=== PATIENT | female | born 1975 | race Caucasian/White ===

== ENCOUNTER 2017-03-19 10:30 | Outpatient (RCR) | payer BC ==
--- NOTE | 2017-03-13 15:51 | PT INITIAL EVALUATION ---
MEDICAL DIAGNOSIS: Stage 4 Breast Cancer TREATMENT DIAGNOSIS: Stage 4 Breast Cancer, Generalized Weakness DATE OF ONSET: 02/19/17 SUBJECTIVE: Kirti is a 42 year-old female presenting to physical therapy following progressive weakness secondary to stage 4 breast cancer diagnosis. Pt reports that she was first diagnosed in 2012 upon which she received chemotherapy. Following initiating treatment, pt had further progression of disease with metastases to the bones including ribs, pelvis, femur and shoulders. Pt was started on a medication which reduced spreading until this spring when it began spreading again. Pt had radiation of the liver to eliminate metastases present there. Pt has recently started on chemo again to manage progression until her liver enzymes improve so that she can receive immunotherapy. Pt is currently on her second round of chemo. Pt reports that she has had no difficulties or pain with her shoulders or upper back, but has started to develop low back pain as well as generalized weakness in her LE with occasional ache. Pt reports that her back and legs feel sore and tired at the end of the day and that she frequently has difficulty with tasks such as squatting, or dressing if she cannot sit down while donning and doffing pants. Pt reports that she was previously active with cross country skiing, and hiking , but has been very sedentary lately. Pt has a 5 year-old son that she would like to keep up with. 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 ROM: LE and UE ROM full without pain. Strength: LE MMT: Hip: flexion: B 4/5, Ext: B 3+/5, abd: B 5/5, Add B 4+/5. Knee : flexion: B 4+/5, ext: L 4+/5, R 5/5. Ankle: DF: B 4+/5, PF B: 5/5. 3 Finger Pinch [employer] strength: L 15#, R 14# (pt is right handed) Transverse Abdominal Activation: Grade 1 Sensation: Pt reports no numbness or tingling at this time. Mobility: ECOG Performance Status: Grade 3 Other Objective Findings: FACT-G: PWB: , SWB , EWB: , FWB: , Total: 86/108 ASSESSMENT: Pt shows signs and symptoms consistent with generalized weakness secondary to decreased activity with ongoing oncological intervention associated with stage 4 breast cancer diagnosis. Physical therapy is indicated to improve pt functional strength, endurance, and mobility for performance of ADL's, recreational activities, and for improved outcomes with ongoing oncological intervention. Short Term Goals In 2 weeks pt will be able to perform Grade 3 Transverse Abdominal Activation for core and lumbar spine stabilization for functional mobility and performance of ADL's. In 1 month pt will increase ECOG performance status to Level 2 for improved function with ADL's and decreased complications with ongoing oncological care. In 2 months pt will improve LE strength as tested by MMT to > 4+/5 in all major muscle groups for improved function. In 2 months pt will improve FACT-G score to >90/108 for improved functional well-being with ongoing oncological intervention. Patient's Goals Improve function, decrease fatigue and back pain. PLAN: Patient to be seen for Manual Therapy/STM/MET Strengthening/condition Ice/Heat Range of Motion Spinal Stabilization Ultrasound Stretching Iontophoresis Neuromuscular Re-ed Closed Chain Program Electrical Stim Posture/Body mechanics Gait Trg/Balance Trg Biofeedback Home Exercise Program Mech./Manual Traction Therapeutic Activities Pelvic Floor 1x/Week for 2 Months If you have any questions, comments, or concerns about this report or plan, please contact me at . Thank you, Tami Contreras, PT, DPT, CLT JENNIFER
[~2017-03-19 10:30] MED LIST: CALC1TAB32 PO; DEN120I SUBQ; ENZA40CA PO; HYDR-4309 PO; ONDA8TAB94 PO; OXYC-373 PO; OXYC-823 PO; OXYC20TA61 PO; OXYC5CAP21 PO; POLY17PO25 PO; PROC10TA4 PO; SENN1TAB9 PO; TYLENOL PM PO; ZOLP-350 PO
[2017-03-19] MEDS ORDERED: OXYC-823 PO (12:15)
--- NOTE | 2017-04-07 08:31 | PT PLAN OF CARE ---
Physician: LILIYA Dunbar Patient is being seen: 1x/Week Therapist: Tami Contreras, PT, DPT, CLT Medical Diagnosis: Stage 4 Breast Cancer Treatment Diagnosis: Stage 4 Breast Cancer, Generalized Weakness Date of Onset: 02/19/17 Date of Initial Evaluation: 03/12/17 Date patient was last seen: 03/19/17 Number of treatments: 2 Number of cancellations/No shows: 0 INTERVENTIONS: Manual Therapy/STM/MET Strengthening/condition Ice/Heat Range of Motion Spinal Stabilization Ultrasound Stretching Iontophoresis Neuromuscular Re-ed Closed Chain Program Electrical Stim Posture/Body mechanics Gait Trg/Balance Trg Biofeedback Home Exercise Program Mech./Manual Traction Therapeutic Activities Pelvic Floor GOALS: In 2 weeks pt will be able to perform Grade 3 Transverse Abdominal Activation for core and lumbar spine stabilization for functional mobility and performance of ADL's. In Progress In 1 month pt will increase ECOG performance status to Level 2 for improved function with ADL's and decreased complications with ongoing oncological care. MET In 2 months pt will improve LE strength as tested by MMT to > 4+/5 in all major muscle groups for improved function. In Progress In 2 months pt will improve FACT-G score to >90/108 for improved functional well-being with ongoing oncological intervention. In Progress PATIENT'S GOAL: Improve function, decrease fatigue and back pain. Status of Patient's Goals: 1/4 MET, 3/4 In Progress Patient Compliance: Good Prognosis: Good Reasons for discharge from therapy: Kirti is to discharge from physical therapy at this time secondary to pt enrollment in an immunotherapy trial associate with the [facility]. At the time of discharge, pt showed decreased side-effects and pain with increased activity level. Pt also showed good activation of transverse abdominal muscle and was able to progress independently with these exercises to manage low back pain. Following completion of immunotherapy trial, if pt is remaining to have symptoms she is encouraged to follow up with PT at that time. Posture: Thoracic kyphosis with rounded shoulders B and slight forward trunk lean with standing. ROM: LE and UE ROM full without pain. Strength: LE MMT: Hip: flexion: B 4/5, Ext: B 3+/5, abd: B 5/5, Add B 4+/5. Knee : flexion: B 4+/5, ext: L 4+/5, R 5/5. Ankle: DF: B 4+/5, PF B: 5/5. 3 Finger Pinch Tufter Operator strength: L 15#, R 14# (pt is right handed) Special Tests: FACT-G: PWB: , SWB , EWB: , FWB: , Total: 86 /108 Mobility: ECOG Performance Status: Grade 3 If you have any questions or concerns, please feel free to contact me at . Thank you, Tami Contreras, PT, DPT, CLT MTDD
== END 2017-03-19 18:00 | disposition home or self-care (01) ==
LOC: PT 10:30
PROVIDERS: ATTEND Nurse Practitioner Family
DX: C50.919 Malignant neoplasm of unspecified site of unspecified female breast (principal); M54.5 Low back pain; M62.81 Muscle weakness (generalized); C79.51 Secondary malignant neoplasm of bone; C78.7 Secondary malignant neoplasm of liver and intrahepatic bile duct; Z92.21 Personal history of antineoplastic chemotherapy
CPT/HCPCS: 97162

== ENCOUNTER → 2017-03-25 | Outpatient (CLI) | payer BC, OTHER ==
[~2017-03-25] MED LIST changes: +DENOSUMAB 120 MG/1.7 ML VIAL SUBQ ONE
[2017-03-25 16:33] VITALS: BP 112/74
== END ==
LOC: SPU 14:20
PROVIDERS: ATTEND Internal Medicine Medical Oncology
DX: C50.919 Malignant neoplasm of unspecified site of unspecified female breast (principal)
CPT/HCPCS: 96372; J0897

== ENCOUNTER 2017-04-02 09:59 | Outpatient (RCR) | payer BC, OTHER ==
[2017-02-05 15:06] VITALS: BP 127/88
[2017-02-05 15:59] LABS: PLATELET COUNT, AUTOMATED 480 K/uL (150-450)
--- NOTE | 2017-02-07 14:55 | ONCOLOGY FOLLOW UP NOTE ---
EVENT DATE: February 05, 2017 REASON FOR FOLLOWUP Metastatic triple negative breast cancer. CHIEF COMPLAINT Fatigue, calf pain. INTERIM HISTORY Kirti returns to clinic for a follow-up visit today. Since our last visit, she has been followed by Dr. Kidd and his team at the [facility]. She had enrolled on the Rexahn clinical trial , evaluating the p68 RNA helicase inhibitor. She began this trial on November 22. She did have some toxicity with the trial drug, including fatigue, nausea, and some other issues. Unfortunately, a follow-up CT scan performed on January 10 showed progression of disease. There was some thought to having her enter onto the Biothera trial, but the concern at this point is for significant progression causing liver function test abnormalities. It has been recommended to her that she receive cytotoxic chemotherapy. She would like to receive this chemotherapy in [place], closer to home. Today, Kirti reports that she continues to be fairly tired, but that quality of life remains pretty good. Her appetite has been fair. Nausea has been controlled pretty well. She has had issues with constipation due to oxycodone/ OxyContin. She feels that she has this under much better control at home. She requests refills of both pain medications today. REVIEW OF SYSTEMS Otherwise negative, and all systems are reviewed. ONCOLOGY HISTORY Triple negative breast cancer. * Initial diagnosis in July of 2012 with biopsy of a left breast 7 o'clock lesion. Pathology showed a grade III invasive ductal carcinoma, triple negative , Ki-67=30%. Staging scans revealed a bone metastasis involving rib. Biopsy of the rib lesion was consistent with metastatic breast cancer. She was initially treated with dose-dense AC followed by Taxol for a total of eight cycles with reported good clinical response, but increased bone metastasis. She was started on Xgeva and enzalutamide at that time as part of the DISHA 3100- 11 clinical trial (April 2013). She has tolerated enzalutamide remarkably well at 160 mg p.o. daily. * August 2014: CT of chest, abdomen and pelvis and bone scan showed stable findings. * In 2014, the patient moved to [place]. * November 22, 2014: CT of chest, abdomen and pelvis showed stable findings in comparison to August 2014 study. * July 10, 2016: CT scan reportedly shows new liver lesion measured at 11 mm and a 6 mm right lower lobe lung nodule. CT-PET scan was ordered. * Recent CT-PET scan reportedly shows hypermetabolic activity of this solitary liver lesion. * Current plan is for ablative procedure in Interventional Radiology with continuation of enzalutamide and Xgeva. * Focal therapy to liver metastasis via Interventional Radiology methods felt to be less than optimal, external beam radiotherapy recommended. * September 03, 2016 to October 01, 2016: Stereotactic body radiation therapy to solitary liver metastasis performed, 5000 cGy in five fractions. * October 07 017: Nuclear Medicine bone scan reveals multifocal bony metastatic disease with progression from prior study, concern for lesion in mid shaft of femur notable. * November 22, 2016: Enrollment on Rexahn clinical trial (p68 RNA helicase inhibitor). * January 10, 2017: CT scan reveals evidence of progression of disease. CURRENT MEDICATIONS 1. MiraLax p.r.n. 2. OxyContin 10 mg p.o. b.i.d. 3. Tylenol p.r.n. 4. Percocet p.r.n. 5. Xgeva. 6. Calcium/vitamin D3. ALLERGIES CODEINE. SOCIAL HISTORY The patient is a nonsmoker. There is no history of alcohol abuse or illicit drug use. She lives here in [place]. FAMILY HISTORY There is a history of gastric cancer in a maternal aunt and another maternal aunt was diagnosed with ovarian cancer. VITAL SIGNS Temperature 98.3, blood pressure 127/88, pulse 106, respirations 16, oxygen saturation is 93% on room air. Weight is 60 kg. PHYSICAL EXAMINATION GENERAL: Patient is alert and oriented times three, in no apparent distress sitting in the exam room chair. She is interactive and quite pleasant. She is thin. HEENT: Exam reveals anicteric sclerae. NEUROLOGIC: Exam is grossly nonfocal and her gait is normal. EXTREMITIES: Exam reveals no edema, clubbing or cyanosis. SKIN: Exam reveals no concerning rash or lesion. Skin is somewhat pale. LABORATORY STUDIES AND IMAGING [facility] and [facility] records. ASSESSMENT AND PLAN Metastatic triple negative breast cancer. I had a good visit with Kirti today. We spent time reviewing her experience on clinical trial that took place since our last visit. She is understandably disappointed that she is not going to be able to enroll on the Biothera trial at this time. She understands the need for cytotoxic chemotherapy. We spent time reviewing records from the [facility] and [facility]. The recommendation has been made for her to receive TC, or perhaps Taxol, cyclophosphamide in an effort to get this triple negative breast cancer to regress to the point that her liver function studies improve. She understands the plan moving forward to have her receive two cycles of chemotherapy, and for her then to have short term re-imaging with CT scan. I think this can take place in [place], and we will be sure to be in touch with Dr. Kidd and his team at the [facility]. I have refilled her OxyContin and oxycodone today. Constipation seems to be well under control at home. Kirti will have close followup here as she initiates chemotherapy. Her next visit here will be for chemotherapy education with LILIYA Dunbar. I will plan to see her on my next trip to [facility] in [place]. I spent a total of 30 minutes of time face to face with the patient today, and at least 25 minutes of this was spent in direct counseling and coordination of care. JENNIFER
[2017-02-21 10:09] VITALS: BP 120/84
[2017-02-21] MEDS: NS(*) 0.9% 500 ML BAG 500 ML IV PRN (11:00)
[2017-02-21] MEDS: LIDOCAINE/SOD BICARB 8.4% SYR ID PRN (11:00)
[2017-02-21] MEDS: PALONOSETRON 0.25 MG/5 ML VIAL IVP PRN (11:42)
[2017-02-21] MEDS: DEXAMETHASONE SOD PHOS 10MG/ML IVP PRN (11:42)
[2017-02-21] MEDS: HEPARIN FLSH (PORT) 500 UN/5ML IVP PRN (14:52)
[2017-02-28 10:16] VITALS: BP 131/85
[2017-02-28] MEDS: LIDOCAINE/SOD BICARB 8.4% SYR ID PRN (10:17)
[2017-02-28] MEDS: DEXAMETHASONE SOD PHOS 10MG/ML IVP PRN (10:55)
[2017-02-28] MEDS: NS(*) 0.9% 500 ML BAG 500 ML IV PRN (10:57)
[2017-02-28 12:38] VITALS: BP 111/76
[2017-02-28] MEDS: HEPARIN FLSH (PORT) 500 UN/5ML IVP PRN (12:45)
[2017-03-05 15:53] VITALS: BP 128/93
[2017-03-07 09:31] VITALS: BP 138/93
[2017-03-07 09:40] LABS: PLATELET COUNT, AUTOMATED 81 K/uL (150-450)
[2017-03-12 09:52] VITALS: BP 116/78
--- NOTE | 2017-03-12 10:02 | ONC Progress Note - NP.Halsey ---
Patient History Date of Service Mar 12, 2017 Reason For Visit/HPI Patient is seen in the clinic today for follow-up of her metastatic triple negative breast cancer. She will receive cycle 2 day 1 of carbo and Gemzar today. Patient reports that she had emesis post both previous treatments. She is taking Compazine and has Zofran at home as well. She currently is having diarrhea and plans to decrease her Senokot to 1 tablet daily. She has been taking Senokot because of previously having constipation with her pain medications. She reports that her pain is slightly decreased and she is only taking OxyContin 10 mg twice daily. She has not required breakthrough pain management but has oxycodone if needed. She does feel weak and fatigued. She consult it with physical therapy today and receive some exercises that she can do at home. Problem List (1) Breast cancer, stage 4 Oncology History Triple negative breast cancer. * Initial diagnosis in July of 2012 with biopsy of a left breast 7 o'clock lesion. Pathology showed a grade III invasive ductal carcinoma, triple negative , Ki-67=30%. Staging scans revealed a bone metastasis involving rib. Biopsy of the rib lesion was consistent with metastatic breast cancer. She was initially treated with dose-dense AC followed by Taxol for a total of eight cycles with reported good clinical response, but increased bone metastasis. She was started on Xgeva and enzalutamide at that time as part of the DISHA 3100- 11 clinical trial (April 2013). She has tolerated enzalutamide remarkably well at 160 mg p.o. daily. * August 2014: CT of chest, abdomen and pelvis and bone scan showed stable findings. * In 2014, the patient moved to [place]. * November 22, 2014: CT of chest, abdomen and pelvis showed stable findings in comparison to August 2014 study. * July 10, 2016: CT scan reportedly shows new liver lesion measured at 11 mm and a 6 mm right lower lobe lung nodule. CT-PET scan was ordered. * Recent CT-PET scan reportedly shows hypermetabolic activity of this solitary liver lesion. * Current plan is for ablative procedure in Interventional Radiology with continuation of enzalutamide and Xgeva. * Focal therapy to liver metastasis via Interventional Radiology methods felt to be less than optimal, external beam radiotherapy recommended. * September 03, 2016 to October 01, 2016: Stereotactic body radiation therapy to solitary liver metastasis performed, 5000 cGy in five fractions. * October 07 017: Nuclear Medicine bone scan reveals multifocal bony metastatic disease with progression from prior study, concern for lesion in mid shaft of femur notable. * November 22, 2016: Enrollment on Rexn clinical trial (p68 RNA helicase inhibitor). * January 10, 2017: CT scan reveals evidence of progression of disease. * Carboplatin and Gemzar started 02/19/2017. Medical History Family History: FH: gastric cancer Maternal aunt FH: ovarian cancer aunt Psychosocial History Social History Patient is and has 1 child Alcohol History She denies abuse Recreational Drug History She denies abuse Smoking History: Yes (12 YRS 03/25 PPD QUIT 2007) Smoking Status: Former Smoker Medications and Allergies Active Scripts Prochlorperazine Maleate (Compazine) 10 Mg Tablet, 10 MG PO Q6H, #60 TAB Prov:ANAHI GRAVES RADIOLOGIC TECHNOLOGY TEACHER-BC, ONC 02/28/17 Oxycodone Hcl (OXYCONTIN) 10 Mg Tab.er.12h, 10 MG PO BID, #90 TAB Take 10mg or 20 mg (1-2 tablets) every 12 hours for pain management Prov:ANAHI GRAVES RADIOLOGIC TECHNOLOGY TEACHER-BC, ONC 02/20/17 Ondansetron (ZOFRAN ODT) 8 Mg Tab.rapdis, 8 MG PO Q8H, #30 TAB 3 Refills Prov:ANAHI GRAVES RADIOLOGIC TECHNOLOGY TEACHER-BC, ONC 02/18/17 Oxycodone Hcl (OXYCODONE HCL) 5 Mg Capsule, 5 MG PO Q4-6H for PAIN, #120 CAPSULE Prov:ANAHI GRAVES RADIOLOGIC TECHNOLOGY TEACHER-BC, ONC 02/18/17 Zolpidem Tartrate (AMBIEN) 10 Mg Tablet, 1 TAB PO QHS, #30 TAB 2 Refills Prov:ANAHI GRAVES RADIOLOGIC TECHNOLOGY TEACHER-BC, ONC 02/18/17 Hydrocodone Bit/Acetaminophen (NORCO 5-325 TABLET) 1 Each Tablet, 1 EACH PO Q4H Y for PAIN, #30 TAB Prov:ZULEYKA WARREN MD 02/11/17 Reported Medications Sennosides/Docusate Sodium (SENNA LAXATIVE TABLET) 1 Each Tablet, 1 EACH PO 02/07/17 Denosumab (XGEVA) 120 Mg/1.7 Ml Vial, 120 MG SUBQ for breast CA, VIAL 3/10/16 Allergies: Coded Allergies: codeine (Verified Adverse Reaction, Intermediate, NAUSEA/VOMITING, ) Review of System/Physical Exam Review of Systems All Systems Reviewed/Normal: Yes, Except as Noted Constitutional: Positive for Appetite/Weight Change (patient has had weight loss thought to be related to diarrhea) Gastrointestinal: Diarrhea (patient will decrease Senokot to 1 tablet daily), Abdominal Pain Hematologic: Positive for Fatigue, Positive for Weakness (patient has followed with physical therapy) Psychiatric: Anxiety Physical Exam Vital Signs Temperature: 97.2 Pulse: 97 BP Systolic: 116 BP Diastolic: 78 Respiratory Rate: 18 O2 SAT: 95 O2 Delivery: Room Air Height (inches) 66.00 Weight lb: 128 Weight oz: Weight Kg (Antolin): [id number] Pain: 0 ECOG Score: 1 General: Stable, Well Developed, Not Well Nourished (patient is thin), Not In Acute Distress Neck: Supple Lungs: Clear to Auscultation Heart: Regular Rate, Regular Rhythm, No Gallops, No Murmurs Abdomen: Tenderness, Hepatosplenomegaly Extremities: No Cyanosis, No Edema Lymphadenopathy: No Cervical Psychiatric: Mood appears normal, Affect appears normal Skin: No Skin Rashes, No Bruising, No Purpura Diagnostic Studies Diagnostic Studies Laboratory Item Value Date Time Aspartate Amino Transf (AST/SGOT) 283 U/L H 02/28/17 1010 Alanine Aminotransferase (ALT/SGPT) 127 U/L H 02/28/17 1010 Alkaline Phosphatase 568 U/L H 02/28/17 1010 Aspartate Amino Transf (AST/SGOT) 162 U/L H 03/07/17 0933 Alanine Aminotransferase (ALT/SGPT) 120 U/L H 03/07/17 0933 Alkaline Phosphatase 786 U/L H 03/07/17 0933 Aspartate Amino Transf (AST/SGOT) 107 U/L H 03/12/17 0945 Alanine Aminotransferase (ALT/SGPT) 99 U/L H 03/12/17 0945 Alkaline Phosphatase 674 U/L H 03/12/17 0945 Laboratory Tests 03/12/17 09:45 Laboratory Tests 03/07/17 09:33: Red Blood Count 3.45, Mean Corpuscular Volume 87.1, Mean Corpuscular Hemoglobin 28.6, Mean Corpuscular Hemoglobin Concent 32.9, Red Cell Distribution Width 23.2 , Mean Platelet Volume 7.4, Monocytes (%) (Auto) 8.8, Eosinophils (%) (Auto) 0.0 , Basophils (%) (Auto) 0.2, Nucleated RBC Relative Count (auto) 0.1, Monocytes # (Auto) 0.3, Eosinophils # (Auto) 0.0, Basophils # (Auto) 0.0, Nucleated RBC Absolute Count (auto) 0.00, Peripheral Blood Smear Yes 03/12/17 09:45: White Blood Count 5.3, Hemoglobin 10.9, Hematocrit 32.7, Platelet Count 353, Neutrophils (%) (Auto) 62.9, Lymphocytes (%) (Auto) 26.5, Neutrophils # (Auto) 3.3, Lymphocytes # (Auto) 1.4 Assessment and Plan Assessment & Plan Metastatic triple negative breast cancer. Patient is recently followed with Dr. Anibal Sands with the recommendation start chemotherapy to get this triple negative breast cancer to regress to the point that her liver function studies improve. Patient started gemcitabine and carboplatin on 02/19/2017. She is scheduled for cycle 2 day 1. She is having a significant response to her liver enzymes, decreased pain in the liver and abdomen and overall feeling better. Patient has decreased her pain medication to 10 mg OxyContin twice a day. She has started with physical therapy for some strengthening exercises. She is trying to eat well. She has weight loss thought to be related to diarrhea. She will decrease her Senokot to 1 tablet a day and may be able to discontinue use. She is having nausea and emesis post both cycle 1 day 1, and cycle 1 day 8. I will add Emend 150 mg IV to her regimen as a premed on day 1 and will add Aloxi to day 8. Her pharmacist is fixed this order and we ceased prior authorization through her insurance company. She does have Compazine and Zofran at home and this was reviewed on how to take them again today. Patient will return in one week. She will call us if she has questions or concerns. I personally spent a total of 20 minutes. Of that 20 minutes was counseling/ coordination of patient's care. See my note above for details. ANAHI GRAVES RADIOLOGIC TECHNOLOGY TEACHER-BC, ONC Mar 12, 2017 10:01
[2017-03-12] MEDS: DEXAMETHASONE SOD PHOS 10MG/ML IVP PRN (10:35)
[2017-03-12] MEDS: PALONOSETRON 0.25 MG/5 ML VIAL IVP PRN (10:35)
[2017-03-12] MEDS: HEPARIN FLSH (PORT) 500 UN/5ML IVP PRN (15:44)
[2017-03-12] MEDS: NS(*) 0.9% 500 ML BAG 500 ML IV PRN (15:44)
[2017-03-12] MEDS: LIDOCAINE/SOD BICARB 8.4% SYR ID PRN (15:44)
--- NOTE | 2017-03-15 05:53 | ONCOLOGY FOLLOW UP NOTE ---
EVENT DATE: March 05, 2017 REASON FOR FOLLOWUP Metastatic triple negative breast cancer. CHIEF COMPLAINT Fatigue. INTERIM HISTORY Kirti returns to clinic for a follow-up visit today. She is here with her family. Since our last visit, she has started palliative carboplatin and gemcitabine. She has completed one cycle. She reports the first week was somewhat rough, but she had started to feel much better thereafter. Her pain has improved significantly. She is working on weaning herself away from OxyContin. She reports no fever. She has had a fair appetite, and her weight has been stable. She denies changes in her bowel habits, although she has been dealing with constipation at home due to opioid pain medicine. She reports no new urinary symptoms. She denies fever. REVIEW OF SYSTEMS Otherwise negative, and all systems were reviewed. ONCOLOGY HISTORY Triple negative breast cancer. * Initial diagnosis in July of 2012 with biopsy of a left breast 7 o'clock lesion. Pathology showed a grade III invasive ductal carcinoma, triple negative , Ki-67=30%. Staging scans revealed a bone metastasis involving rib. Biopsy of the rib lesion was consistent with metastatic breast cancer. She was initially treated with dose-dense AC followed by Taxol for a total of eight cycles with reported good clinical response, but increased bone metastasis. She was started on Xgeva and enzalutamide at that time as part of the MDB 3100- 11 clinical trial (April 2013). She has tolerated enzalutamide remarkably well at 160 mg p.o. daily. * August 2014: CT of chest, abdomen and pelvis and bone scan showed stable findings. * In 2014, the patient moved to [place]. * November 22, 2014: CT of chest, abdomen and pelvis showed stable findings in comparison to August 2014 study. * July 10, 2016: CT scan reportedly shows new liver lesion measured at 11 mm and a 6 mm right lower lobe lung nodule. CT-PET scan was ordered. * Recent CT-PET scan reportedly shows hypermetabolic activity of this solitary liver lesion. * Current plan is for ablative procedure in Interventional Radiology with continuation of enzalutamide and Xgeva. * Focal therapy to liver metastasis via Interventional Radiology methods felt to be less than optimal, external beam radiotherapy recommended. * September 03, 2016 to October 01, 2016: Stereotactic body radiation therapy to solitary liver metastasis performed, 5000 cGy in five fractions. * October 07 017: Nuclear Medicine bone scan reveals multifocal bony metastatic disease with progression from prior study, concern for lesion in mid shaft of femur notable. * November 22, 2016: Enrollment on Rexahn clinical trial (p68 RNA helicase inhibitor). * January 10, 2017: CT scan reveals evidence of progression of disease. * February 21, 2017: Patient begins palliative carboplatin and gemcitabine. CURRENT MEDICATIONS 1. MiraLax p.r.n. 2. OxyContin 10 mg p.o. b.i.d. 3. Tylenol p.r.n. 4. Percocet p.r.n. 5. Xgeva. 6. Calcium/vitamin D3. ALLERGIES CODEINE. SOCIAL HISTORY The patient is a nonsmoker. There is no history of alcohol abuse or illicit drug use. She lives here in [place]. FAMILY HISTORY There is a history of gastric cancer in a maternal aunt and another maternal aunt was diagnosed with ovarian cancer. VITAL SIGNS Temperature is 96.4, blood pressure 128/93, heart rate is 79, respirations 16, oxygen saturation is 99% on room air. Weight is 57.8 kg. PHYSICAL EXAMINATION GENERAL: Patient is alert and oriented times three, in no apparent distress, sitting in the exam room chair. She is interactive and very pleasant. HEENT: Exam reveals anicteric sclerae. NEUROLOGIC: Exam is grossly nonfocal and her gait is normal. EXTREMITIES: Exam reveals no edema, clubbing or cyanosis. SKIN: Exam reveals no concerning rash or lesion. LABORATORY STUDIES Reviewed per the [facility] record. ASSESSMENT AND PLAN Metastatic triple negative breast cancer. Kirti has started carboplatin and gemcitabine, and she will be starting her second cycle soon. We spent time discussing her experience so far with this chemotherapy regimen. Toxicity has been tolerable to date. Encouragingly, she has had some improvement in her liver function tests, hypercalcemia has resolved, and her pain is getting better. She will be weaning herself away from the OxyContin over the course of the next one to two weeks. Toward the end of our visit today, she did report that when she blows her nose she has seen a little bit of blood. We reviewed her labs, and she did have a fall in her platelet count. Her nose bleeds have not been severe, but I have recommended that she have a repeat CBC drawn by the end of this week. She agrees to do so. I will plan to see Kirti back for followup in March, and she will have her next cycle visit with Ami Trejo, nurse practitioner, here in about one week. JENNIFER
[2017-03-19] MEDS: NS(*) 0.9% 500 ML BAG 500 ML IV PRN (09:50)
[2017-03-19] MEDS: LIDOCAINE/SOD BICARB 8.4% SYR ID PRN (09:55)
[2017-03-19 09:59] LABS: PLATELET COUNT, AUTOMATED 385 K/uL (150-450)
[2017-03-19] MEDS: HEPARIN FLSH (PORT) 500 UN/5ML IVP PRN (11:00)
[2017-03-19 11:58] VITALS: BP 124/78
[2017-03-25 14:31] LABS: PLATELET COUNT, AUTOMATED 302 K/uL (150-450)
[2017-03-26 09:31] VITALS: BP 117/80
[2017-03-26] MEDS: NS(*) 0.9% 500 ML BAG 500 ML IV PRN (09:47)
[2017-03-26] MEDS: LIDOCAINE/SOD BICARB 8.4% SYR ID PRN (09:47)
[2017-03-26] MEDS: PALONOSETRON 0.25 MG/5 ML VIAL IVP PRN (09:48)
[2017-03-26] MEDS: DEXAMETHASONE SOD PHOS 10MG/ML IVP PRN (09:48)
[2017-03-26] MEDS: HEPARIN FLSH (PORT) 500 UN/5ML IVP PRN (10:31)
[~2017-04-02] VITALS: Ht 167.6 cm; Wt 59.0 kg
[~2017-04-02 09:59] MED LIST changes: +ALTEPLASE RECOMB 2 MG VIAL IVP PRN; +CARBOPLATIN IVPB ONE; -DENOSUMAB 120 MG/1.7 ML VIAL SUBQ ONE; +DEXTROSE 5%(*) 100 ML BAG 100 ML IVPB PRN; +FOSAPREPITANT DIM 150 MG/5 ML 150 MG in NS(*) 0.9% 250 ML BAG 245 ML IVPB PRN; +GEMCITABINE IVPB ONE; +NS 0.9% IVPB ONE; +NS(*) 0.9% 100 ML BAG 100 ML IVPB PRN; +WATER STERILE 10 ML VIAL IVP PRN; +[UNRECOGNIZED DRUG - OTHER] IVPB ONE
[2017-04-02 10:03] VITALS: BP 122/77
--- NOTE | 2017-04-02 19:43 | ONCOLOGY FOLLOW UP NOTE ---
EVENT DATE: April 02, 2017 REASON FOR FOLLOWUP Metastatic triple negative breast cancer. CHIEF COMPLAINT Lower sternal discomfort. INTERIM HISTORY Kirti returns to clinic for a follow-up visit today. She reports that she has been feeling pretty good in general. 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 Her pain has been very easy to control, and she is happy about the current status of her pain control. She does report that she has developed some lower sternal pain that happens on occasion. She cannot really relate this discomfort to food, but she does state that it happens more often when she is lying flat. She has had no shortness of breath and no productive cough. She denies fever. Otherwise her appetite has been good, and her weight has been stable. REVIEW OF SYSTEMS Otherwise negative, and all systems were reviewed. ONCOLOGY HISTORY Triple negative breast cancer. * Initial diagnosis in July of 2012 with biopsy of a left breast 7 o'clock lesion. Pathology showed a grade III invasive ductal carcinoma, triple negative , Ki-67=30%. Staging scans revealed a bone metastasis involving rib. Biopsy of the rib lesion was consistent with metastatic breast cancer. She was initially treated with dose-dense AC followed by Taxol for a total of eight cycles with reported good clinical response, but increased bone metastasis. She was started on Xgeva and enzalutamide at that time as part of the 3100- 11 clinical trial (April 2013). She has tolerated enzalutamide remarkably well at 160 mg p.o. daily. * August 2014: CT of chest, abdomen and pelvis and bone scan showed stable findings. * In 2014, the patient moved to [place]. * November 22, 2014: CT of chest, abdomen and pelvis showed stable findings in comparison to August 2014 study. * July 10, 2016: CT scan reportedly shows new liver lesion measured at 11 mm and a 6 mm right lower lobe lung nodule. CT-PET scan was ordered. * Recent CT-PET scan reportedly shows hypermetabolic activity of this solitary liver lesion. * Current plan is for ablative procedure in Interventional Radiology with continuation of enzalutamide and Xgeva. * Focal therapy to liver metastasis via Interventional Radiology methods felt to be less than optimal, external beam radiotherapy recommended. * September 03, 2016 to October 01, 2016: Stereotactic body radiation therapy to solitary liver metastasis performed, 5000 cGy in five fractions. * October 07 017: Nuclear Medicine bone scan reveals multifocal bony metastatic disease with progression from prior study, concern for lesion in mid shaft of femur notable. * November 22, 2016: Enrollment on [facility] clinical trial (p68 RNA helicase inhibitor). * January 10, 2017: CT scan reveals evidence of progression of disease. * February 21, 2017: Patient begins palliative carboplatin and gemcitabine. * April 11, 2016: Plan is to begin immunotherapy trial at [facility] with Dr. Christian Kidd. CURRENT MEDICATIONS 1. MiraLax p.r.n. 2. OxyContin 10 mg p.o. b.i.d. 3. Tylenol p.r.n. 4. Percocet p.r.n. 5. Xgeva. 6. Calcium/vitamin D3. ALLERGIES CODEINE. SOCIAL HISTORY The patient is a nonsmoker. There is no history of alcohol abuse or illicit drug use. She lives here in [place]. FAMILY HISTORY There is a history of gastric cancer in a maternal aunt and another maternal aunt was diagnosed with ovarian cancer. VITAL SIGNS Temperature is 99.2, blood pressure 122/77, heart rate is 93, respirations 16, oxygen saturation is 94% on room air. Weight is 59 kg. PHYSICAL EXAMINATION GENERAL: Patient is alert and oriented times three, in no apparent distress, sitting in the exam room chair. She is in good spirits and quite interactive. She appears healthy. HEENT: Exam reveals anicteric sclerae. No significant oropharyngeal lesions. NEUROLOGIC: Exam is grossly nonfocal and her gait is normal. EXTREMITIES: Exam reveals no edema, clubbing or cyanosis. SKIN: Exam reveals no concerning rash or lesion. LABORATORY STUDIES Reviewed per the [employer] record. IMAGING March 21, CT scan of chest, abdomen and pelvis reveals response to therapy with improvement in pulmonary nodules, lymphadenopathy, and hepatic metastatic disease. Sclerotic lesions in the bones appear stable on CT. Nuclear Medicine bone scan performed on March 21 does reveal what appears to be some interval worsening, but likely due to reformation of bone. ASSESSMENT AND PLAN Triple negative metastatic breast cancer. I had a good visit with Kirti today. Symptomatically, she is doing remarkably well. She has had a very nice response to palliative carboplatin and gemcitabine. She has followed up with Dr. Kidd at [facility]. The plan at this point is to move forward with enrollment on another immunotherapy trial there. She reports she will have weekly visits back and forth. We discussed that a return to chemotherapy certainly would not be unreasonable depending on outcome on the immunotherapy trial. I have reviewed records from her recent visit. Dr. Kidd rightly feels that the patient should consider additional testing, given her family history. Because she is going to have quite regular visits at the [facility], I would query whether this could be done there, as opposed to here in [place] or in [facility]. For the time being, we will have her follow up here as needed, as she will be busy on the clinical trial. We are certainly available to her if she has any needs with ongoing therapy. MTDD
== END 2017-05-05 ==
LOC: ONC 09:59
PROVIDERS: ATTEND Internal Medicine Medical Oncology
DX: Z51.11 Encounter for antineoplastic chemotherapy (principal); C50.912 Malignant neoplasm of unspecified site of left female breast; Z17.1 Estrogen receptor negative status [ER-]; R53.83 Other fatigue; R11.0 Nausea; Z79.899 Other long term (current) drug therapy; R53.1 Weakness
CPT/HCPCS: 36415; 82378; 83735; 84100; 85025; 85027; 86300; 96367; 96375; 96413; 96415; 96417; 99212; J1100; J1642; J2469; J7040; J7050; J9045; J9201; 82040; 82247; 82310; 82374; 82435; 82565; 82947; 84075; 84132; 84155; 84295; 84450; 84460; 84520

== ENCOUNTER → 2017-04-23 | Outpatient (CLI) | payer BC, OTHER ==
[~2017-04-23] MED LIST changes: -ALTEPLASE RECOMB 2 MG VIAL IVP PRN; -CARBOPLATIN IVPB ONE; +DENOSUMAB 120 MG/1.7 ML VIAL SUBQ ONE; -DEXTROSE 5%(*) 100 ML BAG 100 ML IVPB PRN; -FOSAPREPITANT DIM 150 MG/5 ML 150 MG in NS(*) 0.9% 250 ML BAG 245 ML IVPB PRN; -GEMCITABINE IVPB ONE; -NS 0.9% IVPB ONE; -NS(*) 0.9% 100 ML BAG 100 ML IVPB PRN; -WATER STERILE 10 ML VIAL IVP PRN; -[UNRECOGNIZED DRUG - OTHER] IVPB ONE
[2017-04-23 08:21] VITALS: BP 117/87
== END ==
LOC: SPU 07:36
PROVIDERS: ATTEND Internal Medicine Medical Oncology
DX: C50.919 Malignant neoplasm of unspecified site of unspecified female breast (principal)
CPT/HCPCS: 96372; J0897

== ENCOUNTER → 2017-05-29 | Outpatient (CLI) | payer BC, OTHER ==
[2017-05-29 11:55] VITALS: BP 121/77
== END ==
LOC: SPU 07:35
PROVIDERS: ATTEND Internal Medicine Medical Oncology
DX: C50.919 Malignant neoplasm of unspecified site of unspecified female breast (principal)
CPT/HCPCS: 96372; J0897

== ENCOUNTER 2017-06-11 13:45 | Inpatient (IN) | payer BC, OTHER ==
[~2017-06-11] VITALS: Ht 167.6 cm; Wt 59.4 kg
[~2017-06-11 13:45] MED LIST changes: -DENOSUMAB 120 MG/1.7 ML VIAL SUBQ ONE
[2017-06-11] MEDS ORDERED: NS(*) 0.9% 1000 ML BAG 1,000 ML IV ONE (14:11)
[2017-06-11] MEDS ORDERED: ONDANSETRON 4 MG/2 ML VIAL IVP ONE (14:15)
[2017-06-11] MEDS ORDERED: IOPAMIDOL 76% 75 ML INFUS BTL 75 ML ONE (14:38)
[2017-06-11 14:40] LABS: INR 1.29
[2017-06-11 14:41] LABS: PLATELET COUNT, AUTOMATED 166 K/uL (150-450)
--- NOTE | 2017-06-11 15:15 | RADIOLOGY IMAGING REPORT ---
[place] [facility] [place] Kirti Olivares : 1975 MR: [id number] V: [id number] EXAM DATE: ORDERING PHYSICIAN: BALAJI GONZALEZ TECHNOLOGIST: Location: [facility] [place] Patient: Kirti Olivares : 1975 Visit/Account:[id number] Date of Sevice: 06/11/2017 Exam type: CHEST PA AND LAT History: Pain, history of breast cancer Comparison: None. Findings: Patchy airspace disease at the lung bases greater on the left is noted with a small left effusion. Th ere appears to be a 2 cm left upper lobe nodule as well as a left perihilar nodule and I cannot exclu de metastatic disease in this patient with known breast cancer. Heart size is normal. Right-sided chemotherapy catheter has its tip in SVC. The osseous structures junction a scoliosis. Patient reportedly has known bone metastasis not well ap preciated by plain film radiography. IMPRESSION: 1. Patchy consolidation at the lung bases greater on the left with a small left effusion concerning f or pneumonia. 2. Left upper lobe and left perihilar nodule identified potentially metastatic in this patient with k nown breast cancer. Recommend a CT scan of the chest for further evaluation. Report Dictated By: Anatoly Borrego MD at 06/11/2017 3:05 PM Report E-Signed By: Anatoly Borrego MD at 06/11/2017 3:10 PM WSN:[id number]
--- NOTE | 2017-06-11 15:41 | RADIOLOGY IMAGING REPORT ---
[place] [facility] [place] NAME: Kirti Olivares : 1975 MR: [id number] V: [id number] EXAM DATE: ORDERING PHYSICIAN: BALAJI GONZALEZ TECHNOLOGIST: Location: [facility] [place] Patient: Kirti Olivares : 1975 Visit/Account:[id number] Date of Sevice: 06/11/2017 EXAMINATION: CT abdomen and pelvis with IV contrast HISTORY: History of breast cancer. Evaluate for metastatic disease. TECHNIQUE: Axial CT images of the abdomen and pelvis were obtained with IV contrast, with coronal a nd sagittal 2D reconstructed images. One of the following dose optimization techniques was utilized in the performance of this exam: Autom ated exposure control; adjustment of the mA and/or kV according to the patient's size; or use of an i terative reconstruction technique. Specific details can be referenced in the facility's radiology C T exam operational policy. Contrast: 75 mL of IV Isovue-370. COMPARISON: 08/22/2016. FINDINGS: Liver: There are innumerable heterogeneous hypoenhancing masses present throughout the entire liver compatible with extensive metastatic disease. There is associated hepatomegaly. The liver measures 28 .5 cm in length, extending into the upper pelvis, previously measuring 17.6 cm. Masses are essentiall y confluent involving all segments of the liver, and discrete individual masses are poorly defined, b ut with the largest discrete mass measuring approximately 4.3 x 3.5 cm in segment VII (image 55). On the prior exam of 2016 there was only a single poorly defined 2.4 cm mass in the right lobe. The hepa tic veins and portal veins are attenuated but patent. Gallbladder and bile ducts: Negative. Spleen: Negative. Pancreas: Negative. Adrenal glands: Negative. Kidneys: Negative. No hydronephrosis or urinary calculi. Bowel and peritoneum: The small bowel and colon are normal in caliber. No bowel obstruction. No loca lized bowel wall thickening. Small volume of ascites in the pelvis with trace perihepatic fluid. No f ree intraperitoneal air. Pelvic structures: The uterus is anteverted in position, with an IUD in place. There is a 2 cm pe ripherally enhancing cyst in the right adnexa, likely a physiologic corpus luteum. Lymph node assessment: There are multiple enlarged lymph nodes in the abdomen and pelvis, compatible with metastatic disease. Enlarged lymph nodes are present in the periportal region, retroperitoneum, left iliac chain, and left inguinal region. Largest discrete lymph nodes include a 3.0 x 1.9 cm viviane portal lymph node superior to the main portal vein (image 57), a 2.7 x 1.9 cm retroperitoneal lymph n ode along the upper right para-aortic level (image 67), a 2.3 x 1.9 cm lymph node mass along the left external iliac chain (image 125), a 2.7 x 2.0 cm node along the lower left external iliac chain (serge ge 127), and a 2.8 x 1.9 cm left inguinal node (image 154). Vessels: Negative. Musculoskeletal: Extensive sclerotic lesions throughout the visualized bones have progressed, roc tible with metastatic disease. There is involvement of every visualized vertebral level as well as mu ltiple lesions in the bony pelvis. The known lesions in the left sacrum appear grossly stable but the re are numerous new lesions throughout the visualized bones. Body wall: Negative. Lung bases: There is a new small layering left pleural effusion, with associated areas of nodular en hancement along the pleural surfaces at the left lung base, compatible with malignancy. There are mul tiple irregular nodules throughout the visualized lower lungs, compatible with metastatic disease. Th e largest lesion measures approximately 2.6 x 1.9 cm in the left lung base (image 11). IMPRESSION: 1. Extensive metastatic disease in the abdomen and pelvis has progressed since the prior CT of 2017. 2. The liver is enlarged and essentially replaced by innumerable poorly defined metastatic lesions. T he largest discrete mass measures approximately 4.3 cm, but masses are essentially confluent an indiv idual masses ar not well-defined. 3. Adenopathy throughout the abdomen and pelvis compatible with metastatic disease, including enlarge d periportal, retroperitoneal, left iliac, and left inguinal lymph nodes.4. Visualized metastatic dis ease in the lower chest. There is a small layering left pleural effusion with areas of nodular enhanc ement along the pleural surfaces as well as numerous small irregular nodules in the visualized lower lungs. 5. Progressive osseous metastatic disease with extensive ill-defined sclerotic lesions throughout the visualized bones. 6. Small volume of ascites. Findings were discussed with BALAJI GONZALEZ at 06/11/2017 3:32 PM. Report Dictated By: Vishnu Flores MD at 06/11/2017 3:17 PM Report E-Signed By: Vishnu Flores MD at 06/11/2017 3:36 PM WSN:[id number]
--- NOTE | 2017-06-11 16:31 | ER Report ---
History and Physical Time Seen By MD: 13:10 Hx. of Stated Complaint: PATIENT REPORTS NOT FEELING WELL FOR THE LAST WEEK. SHE HAS BREAST CA WITH METS TO LUNGS AND LIVER. SHE RECENTLY STOPPED IMMNOTHERAPY AND IS SCHEDULED TO BEGIN CHEMO AGAIN ON FRIDAY. HPI/ROS CHIEF COMPLAINT: Abdominal pain HISTORY OF PRESENT ILLNESS: 42-year-old female history of metastatic liver disease and cancer comes emergency Department today with worsening abdominal pain or discomfort. Patient was on a chemotherapy with good results and decided to switch to a experimental protocol subsequently 3 months there is extensive metastatic disease including liver abdomen pelvis lymphadenopathy bony metastasis pain is localized to the abdominal area with extensive abdominal swelling and metastatic disease process vision is nausea vomiting no chest pain otherwise unremarkable REVIEW OF SYSTEMS: Respiratory: No cough, no dyspnea. Cardiovascular: No chest pain, no palpitations. Gastrointestinal: No vomiting, no abdominal pain. Musculoskeletal: No back pain. Remainder of the 14 system rev: Yes Allergies: Coded Allergies: codeine (Verified Adverse Reaction, Intermediate, NAUSEA/VOMITING, ) Home Meds Active Scripts Oxycodone Hcl (OXYCONTIN) 10 Mg Tab.er.12h, 10 MG PO BID, #90 TAB Take 10mg or 20 mg (1-2 tablets) every 12 hours for pain management Prov:ANAHI GRAVES [facility]-, ONC 05/29/17 Prochlorperazine Maleate (Compazine) 10 Mg Tablet, 10 MG PO Q6H, #60 TAB Prov:ANAHI GRAVES [facility]-, ONC 02/28/17 Ondansetron (ZOFRAN ODT) 8 Mg Tab.rapdis, 8 MG PO Q8H, #30 TAB 3 Refills Prov:ANAHI GRAVESP-, ONC 02/18/17 Oxycodone Hcl (OXYCODONE HCL) 5 Mg Capsule, 5 MG PO Q4-6H for PAIN, #120 CAPSULE Prov:ANAHI GRAVES [facility]-, ONC 02/18/17 Zolpidem Tartrate (AMBIEN) 10 Mg Tablet, 1 TAB PO QHS, #30 TAB 2 Refills Prov:ANAHI GRAVES [facility], ONC 02/18/17 Hydrocodone Bit/Acetaminophen (NORCO 5-325 TABLET) 1 Each Tablet, 1 EACH PO Q4H Y for PAIN, #30 TAB Prov:ZULEYKA WARREN MD 02/11/17 Reported Medications Sennosides/Docusate Sodium (SENNA LAXATIVE TABLET) 1 Each Tablet, 1 EACH PO 02/07/17 Denosumab (XGEVA) 120 Mg/1.7 Ml Vial, 120 MG SUBQ for breast CA, VIAL 06/01/15 Reviewed Nurses Notes: Yes Old Medical Records Reviewed: Yes Hx Smoking: Yes (12 YRS 1/2 PPD QUIT 2007) Smoking Status: Former Smoker Hx Substance Use Disorder: No Hx Alcohol Use: No Constitutional Vital Sign - Last 24 Hours 06/11/17 06/11/17 06/11/17 06/11/17 13:53 13:54 14:00 14:15 Temp 97.6 Pulse 116 116 112 Resp 24 B/P (MAP) 124/89 (101) 124/89 Pulse Ox 93 90 90 O2 Delivery Room Air 06/11/17 06/11/17 06/11/17 06/11/17 14:28 14:30 15:45 15:50 Pulse 105 103 B/P (MAP) 109/68 (82) 108/71 (83) Pulse Ox 89 88 87 06/11/17 16:00 B/P (MAP) 108/70 (83) Intake and Output 06/11/17 06/11/17 06/12/17 15:00 23:00 07:00 Intake Total 1000 ml Balance 1000 ml Physical Exam General Appearance: The patient is alert, has no immediate need for airway protection and no current signs of toxicity. Ears no Eyes: Pupils equal and round no injection. Respiratory: Chest is non tender, lungs are clear to auscultation. Cardiac: regular rate and rhythm [ ] Gastrointestinal: Abdomen is large distended firm liver is percussed and beginning 3-4 cm below the costal margin Musculoskeletal: Neck: Neck is supple and non tender. Extremities have full range of motion and are non tender. Skin: Skin is pale [ ] DIFFERENTIAL DIAGNOSIS: After history and physical exam differential diagnosis was considered for metastatic cancer liver disease progressiveness metastatic process Medical Decision Making Data Points Result Diagram: 06/11/17 1420 06/11/17 1420 Laboratory Hematology Test 06/11/17 14:20 Red Blood Count 3.33 M/uL (4.17-5.56) Mean Corpuscular Volume 88.8 fL (80.0-96.0) Mean Corpuscular Hemoglobin 28.7 pg (26.0-33.0) Mean Corpuscular Hemoglobin Concent 32.4 g/dL (32.0-36.0) Red Cell Distribution Width 21.0 % (11.5-14.5) Mean Platelet Volume 7.4 fL (7.2-11.1) Neutrophils (%) (Auto) % (39.4-72.5) Lymphocytes (%) (Auto) % (17.6-49.6) Monocytes (%) (Auto) % (4.1-12.4) Eosinophils (%) (Auto) % (0.4-6.7) Basophils (%) (Auto) % (0.3-1.4) Nucleated RBC Relative Count (auto) /100WBC Neutrophils # (Auto) K/uL (2.0-7.4) Lymphocytes # (Auto) K/uL (1.3-3.6) Monocytes # (Auto) K/uL (0.3-1.0) Eosinophils # (Auto) K/uL (0.0-0.5) Basophils # (Auto) K/uL (0.0-0.1) Nucleated RBC Absolute Count (auto) K/uL Neutrophils % (Manual) 55 % (39.4-72.5) Band Neutrophils % 19 % Lymphocytes % (Manual) 19 % (17.6-49.6) Atypical Lymphocytes % 1 % Monocytes % (Manual) 3 % (4.1-12.4) Eosinophils % (Manual) 0 % (0.4-6.7) Basophils % (Manual) 0 % (0.3-1.4) Metamyelocytes % 3 % Nucleated Red Blood Cells 1 Polychromasia 1+ Anisocytosis 2+ Peripheral Blood Smear Yes Y/N Prothrombin Time 16.3 seconds (12.0-14.4) Prothromb Time International Ratio 1.29 Activated Partial Thromboplast Time 31 seconds (23-35) Urine Color Kimmy Urine Clarity Slightly-cloudy Urine pH 5.0 pH (4.8-9.5) Urine Specific [place] 1.024 Urine Protein 30 mg/dL (NEGATIVE) Urine Glucose (UA) Negative mg/dL (NEGATIVE) Urine Ketones 20 mg/dL (NEGATIVE) Urine Blood Negative (NEGATIVE) Urine Nitrite Negative (NEGATIVE) Urine Bilirubin Small (NEGATIVE) Urine Urobilinogen 4.0 mg/dL (0.2-1.9) Urine Leukocyte Esterase Negative (NEGATIVE) Urine RBC 3 /HPF (0-2/HPF) Urine WBC 1 /HPF (0-5/HPF) Urine Squamous Epithelial Cells Many /LPF (</=FEW) Urine Transitional Epithelial Cells Few /LPF (NONE-FEW) Urine Amorphous Crystals Moderate /HPF Urine Bacteria Negative /HPF (NONE-FEW) Urine Hyaline Casts Few /LPF (NONE-FEW) Urine Granular Casts Many /LPF (NONE) Urine Mucus Few /HPF (NONE-FEW) Sodium Level 129 mmol/L (137-145) Potassium Level 3.9 mmol/L (3.5-5.0) Chloride Level 96 mmol/L (98-107) Carbon Dioxide Level 15 mmol/L (22-31) Blood Urea Nitrogen 11 mg/dl (7-18) Creatinine 0.60 mg/dl (0.52-1.04) Glomerular Filtration Rate Calc > 60.0 Random Glucose 96 mg/dl (75-110) Calcium Level 10.0 mg/dl (8.4-10.2) Total Bilirubin 1.8 mg/dl (0.2-1.3) Aspartate Amino Transf (AST/SGOT) 535 U/L (0-35) Alanine Aminotransferase (ALT/SGPT) 172 U/L (0-56) Alkaline Phosphatase 650 U/L (0-126) Total Protein 5.9 gm/dl (6.3-8.2) Albumin 2.6 g/dl (3.5-5.0) Lipase 26 U/L (23-300) Chemistry Test 06/11/17 14:20 White Blood Count 10.2 k/uL (4.5-11.0) Red Blood Count 3.33 M/uL (4.17-5.56) Hemoglobin 9.6 g/dL (12.0-16.0) Hematocrit 29.5 % (34.0-47.0) Mean Corpuscular Volume 88.8 fL (80.0-96.0) Mean Corpuscular Hemoglobin 28.7 pg (26.0-33.0) Mean Corpuscular Hemoglobin Concent 32.4 g/dL (32.0-36.0) Red Cell Distribution Width 21.0 % (11.5-14.5) Platelet Count 166 K/uL (150-450) Mean Platelet Volume 7.4 fL (7.2-11.1) Neutrophils (%) (Auto) % (39.4-72.5) Lymphocytes (%) (Auto) % (17.6-49.6) Monocytes (%) (Auto) % (4.1-12.4) Eosinophils (%) (Auto) % (0.4-6.7) Basophils (%) (Auto) % (0.3-1.4) Nucleated RBC Relative Count (auto) /100WBC Neutrophils # (Auto) K/uL (2.0-7.4) Lymphocytes # (Auto) K/uL (1.3-3.6) Monocytes # (Auto) K/uL (0.3-1.0) Eosinophils # (Auto) K/uL (0.0-0.5) Basophils # (Auto) K/uL (0.0-0.1) Nucleated RBC Absolute Count (auto) K/uL Neutrophils % (Manual) 55 % (39.4-72.5) Band Neutrophils % 19 % Lymphocytes % (Manual) 19 % (17.6-49.6) Atypical Lymphocytes % 1 % Monocytes % (Manual) 3 % (4.1-12.4) Eosinophils % (Manual) 0 % (0.4-6.7) Basophils % (Manual) 0 % (0.3-1.4) Metamyelocytes % 3 % Nucleated Red Blood Cells 1 Polychromasia 1+ Anisocytosis 2+ Peripheral Blood Smear Yes Y/N Prothrombin Time 16.3 seconds (12.0-14.4) Prothromb Time International Ratio 1.29 Activated Partial Thromboplast Time 31 seconds (23-35) Urine Color Kimmy Urine Clarity Slightly-cloudy Urine pH 5.0 pH (4.8-9.5) Urine Specific [place] 1.024 Urine Protein 30 mg/dL (NEGATIVE) Urine Glucose (UA) Negative mg/dL (NEGATIVE) Urine Ketones 20 mg/dL (NEGATIVE) Urine Blood Negative (NEGATIVE) Urine Nitrite Negative (NEGATIVE) Urine Bilirubin Small (NEGATIVE) Urine Urobilinogen 4.0 mg/dL (0.2-1.9) Urine Leukocyte Esterase Negative (NEGATIVE) Urine RBC 3 /HPF (0-2/HPF) Urine WBC 1 /HPF (0-5/HPF) Urine Squamous Epithelial Cells Many /LPF (</=FEW) Urine Transitional Epithelial Cells Few /LPF (NONE-FEW) Urine Amorphous Crystals Moderate /HPF Urine Bacteria Negative /HPF (NONE-FEW) Urine Hyaline Casts Few /LPF (NONE-FEW) Urine Granular Casts Many /LPF (NONE) Urine Mucus Few /HPF (NONE-FEW) Glomerular Filtration Rate Calc > 60.0 Calcium Level 10.0 mg/dl (8.4-10.2) Total Bilirubin 1.8 mg/dl (0.2-1.3) Aspartate Amino Transf (AST/SGOT) 535 U/L (0-35) Alanine Aminotransferase (ALT/SGPT) 172 U/L (0-56) Alkaline Phosphatase 650 U/L (0-126) Total Protein 5.9 gm/dl (6.3-8.2) Albumin 2.6 g/dl (3.5-5.0) Lipase 26 U/L (23-300) Coagulation Test 06/11/17 14:20 Prothrombin Time 16.3 seconds Prothromb Time International Ratio 1.29 Activated Partial Thromboplast Time 31 seconds Urinalysis Test 06/11/17 14:20 Urine Color Kimmy Urine Clarity Slightly-cloudy Urine pH 5.0 pH (4.8-9.5) Urine Specific [place] 1.024 Urine Protein 30 mg/dL (NEGATIVE) Urine Glucose (UA) Negative mg/dL (NEGATIVE) Urine Ketones 20 mg/dL (NEGATIVE) Urine Blood Negative (NEGATIVE) Urine Nitrite Negative (NEGATIVE) Urine Bilirubin Small (NEGATIVE) Urine Urobilinogen 4.0 mg/dL (0.2-1.9) Urine Leukocyte Esterase Negative (NEGATIVE) Urine RBC 3 /HPF (0-2/HPF) Urine WBC 1 /HPF (0-5/HPF) Urine Squamous Epithelial Cells Many /LPF (</=FEW) Urine Transitional Epithelial Cells Few /LPF (NONE-FEW) Urine Amorphous Crystals Moderate /HPF Urine Bacteria Negative /HPF (NONE-FEW) Urine Hyaline Casts Few /LPF (NONE-FEW) Urine Granular Casts Many /LPF (NONE) Urine Mucus Few /HPF (NONE-FEW) ED Course/Re-evaluation ED Course ED clinical course medical decision making 6-year-old female history metastatic cancer comes emergency Department today with worsening pain and CT scan does confirm extensive worsening of her metastatic process including liver bone peritoneum patient be admitted today for pain management and spoke to oncology Dr. Sands will evaluate for return to therapeutic regimen Decision to Disposition Date: Jun 11, 2017 Decision to Disposition Time: 16:31 Depart Departure Latest Vital Signs Vital Signs Date Time Temp Pulse Resp B/P (MAP) Pulse Ox O2 Delivery O2 Flow Rate FiO2 06/11/17 16:00 108/70 (83) 06/11/17 15:50 103 87 06/11/17 13:54 97.6 24 Room Air Impression: Primary Impression: Liver metastasis Condition: Improved Disposition: Admitted from ER BALAJI GONZALEZ MD Jun 11, 2017 16:31
[2017-06-11] MEDS ORDERED: IBUP-56 PO (16:58)
[2017-06-11 17:17] VITALS: BP 112/65
[2017-06-11] MEDS ORDERED: ONDA8TAB94 PO (17:36)
[2017-06-11] MEDS ORDERED: NS(*) 0.9% 1000 ML BAG 1,000 ML IV PRN (17:47)
[2017-06-11] MEDS ORDERED: HYDROmorphone PCA 6 MG/30 ML IV PRN (17:50)
[2017-06-11] MEDS ORDERED: PROMETHAZINE 25 MG/ML 1 ML AMP IVP PRN (17:50)
[2017-06-11] MEDS ORDERED: ZOLPIDEM TARTRATE 10 MG TAB PO PRN (17:55)
[2017-06-11] MEDS ORDERED: NALOXONE HCL 0.4 MG/ML VIAL IVP PRN (18:05)
--- NOTE | 2017-06-11 18:14 | History & Physical ---
History of Present Illness Chief Complaint Abdominal pain History of Present Illness 42yo female with PMHx significant for metastatic breast cancer. She has been receiving treatment through [facility] clinical trials. She reports increasing abdominal distension, pain, constipation over the past several weeks. She has been on a regimen of OxyContin and OxyIR for pain control as well as Compazine and Zofran for nausea. She was evaluated in the ER earlier today and found to have rapidly progressive metastatic involvement of her liver as well as evidence of increasing metastatic involvement of the bases of her lungs. She was recommended for admission. History Problems: (1) Breast cancer, stage 4 Status: Chronic Home Meds Active Scripts Oxycodone Hcl (OXYCONTIN) 10 Mg Tab.er.12h, 10 MG PO BID, #90 TAB Take 10mg or 20 mg (1-2 tablets) every 12 hours for pain management Prov:ANAHI GRAVES [employer], ONC 05/29/17 Prochlorperazine Maleate (Compazine) 10 Mg Tablet, 10 MG PO Q6H, #60 TAB Prov:ANAHI GRAVES [facility] [employer], ONC 02/28/17 Oxycodone Hcl (OXYCODONE HCL) 5 Mg Capsule, 5 MG PO Q4-6H for PAIN, #120 CAPSULE Prov:ANAHI GRAVES [facility], ONC 02/18/17 Zolpidem Tartrate (AMBIEN) 10 Mg Tablet, 1 TAB PO QHS, #30 TAB 2 Refills Prov:ANAHI GRAVES [facility] [employer], ONC 02/18/17 Hydrocodone Bit/Acetaminophen (NORCO 5-325 TABLET) 1 Each Tablet, 1 EACH PO Q4H Y for PAIN, #30 TAB Prov:ZULEYKA WARREN MD 02/11/17 Reported Medications Ondansetron (ZOFRAN ODT) 8 Mg Tab.rapdis, 8 MG PO PRN 06/11/17 Ibuprofen (IBUPROFEN) 200 Mg Tablet, 1 TAB PO Q6H, TAB 06/11/17 Sennosides/Docusate Sodium (SENNA LAXATIVE TABLET) 1 Each Tablet, 1 EACH PO DAILY 02/07/17 Denosumab (XGEVA) 120 Mg/1.7 Ml Vial, 120 MG SUBQ Q4WK for breast CA, VIAL 06/01/15 Discontinued Scripts Ondansetron (ZOFRAN ODT) 8 Mg Tab.rapdis, 8 MG PO Q8H, #30 TAB 3 Refills Prov:ANAHI GRAVES [facility], ONC 02/18/17 Allergies: Coded Allergies: codeine (Verified Adverse Reaction, Intermediate, NAUSEA/VOMITING, ) Patient History: FH: gastric cancer Maternal aunt FH: ovarian cancer aunt Hx Smoking: Yes (12 YRS 1/2 PPD QUIT 2007) Smoking Status: Former Smoker When Quit Tobacco?: NINE YEARS AGO Caffeine Intake: Tea Caffeine/Cups Per Day: 2 CPD Hx Alcohol Use: Yes (in past/none for past 9 months) Hx Substance Use Disorder: No Review of Systems Gastrointestinal: Nausea, Vomiting, Constipation Exam Vital Signs Vital Signs Date Time Temp Pulse Resp B/P (MAP) Pulse Ox O2 Delivery O2 Flow Rate FiO2 06/11/17 17:17 98.2 102 12 112/65 (81) 89 Room Air General Appearance: Alert, Awake Neuro: No Gross deficits Eyes: PERRLA ENT: Oropharynx Clear Neck: No Masses Cardiovascular: Regular Rate and Rhythm, No Edema, No JVD Respiratory: Other (diminished breath sounds at left base/no rales or wheezes) Chest: No Tenderness, Other (port right upper chest - no abnormalities noted) GI: Other (Liver edge is palpable well below right costal margin and extends nearly into pelvis as well into left upper and mid-left side/liver is tender to palpation/BS present) Extremities: Warm, Perfused Integumentary: Skin Intact without Lesion / Mass Psych: Alert & Oriented X3 Medical Decision Making Data Points Result Diagram: 06/11/17 1420 06/11/17 1420 Item Value Date Time Urine Mucus Few /HPF 06/11/17 1420 Urine Granular Casts Many /LPF H 06/11/17 1420 Urine Hyaline Casts Few /LPF 06/11/17 1420 Urine Bacteria Negative /HPF 06/11/17 1420 Urine Amorphous Crystals Moderate /HPF 06/11/17 1420 Urine Transitional Epithelial Cells Few /LPF 06/11/17 1420 Urine Squamous Epithelial Cells Many /LPF H 06/11/17 1420 Urine WBC 1 /HPF 06/11/17 1420 Urine RBC 3 /HPF 06/11/17 1420 Urine Leukocyte Esterase Negative 06/11/17 1420 Urine Urobilinogen 4.0 mg/dL H 06/11/17 1420 Urine Bilirubin Small 06/11/17 1420 Urine Nitrite Negative 06/11/17 1420 Urine Blood Negative 06/11/17 1420 Urine Ketones 20 mg/dL H 06/11/17 1420 Urine Glucose (UA) Negative mg/dL 06/11/17 1420 Urine Protein 30 mg/dL 06/11/17 1420 Urine Specific [place] 1.024 06/11/17 1420 Urine pH 5.0 pH 06/11/17 1420 Urine Clarity Slightly-cloudy 06/11/17 1420 Urine Color Kimmy 06/11/17 1420 Prothromb Time International Ratio 1.29 06/11/17 1420 Activated Partial Thromboplast Time 31 seconds 06/11/17 1420 Prothrombin Time 16.3 seconds H 06/11/17 1420 Lipase 26 U/L 06/11/17 1420 Albumin 2.6 g/dl L 06/11/17 1420 Total Protein 5.9 gm/dl L 06/11/17 1420 Alkaline Phosphatase 650 U/L H 06/11/17 1420 Alanine Aminotransferase (ALT/SGPT) 172 U/L H 06/11/17 1420 Aspartate Amino Transf (AST/SGOT) 535 U/L H 06/11/17 1420 Total Bilirubin 1.8 mg/dl H 06/11/17 1420 Calcium Level 10.0 mg/dl 06/11/17 1420 EKG / Imaging Imaging PATIENT NAME: Kirti Olivares : 1975 MR: [id number] V: [id number] EXAM DATE: ORDERING PHYSICIAN: BALAJI GONZALEZ TECHNOLOGIST: Location: [facility] Patient: Kirti Olivares : 1975 Visit/Account:[id number] Date of Sevice: 06/11/2017 EXAMINATION: CT abdomen and pelvis with IV contrast HISTORY: History of breast cancer. Evaluate for metastatic disease. TECHNIQUE: Axial CT images of the abdomen and pelvis were obtained with IV contrast, with coronal and sagittal 2D reconstructed images. One of the following dose optimization techniques was utilized in the performance of this exam: Automated exposure control; adjustment of the mA and/ or kV according to the patient's size; or use of an iterative reconstruction technique. Specific details can be referenced in the facility's radiology CT exam operational policy. Contrast: 75 mL of IV [id number]. COMPARISON: 08/22/2016. FINDINGS: Liver: There are innumerable heterogeneous hypoenhancing masses present throughout the entire liver compatible with extensive metastatic disease. There is associated hepatomegaly. The liver measures 28.5 cm in length, extending into the upper pelvis, previously measuring 17.6 cm. Masses are essentially confluent involving all segments of the liver, and discrete individual masses are poorly defined, but with the largest discrete mass measuring approximately 4.3 x 3.5 cm in segment VII (image 55). On the prior exam of 2016 there was only a single poorly defined 2.4 cm mass in the right lobe. The hepatic veins and portal veins are attenuated but patent. Gallbladder and bile ducts: Negative. Spleen: Negative. Pancreas: Negative. Adrenal glands: Negative. Kidneys: Negative. No hydronephrosis or urinary calculi. Bowel and peritoneum: The small bowel and colon are normal in caliber. No bowel obstruction. No localized bowel wall thickening. Small volume of ascites in the pelvis with trace perihepatic fluid. No free intraperitoneal air. Pelvic structures: The uterus is anteverted in position, with an IUD in place. There is a 2 cm peripherally enhancing cyst in the right adnexa, likely a physiologic corpus luteum. Lymph node assessment: There are multiple enlarged lymph nodes in the abdomen and pelvis, compatible with metastatic disease. Enlarged lymph nodes are present in the periportal region, retroperitoneum, left iliac chain, and left inguinal region. Largest discrete lymph nodes include a 3.0 x 1.9 cm periportal lymph node superior to the main portal vein (image 57), a 2.7 x 1.9 cm retroperitoneal lymph node along the upper right para-aortic level (image 67), a 2.3 x 1.9 cm lymph node mass along the left external iliac chain (image 125), a 2.7 x 2.0 cm node along the lower left external iliac chain (image 127), and a 2.8 x 1.9 cm left inguinal node (image 154). Vessels: Negative. Musculoskeletal: Extensive sclerotic lesions throughout the visualized bones have progressed, compatible with metastatic disease. There is involvement of every visualized vertebral level as well as multiple lesions in the bony pelvis. The known lesions in the left sacrum appear grossly stable but there are numerous new lesions throughout the visualized bones. Body wall: Negative. Lung bases: There is a new small layering left pleural effusion, with associated areas of nodular enhancement along the pleural surfaces at the left lung base, compatible with malignancy. There are multiple irregular nodules throughout the visualized lower lungs, compatible with metastatic disease. The largest lesion measures approximately 2.6 x 1.9 cm in the left lung base (image 11). IMPRESSION: 1. Extensive metastatic disease in the abdomen and pelvis has progressed since the prior CT of 2017. 2. The liver is enlarged and essentially replaced by innumerable poorly defined metastatic lesions. The largest discrete mass measures approximately 4.3 cm, but masses are essentially confluent an individual masses ar not well-defined. 3. Adenopathy throughout the abdomen and pelvis compatible with metastatic disease, including enlarged periportal, retroperitoneal, left iliac, and left inguinal lymph nodes.4. Visualized metastatic disease in the lower chest. There is a small layering left pleural effusion with areas of nodular enhancement along the pleural surfaces as well as numerous small irregular nodules in the visualized lower lungs. 5. Progressive osseous metastatic disease with extensive ill-defined sclerotic lesions throughout the visualized bones. 6. Small volume of ascites. Findings were discussed with BALAJI GONZALEZ at 06/11/2017 3:32 PM. Report Dictated By: Vishnu Flores MD at 06/11/2017 3:17 PM Report E-Signed By: Vishnu Flores MD at 06/11/2017 3:36 PM WSN:[id number] PATIENT NAME: Kirti Olivares : 1975 MR: [id number] V: [id number] EXAM DATE: ORDERING PHYSICIAN: BALAJI GONZALEZ TECHNOLOGIST: Location: [facility] Patient: Kirti Oilvares : 1975 Visit/Account:[id number] Date of Sevice: 06/11/2017 Exam type: CHEST PA AND LAT History: Pain, history of breast cancer Comparison: None. Findings: Patchy airspace disease at the lung bases greater on the left is noted with a small left effusion. There appears to be a 2 cm left upper lobe nodule as well as a left perihilar nodule and I cannot exclude metastatic disease in this patient with known breast cancer. Heart size is normal. Right-sided chemotherapy catheter has its tip in SVC. The osseous structures junction a scoliosis. Patient reportedly has known bone metastasis not well appreciated by plain film radiography. IMPRESSION: 1. Patchy consolidation at the lung bases greater on the left with a small left effusion concerning for pneumonia. 2. Left upper lobe and left perihilar nodule identified potentially metastatic in this patient with known breast cancer. Recommend a CT scan of the chest for further evaluation. Report Dictated By: Anatoly Borrego MD at 06/11/2017 3:05 PM Report E-Signed By: Anatoly Borrego MD at 06/11/2017 3:10 PM WSN:[id number] Assessment and Plan Problems: (1) Intractable pain Status: Acute Assessment & Plan: Due to extensive metastatic disease. Will admit for pain/ symptom control. 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 Start bowel regimen. She has been evaluated by oncology and palliative chemotherapy is also planned. (2) Breast cancer, stage 4 Status: Chronic Assessment & Plan: Extensive/progressive metastatic disease. Patient and her seem to understand the situation very well. Oncology has evaluated her and plans on initiating palliative chemotherapy very soon. Venous Thromboembolism Antithrombotics Is Pt On Any Antithrombotics?: No Prophylaxis Tx Contraindicated Pharmacological Contraindicati: Liver Disease (elevated INR) Exam Sepsis Risk: No Definite Risk SHERIE ARGUELLES MD Jun 11, 2017 18:14
[2017-06-11] MEDS ORDERED: MAGNESIUM HYDROXIDE* 30ML UDCP PO PRN (18:15)
[2017-06-11] MEDS ORDERED: BISACODYL 10 MG SUPP PR PRN (18:15)
[2017-06-11] MEDS: POLYETHYLENE GLYCOL 17 GM PKT PO SCH (19:55)
[2017-06-11] MEDS: DOCUSATE SOD/SENNA 1 EACH TAB PO SCH (20:07)
[2017-06-11 20:23] VITALS: BP 108/64
[2017-06-12 07:27] VITALS: BP 113/67
[2017-06-12] MEDS: POLYETHYLENE GLYCOL 17 GM PKT PO SCH (09:41)
[2017-06-12] MEDS: DOCUSATE SOD/SENNA 1 EACH TAB PO SCH (09:41)
--- NOTE | 2017-06-12 09:41 | Hospitalist Depart ---
Discharge Summary Reason for Hosp/Final Diag: (1) Intractable pain Status: Acute Hospital Course & Plan: She was placed on a [employer] Dilaudid overnight. She will discharge on her regular pain medications and follow up with the Cancer Center immediately after discharge. (2) Breast cancer, stage 4 Status: Chronic Hospital Course & Plan: She will follow up in the Cancer Center as above. Departure Latest Vital Signs Vital Signs 06/12/17 07:27 Temp 97.9 Pulse 106 Resp 22 B/P (MAP) 113/67 (82) Pulse Ox 92 O2 Delivery Nasal Cannula O2 Flow Rate 0.5 Weight (Pounds): 131 Result Diagram: 06/11/17 1420 06/11/17 1420 Condition: Improved Discharge: Home, Self Care Discharge Instructions Home Meds Active Scripts Oxycodone Hcl (OXYCONTIN) 10 Mg Tab.er.12h, 10 MG PO BID, #90 TAB Take 10mg or 20 mg (1-2 tablets) every 12 hours for pain management Prov:ANAHI GRAVES CERTIFIED CAREGIVER-BC, ONC 05/29/17 Prochlorperazine Maleate (Compazine) 10 Mg Tablet, 10 MG PO Q6H, #60 TAB Prov:ANAHI GRAVES CERTIFIED CAREGIVER-BC, ONC 02/28/17 Oxycodone Hcl (OXYCODONE HCL) 5 Mg Capsule, 5 MG PO Q4-6H for PAIN, #120 CAPSULE Prov:ANAHI GRAVES [facility]-BC, ONC 02/18/17 Zolpidem Tartrate (AMBIEN) 10 Mg Tablet, 1 TAB PO QHS, #30 TAB 2 Refills Prov:ANAHI GRAVES [facility]-BC, ONC 02/18/17 Hydrocodone Bit/Acetaminophen (NORCO 5-325 TABLET) 1 Each Tablet, 1 EACH PO Q4H Y for PAIN, #30 TAB Prov:ZULEYKA WARREN MD 02/11/17 Reported Medications Ondansetron (ZOFRAN ODT) 8 Mg Tab.rapdis, 8 MG PO PRN 06/11/17 Ibuprofen (IBUPROFEN) 200 Mg Tablet, 1 TAB PO Q6H, TAB 06/11/17 Sennosides/Docusate Sodium (SENNA LAXATIVE TABLET) 1 Each Tablet, 1 EACH PO DAILY 02/07/17 Denosumab (XGEVA) 120 Mg/1.7 Ml Vial, 120 MG SUBQ Q4WK for breast CA, VIAL 06/01/15 Discontinued Scripts Ondansetron (ZOFRAN ODT) 8 Mg Tab.rapdis, 8 MG PO Q8H, #30 TAB 3 Refills Prov:ANAHI GRAVES CERTIFIED CAREGIVER-BC, ONC 02/18/17 Diet: Regular Activity: As Tolerated Venous Thromboembolism Antithrombotics Is Pt On Any Antithrombotics?: No JUAN CARLOS TREVIÑO DO Jun 12, 2017 09:41
[2017-06-12 13:09] VITALS: Ht 167.6 cm; Wt 59.4 kg
[2017-06-14] MEDS ORDERED: INFLUENZA VIRUS VAC 0.5 ML SYR IM ONLY ONE (17:50)
== END 2017-06-12 11:08 | disposition home or self-care (01) | DRG 948 ==
LOC: ER 14:01 → MED 16:55
PROVIDERS: ADMIT Internal Medicine; ATTEND Internal Medicine
DX: G89.3 Neoplasm related pain (acute) (chronic) (principal); C78.7 Secondary malignant neoplasm of liver and intrahepatic bile duct; C78.02 Secondary malignant neoplasm of left lung; C78.01 Secondary malignant neoplasm of right lung; C79.51 Secondary malignant neoplasm of bone; C78.6 Secondary malignant neoplasm of retroperitoneum and peritoneum; C50.919 Malignant neoplasm of unspecified site of unspecified female breast; Z88.8 Allergy status to other drugs, medicaments and biological substances; Z87.891 Personal history of nicotine dependence; Z92.21 Personal history of antineoplastic chemotherapy
CPT/HCPCS: 71046; 74177; 81001; 82040; 82247; 82310; 82374; 82435; 82565; 82947; 83690; 84075; 84132; 84155; 84295; 84450; 84460; 84520; 85025; 85610; 85730; 96361; 96374; 99285; J1170; J2405; J2550; J7030; Q9967

== ENCOUNTER 2017-06-13 20:50 | Inpatient (IN) | payer BC, OTHER ==
[~2017-06-13] VITALS: Ht 167.6 cm; Wt 59.4 kg
[~2017-06-13 20:50] MED LIST changes: +IBUP-56 PO
--- NOTE | 2017-06-13 21:05 | ER Report ---
History and Physical Time Seen By MD: 21:05 Hx. of Stated Complaint: PATIENT STATES THAT SHE IS HAVING TROUBLE BREATHING FOR TWO WEEKS DUE TO ENLARGED LIVER; TONIGHT IT HAS GOTTEN WORSE AND SHE IS HAVING TROUBLE SLEEPING WELL; PATIENT JUST STARTED A NEW CHEMO MEDICATION YESTERDAY; HPI/ROS CHIEF COMPLAINT: difficulty breathing HISTORY OF PRESENT ILLNESS: This is a 42 year old female. She has been having some shortness of breath off and on for several months now, worse over the last 2 weeks, and worsened tonight. She feels short of breath with exertion and with lying flat. Feels okay now while sitting up. Was at the cancer center today and had a liter of normal saline. She had here new regimen of chemotherapy started today as well. She has widely metastatic breast cancer, with significant liver enlargement. She had low oxygen saturation at the [facility] today. Here, the saturation is normal on room air. She has been on an study for her cancer treatment at a [facility], which has now been stopped because of her worsening condition. She has not fevers or chills with her shortness of breath. Has some chronic cough which has not worsened. Poor appetite, but no nausea or vomiting. Normal bowels, sometimes constipation with treatments, but some loose stool today. No problems with urination. Allergies: Coded Allergies: codeine (Verified Adverse Reaction, Intermediate, NAUSEA/VOMITING, ) Home Meds Active Scripts Oxycodone Hcl (OXYCONTIN) 10 Mg Tab.er.12h, 10 MG PO BID, #90 TAB Take 10mg or 20 mg (1-2 tablets) every 12 hours for pain management Prov:ANAHI GRAVESP-BC, ONC 05/29/17 Prochlorperazine Maleate (Compazine) 10 Mg Tablet, 10 MG PO Q6H, #60 TAB Prov:ANAHI GRAVESP-BC, ONC 02/28/17 Oxycodone Hcl (OXYCODONE HCL) 5 Mg Capsule, 5 MG PO Q4-6H for PAIN, #120 CAPSULE Prov:ANAHI GRAVESP-BC, ONC 02/18/17 Zolpidem Tartrate (AMBIEN) 10 Mg Tablet, 1 TAB PO QHS, #30 TAB 2 Refills Prov:ANAHI GRAVESP-BC, ONC 02/18/17 Hydrocodone Bit/Acetaminophen (NORCO 5-325 TABLET) 1 Each Tablet, 1 EACH PO Q4H Y for PAIN, #30 TAB Prov:ZULEYKA WARREN MD 02/11/17 Reported Medications Ondansetron (ZOFRAN ODT) 8 Mg Tab.rapdis, 8 MG PO PRN 06/11/17 Ibuprofen (IBUPROFEN) 200 Mg Tablet, 1 TAB PO Q6H, TAB 06/11/17 Sennosides/Docusate Sodium (SENNA LAXATIVE TABLET) 1 Each Tablet, 1 EACH PO DAILY 02/07/17 Denosumab (XGEVA) 120 Mg/1.7 Ml Vial, 120 MG SUBQ Q4WK for breast CA, VIAL 06/01/15 Discontinued Scripts Ondansetron (ZOFRAN ODT) 8 Mg Tab.rapdis, 8 MG PO Q8H, #30 TAB 3 Refills Prov:ANAHI GRAVES [employer]PERATIONS ENGINEER-BC, ONC 02/18/17 Past Medical/Surgical History Breast cancer with metastasis to multiple areas, osteoporosis, scoliosis, history of Reviewed Nurses Notes: Yes Hx Smoking: Yes (12 YRS 1/2 PPD QUIT 2007) Smoking Status: Former Smoker Hx Substance Use Disorder: No Hx Alcohol Use: Yes (in past/none for past 9 months) Constitutional Vital Sign - Last 24 Hours 06/13/17 06/13/17 06/13/17 06/13/17 20:54 20:55 21:20 21:40 Temp 97.5 Pulse 120 118 Resp 19 B/P (MAP) 129/80 (96) 129/80 110/74 (86) Pulse Ox 94 93 O2 Delivery Room Air 06/13/17 06/13/17 06/13/17 06/13/17 21:50 22:00 22:15 22:20 Pulse 122 B/P (MAP) 108/71 (83) 110/76 (87) Pulse Ox 90 O2 Flow Rate 1.0 06/13/17 06/13/17 06/13/17 06/13/17 22:20 22:36 22:45 23:15 Pulse 120 121 B/P (MAP) 109/74 (86) 105/73 (84) Pulse Ox 88 89 06/13/17 06/13/17 06/13/17 06/14/17 23:20 23:50 23:55 00:00 Pulse 121 119 117 B/P (MAP) 106/65 (79) Pulse Ox 89 94 94 06/14/17 06/14/17 06/14/17 06/14/17 00:15 00:25 00:30 00:45 Pulse 116 B/P (MAP) 103/67 (79) 102/67 (79) 101/64 (76) Pulse Ox 94 06/14/17 06/14/17 06/14/17 06/14/17 01:00 01:15 01:30 01:35 Pulse 118 118 B/P (MAP) 105/67 (80) 104/67 (79) 108/70 (83) Pulse Ox 91 91 Physical Exam General Appearance: The patient is alert. No acute distress. Eyes: Pupils are equal, round. No pallor, injection or icterus. ENT: Mucous membranes are moist. Normal oral mucosa. Posterior oropharynx is normal. Respiratory: Lungs are clear to auscultation. There are no retractions or accessory muscle use. Talking in full sentences without any distress. Cardiovascular: Regular rate and rhythm. No murmurs, gallops or rubs. Normal capillary refill. Gastrointestinal: Abdomen is soft, with firmness over enlarged liver which has discomfort with palpation. Nondistended. Normal active bowel sounds. No costovertebral angle tenderness with percussion. Neurological: Alert and oriented x3. Cranial nerves II through XII show no acute deficits on my exam. Skin: Warm and dry. Musculoskeletal: Extremities are nontender. Full range of motion. No tenderness in palpation of the cervical, thoracic and lumbar spine. DIFFERENTIAL DIAGNOSIS: After history and physical exam, differential diagnosis was considered for shortness of breath in a patient with widely metastatic cancer and will evaluate for pulmonary embolism, infectious process, anemia, effusions. Medical Decision Making Data Points Result Diagram: 06/13/17213106/13/172131 Laboratory Hematology Test 06/13/17 21:32 06/13/17 22:30 Red Blood Count 3.10 M/uL (4.17-5.56) Mean Corpuscular Volume 90.6 fL (80.0-96.0) Mean Corpuscular Hemoglobin 28.8 pg (26.0-33.0) Mean Corpuscular Hemoglobin Concent 31.8 g/dL (32.0-36.0) Red Cell Distribution Width 21.9 % (11.5-14.5) Mean Platelet Volume 7.6 fL (7.2-11.1) Neutrophils (%) (Auto) % (39.4-72.5) Lymphocytes (%) (Auto) % (17.6-49.6) Monocytes (%) (Auto) % (4.1-12.4) Eosinophils (%) (Auto) % (0.4-6.7) Basophils (%) (Auto) % (0.3-1.4) Nucleated RBC Relative Count (auto) /100WBC Neutrophils # (Auto) K/uL (2.0-7.4) Lymphocytes # (Auto) K/uL (1.3-3.6) Monocytes # (Auto) K/uL (0.3-1.0) Eosinophils # (Auto) K/uL (0.0-0.5) Basophils # (Auto) K/uL (0.0-0.1) Nucleated RBC Absolute Count (auto) K/uL Neutrophils % (Manual) 84 % (39.4-72.5) Lymphocytes % (Manual) 14 % (17.6-49.6) Monocytes % (Manual) 0 % (4.1-12.4) Eosinophils % (Manual) 0 % (0.4-6.7) Basophils % (Manual) 0 % (0.3-1.4) Metamyelocytes % 1 % Myelocytes % 1 % Anisocytosis 2+ Prothrombin Time 16.5 seconds (12.0-14.4) Prothromb Time International Ratio 1.31 Activated Partial Thromboplast Time 29 seconds (23-35) D-Dimer Quantitative (PE/DVT) 17.41 ug/ml (0-0.50) Sodium Level 131 mmol/L (137-145) Potassium Level 4.0 mmol/L (3.5-5.0) Chloride Level 101 mmol/L (98-107) Carbon Dioxide Level 10 mmol/L (22-31) Blood Urea Nitrogen 10 mg/dl (7-18) Creatinine 0.50 mg/dl (0.52-1.04) Glomerular Filtration Rate Calc > 60.0 Random Glucose 75 mg/dl (75-110) Calcium Level 9.6 mg/dl (8.4-10.2) Total Bilirubin 1.9 mg/dl (0.2-1.3) Aspartate Amino Transf (AST/SGOT) 498 U/L (0-35) Alanine Aminotransferase (ALT/SGPT) 178 U/L (0-56) Alkaline Phosphatase 598 U/L (0-126) Total Protein 5.0 gm/dl (6.3-8.2) Albumin 2.2 g/dl (3.5-5.0) Urine Color Yellow Urine Clarity Clear Urine pH 5.0 pH (4.8-9.5) Urine Specific [place] 1.017 Urine Protein Negative mg/dL (NEGATIVE) Urine Glucose (UA) Negative mg/dL (NEGATIVE) Urine Ketones 20 mg/dL (NEGATIVE) Urine Blood Negative (NEGATIVE) Urine Nitrite Negative (NEGATIVE) Urine Bilirubin Negative (NEGATIVE) Urine Urobilinogen Negative mg/dL (0.2-1.9) Urine Leukocyte Esterase Negative (NEGATIVE) Urine RBC <1 /HPF (0-2/HPF) Urine WBC <1 /HPF (0-5/HPF) Urine Squamous Epithelial Cells Moderate /LPF (</=FEW) Urine Bacteria Negative /HPF (NONE-FEW) Urine Mucus None /HPF (NONE-FEW) Chemistry Test 06/13/17 21:32 06/13/17 22:30 White Blood Count 9.7 k/uL (4.5-11.0) Red Blood Count 3.10 M/uL (4.17-5.56) Hemoglobin 8.9 g/dL (12.0-16.0) Hematocrit 28.0 % (34.0-47.0) Mean Corpuscular Volume 90.6 fL (80.0-96.0) Mean Corpuscular Hemoglobin 28.8 pg (26.0-33.0) Mean Corpuscular Hemoglobin Concent 31.8 g/dL (32.0-36.0) Red Cell Distribution Width 21.9 % (11.5-14.5) Platelet Count 116 K/uL (150-450) Mean Platelet Volume 7.6 fL (7.2-11.1) Neutrophils (%) (Auto) % (39.4-72.5) Lymphocytes (%) (Auto) % (17.6-49.6) Monocytes (%) (Auto) % (4.1-12.4) Eosinophils (%) (Auto) % (0.4-6.7) Basophils (%) (Auto) % (0.3-1.4) Nucleated RBC Relative Count (auto) /100WBC Neutrophils # (Auto) K/uL (2.0-7.4) Lymphocytes # (Auto) K/uL (1.3-3.6) Monocytes # (Auto) K/uL (0.3-1.0) Eosinophils # (Auto) K/uL (0.0-0.5) Basophils # (Auto) K/uL (0.0-0.1) Nucleated RBC Absolute Count (auto) K/uL Neutrophils % (Manual) 84 % (39.4-72.5) Lymphocytes % (Manual) 14 % (17.6-49.6) Monocytes % (Manual) 0 % (4.1-12.4) Eosinophils % (Manual) 0 % (0.4-6.7) Basophils % (Manual) 0 % (0.3-1.4) Metamyelocytes % 1 % Myelocytes % 1 % Anisocytosis 2+ Prothrombin Time 16.5 seconds (12.0-14.4) Prothromb Time International Ratio 1.31 Activated Partial Thromboplast Time 29 seconds (23-35) D-Dimer Quantitative (PE/DVT) 17.41 ug/ml (0-0.50) Glomerular Filtration Rate Calc > 60.0 Calcium Level 9.6 mg/dl (8.4-10.2) Total Bilirubin 1.9 mg/dl (0.2-1.3) Aspartate Amino Transf (AST/SGOT) 498 U/L (0-35) Alanine Aminotransferase (ALT/SGPT) 178 U/L (0-56) Alkaline Phosphatase 598 U/L (0-126) Total Protein 5.0 gm/dl (6.3-8.2) Albumin 2.2 g/dl (3.5-5.0) Urine Color Yellow Urine Clarity Clear Urine pH 5.0 pH (4.8-9.5) Urine Specific [place] 1.017 Urine Protein Negative mg/dL (NEGATIVE) Urine Glucose (UA) Negative mg/dL (NEGATIVE) Urine Ketones 20 mg/dL (NEGATIVE) Urine Blood Negative (NEGATIVE) Urine Nitrite Negative (NEGATIVE) Urine Bilirubin Negative (NEGATIVE) Urine Urobilinogen Negative mg/dL (0.2-1.9) Urine Leukocyte Esterase Negative (NEGATIVE) Urine RBC <1 /HPF (0-2/HPF) Urine WBC <1 /HPF (0-5/HPF) Urine Squamous Epithelial Cells Moderate /LPF (</=FEW) Urine Bacteria Negative /HPF (NONE-FEW) Urine Mucus None /HPF (NONE-FEW) Coagulation Test 06/13/17 21:32 Prothrombin Time 16.5 seconds Prothromb Time International Ratio 1.31 Activated Partial Thromboplast Time 29 seconds D-Dimer Quantitative (PE/DVT) 17.41 ug/ml Urinalysis Test 06/13/17 22:30 Urine Color Yellow Urine Clarity Clear Urine pH 5.0 pH (4.8-9.5) Urine Specific [place] 1.017 Urine Protein Negative mg/dL (NEGATIVE) Urine Glucose (UA) Negative mg/dL (NEGATIVE) Urine Ketones 20 mg/dL (NEGATIVE) Urine Blood Negative (NEGATIVE) Urine Nitrite Negative (NEGATIVE) Urine Bilirubin Negative (NEGATIVE) Urine Urobilinogen Negative mg/dL (0.2-1.9) Urine Leukocyte Esterase Negative (NEGATIVE) Urine RBC <1 /HPF (0-2/HPF) Urine WBC <1 /HPF (0-5/HPF) Urine Squamous Epithelial Cells Moderate /LPF (</=FEW) Urine Bacteria Negative /HPF (NONE-FEW) Urine Mucus None /HPF (NONE-FEW) EKG/Imaging Imaging EXAMINATION: Chest 2 Views HISTORY: Shortness of breath. COMPARISON: 06/11/2017. FINDINGS: There are scattered pulmonary nodules bilaterally compatible with known metastatic disease. Slight progression of left basilar airspace disease with a small left pleural effusion. No pneumothorax. No new or progressive consolidation on the right. Stable cardiomediastinal silhouette, with normal heart size. Right IJ central venous port, with tip overlying the mid SVC. No acute osseous findings. Thoracolumbar scoliosis. IMPRESSION: 1. Left basilar airspace disease has mildly progressed. This may represent atelectasis or infiltrate. Small left pleural effusion. 2. Multiple pulmonary nodules again noted, compatible with known metastatic disease. Report Dictated By: Vishnu Flores MD at 06/13/2017 10:35 PM EXAMINATION: CTA of the chest with IV contrast CT abdomen/pelvis with IV contrast HISTORY: Shortness of breath. History of breast cancer with metastatic disease. TECHNIQUE: Pulmonary embolus protocol - Thin-slice axial imaging of the chest was performed during maximal pulmonary arterial opacification with IV contrast. 3D slab MIPs and 2D reconstructions in the coronal and sagittal planes were performed to aid pulmonary embolus detection. [employer] images have been stored on PACS. Axial CT images of the abdomen and pelvis were then obtained with IV contrast, with coronal and sagittal 2D reconstructed images. One of the following dose optimization techniques was utilized in the performance of this exam: Automated exposure control; adjustment of the mA and/ or kV according to the patient's size; or use of an iterative reconstruction technique. Specific details can be referenced in the facility's radiology CT exam operational policy. Contrast: 75 mL of IV Isovue-370. COMPARISON: CT abdomen/pelvis 06/11/2017. FINDINGS: Chest: Image quality is partially degraded by respiratory motion artifact. Pulmonary arteries: Subsegmental pulmonary artery branches in the lower lungs are suboptimally visualized due to motion artifact. The pulmonary arteries are otherwise well opacified, without suspicious filling defect. Heart, aorta, and great vessels: Normal caliber thoracic aorta, without aneurysm or dissection. Normal heart size. No pericardial effusion. Right IJ central venous port, with tip in the SVC. Lungs and pleura: There is a moderate layering left pleural effusion, slightly increased in volume from the prior abdominal CT. New small layering right pleural effusion. No pneumothorax. There are multiple pulmonary nodules bilaterally compatible with metastatic disease. Largest discrete nodules include a 1.8 cm nodule in the left upper lobe posteriorly (series 5, image 88), a 1.5 cm nodule in the left lower lobe ( image 109), a 1.7 cm nodule in the lingula (image 134), a 1.5 cm nodule in the right middle lobe (image 141), and masslike opacity in the left lower lobe posteriorly measuring 2.6 cm (image 172). Multiple additional smaller pulmonary nodules are also present. The central airways are patent. No pneumothorax. There is atelectasis in the posterior lung bases. Superimposed infiltrate in the left lower lobe is not excluded. There is enhancing nodular soft tissue along the left pleural space compatible with metastatic disease. Mediastinum and wendy: There are multiple enlarged left hilar and mediastinal lymph nodes compatible with metastatic disease. Largest nodes measure 1.6 cm in the precarinal space, 1.2 cm in the subcarinal region, 1.4 cm at the AP window, and 1.5 cm at the left hilum. Chest wall: Negative. Bones: There are multiple ill-defined sclerotic lesions throughout the visualized bones, compatible with extensive metastatic disease. There is a nonacute fracture of the posterior left eighth rib with callus formation. Abdomen/pelvis: Liver: Extensive metastatic disease throughout the liver as previously described. The liver is diffusely enlarged, measuring up to 29 cm in length. There are innumerable poorly defined masses involving all segments of the liver. The hepatic veins and portal veins remain patent. Gallbladder and bile ducts: Negative. Spleen: Negative. Pancreas: Negative. Adrenal glands: Negative. Kidneys: Negative. No hydronephrosis or urinary calculi. Bowel and peritoneum: The small bowel and colon are normal in caliber. No bowel obstruction. Stable small volume of ascites. No free intraperitoneal air. Pelvic structures: IUD present in the uterus. Stable 2 cm cystic focus n the right ovary, likely a corpus luteum.Lymph node assessment: Multiple enlarged lymph nodes in the abdomen and pelvis as described on the recent prior abdominal CT. Enlarged lymph nodes are present in the periportal region, retroperitoneum, left iliac chain, and left inguinal region. Vessels: Negative. Musculoskeletal: Extensive sclerotic lesions throughout the visualized bones as previously noted, compatible with metastatic disease. No new osseous findings in the abdomen or pelvis. Body wall: Negative. IMPRESSION: 1. No evidence of pulmonary embolism. 2. Moderate left and small right layering pleural effusions, increased from the recent prior abdominal CT. Adjacent atelectasis in the left lung base. Superimposed infiltrate not excluded. 3. Extensive metastatic disease throughout the chest, abdomen, and pelvis. There are numerous pulmonary nodules throughout both lungs with associated left hilar and mediastinal adenopathy. There are nodular metastatic lesions along the left pleural space. Metastatic disease throughout the abdomen and pelvis was described on the recent prior abdominal CT including extensive metastatic disease in the liver and multifocal adenopathy along with diffuse osseous metastatic disease. 4. No acute findings in the abdomen or pelvis. Report Dictated By: Vishnu Flores MD at 06/14/2017 12:41 AM ED Course/Re-evaluation Clinical Indication for ER IV: IV Access ED Course Initial labs showed anemia, that was slightly lower than where she was trending. She had a low carbon dioxide, with normal other electrolytes. She was not hyperventilating. She did have a low oxygen at 88% and was placed on some oxygen by nasal canula and did seem a little better. She is on OxyContin for pain control. We did provide a dose of Dilaudid 1mg IV for breakthrough upper abdominal pain. Chest x-ray as noted. D-dimer elevated. CTA chest, abdomen and pelvis was ordered with timing for PE, which was negative for PE and showed a moderated left pleural effusion which is larger since here last scan two days ago. I called and spoke with Dr. Dodd to discuss options. After our conversation and discussion with the patient, we elected to admit the patient for oxygen and discussion of thoracentesis with Dr. Horton later this morning. Decision to Disposition Date: Jun 14, 2017 Decision to Disposition Time: 01:30 Depart Departure Latest Vital Signs Vital Signs Date Time Temp Pulse Resp B/P (MAP) Pulse Ox O2 Delivery O2 Flow Rate FiO2 06/14/17 01:35 118 91 06/14/17 01:30 108/70 (83) 06/13/17 22:20 1.0 06/13/17 20:55 97.5 19 Room Air Impression: Primary Impression: Dyspnea Additional Impression: Pleural effusion Condition: Improved Disposition: Admitted from ER Problem Qualifiers Primary Impression: Dyspnea Dyspnea type: unspecified Qualified Codes: R06.00 - Dyspnea, unspecified SHWETA YOUNGER MD Jun 13, 2017 21:05
[2017-06-13] MEDS ORDERED: HYDROmorphone(ER ONLY) 1 MG/ML IVP ONE (21:25)
[2017-06-13 21:55] LABS: PLATELET COUNT, AUTOMATED 116 K/uL (150-450)
[2017-06-13 22:17] LABS: INR 1.31
--- NOTE | 2017-06-13 22:40 | RADIOLOGY IMAGING REPORT ---
FACILITY: [facility] PATIENT NAME: Kirti Olivares : 1975 MR: [id number] V: [id number] EXAM DATE: ORDERING PHYSICIAN: SHWETA YOUNGER TECHNOLOGIST: Location: [facility] [place] Patient: Kirti Olivares : 1975 Visit/Account:[id number] Date of Sevice: 06/13/2017 EXAMINATION: Chest 2 Views HISTORY: Shortness of breath. COMPARISON: 06/11/2017. FINDINGS: There are scattered pulmonary nodules bilaterally compatible with known metastatic disease. Slight pr ogression of left basilar airspace disease with a small left pleural effusion. No pneumothorax. No new or progressive consolidation on the right. Stable cardiomediastinal silhouette, with normal he art size. Right IJ central venous port, with tip overlying the mid SVC. No acute osseous findings. Thoracolumbar scoliosis. IMPRESSION: 1. Left basilar airspace disease has mildly progressed. This may represent atelectasis or infiltrate. Small left pleural effusion. 2. Multiple pulmonary nodules again noted, compatible with known metastatic disease. Report Dictated By: Vishnu Flores MD at 06/13/2017 10:35 PM Report E-Signed By: Vishnu Flores MD at 06/13/2017 10:37 PM WSN:[id number]
[2017-06-13] MEDS ORDERED: IOPAMIDOL 76% 75 ML INFUS BTL 75 ML ONE (23:14)
[2017-06-13] MEDS ORDERED: NS 0.9% 150 ML BAG 150 ML ONE (23:14)
--- NOTE | 2017-06-14 00:58 | RADIOLOGY IMAGING REPORT ---
[place] [facility] [place] NAME: Kirti Olivares : 1975 MR: [id number] V: [id number] EXAM DATE: ORDERING PHYSICIAN: SHWETA YOUNGER TECHNOLOGIST: Location: [facility] Patient: Kirti Olivares : 1975 Visit/Account:[id number] Date of Sevice: 06/13/2017 EXAMINATION: CTA of the chest with IV contrast CT abdomen/pelvis with IV contrast HISTORY: Shortness of breath. History of breast cancer with metastatic disease. TECHNIQUE: Pulmonary embolus protocol - Thin-slice axial imaging of the chest was performed during maximal pulmonary arterial opacification with IV contrast. 3D slab MIPs and 2D reconstructions in the coronal and sagittal planes were performed to aid pulmonary embolus detection. 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 Axial CT images of the abdomen and pelvis were then obtained with IV contrast, with coronal and sagit sampson 2D reconstructed images. One of the following dose optimization techniques was utilized in the performance of this exam: Autom ated exposure control; adjustment of the mA and/or kV according to the patient's size; or use of an i terative reconstruction technique. Specific details can be referenced in the facility's radiology C T exam operational policy. Contrast: 75 mL of IV Isovue-370. COMPARISON: CT abdomen/pelvis 06/11/2017. FINDINGS: Chest: Image quality is partially degraded by respiratory motion artifact. Pulmonary arteries: Subsegmental pulmonary artery branches in the lower lungs are suboptimally visua lized due to motion artifact. The pulmonary arteries are otherwise well opacified, without suspicious filling defect. Heart, aorta, and great vessels: Normal caliber thoracic aorta, without aneurysm or dissection. Norm al heart size. No pericardial effusion. Right IJ central venous port, with tip in the SVC. Lungs and pleura: There is a moderate layering left pleural effusion, slightly increased in volume f rom the prior abdominal CT. New small layering right pleural effusion. No pneumothorax. There are multiple pulmonary nodules bilaterally compatible with metastatic disease. Largest discrete nodules include a 1.8 cm nodule in the left upper lobe posteriorly (series 5, image 88), a 1.5 cm no dule in the left lower lobe (image 109), a 1.7 cm nodule in the lingula (image 134), a 1.5 cm nodule in the right middle lobe (image 141), and masslike opacity in the left lower lobe posteriorly measuri ng 2.6 cm (image 172). Multiple additional smaller pulmonary nodules are also present. The central ai rways are patent. No pneumothorax. There is atelectasis in the posterior lung bases. Superimposed inf iltrate in the left lower lobe is not excluded. There is enhancing nodular soft tissue along the left pleural space compatible with metastatic disease. Mediastinum and wendy: There are multiple enlarged left hilar and mediastinal lymph nodes compatible with metastatic disease. Largest nodes measure 1.6 cm in the precarinal space, 1.2 cm in the subcarin al region, 1.4 cm at the AP window, and 1.5 cm at the left hilum. Chest wall: Negative. Bones: There are multiple ill-defined sclerotic lesions throughout the visualized bones, compatible with extensive metastatic disease. There is a nonacute fracture of the posterior left eighth rib with callus formation. Abdomen/pelvis: Liver: Extensive metastatic disease throughout the liver as previously described. The liver is diffu sely enlarged, measuring up to 29 cm in length. There are innumerable poorly defined masses involving all segments of the liver. The hepatic veins and portal veins remain patent. Gallbladder and bile ducts: Negative. Spleen: Negative. Pancreas: Negative. Adrenal glands: Negative. Kidneys: Negative. No hydronephrosis or urinary calculi. Bowel and peritoneum: The small bowel and colon are normal in caliber. No bowel obstruction. Stable small volume of ascites. No free intraperitoneal air. Pelvic structures: IUD present in the uterus. Stable 2 cm cystic focus n the right ovary, likely a corpus luteum.Lymph node assessment: Multiple enlarged lymph nodes in the abdomen and pelvis as d escribed on the recent prior abdominal CT. Enlarged lymph nodes are present in the periportal region, retroperitoneum, left iliac chain, and left inguinal region. Vessels: Negative. Musculoskeletal: Extensive sclerotic lesions throughout the visualized bones as previously noted, c ompatible with metastatic disease. No new osseous findings in the abdomen or pelvis. Body wall: Negative. IMPRESSION: 1. No evidence of pulmonary embolism. 2. Moderate left and small right layering pleural effusions, increased from the recent prior abdomina l CT. Adjacent atelectasis in the left lung base. Superimposed infiltrate not excluded. 3. Extensive metastatic disease throughout the chest, abdomen, and pelvis. There are numerous pulmona ry nodules throughout both lungs with associated left hilar and mediastinal adenopathy. There are nod ular metastatic lesions along the left pleural space. Metastatic disease throughout the abdomen and p alec was described on the recent prior abdominal CT including extensive metastatic disease in the li cruz and multifocal adenopathy along with diffuse osseous metastatic disease. 4. No acute findings in the abdomen or pelvis. Report Dictated By: Vishnu Flores MD at 06/14/2017 12:41 AM Report E-Signed By: Vishnu Flores MD at 06/14/2017 12:54 AM WSN:[id number]
[2017-06-14 02:12] VITALS: BP 114/71
[2017-06-14] MEDS ORDERED: INFLUENZA VIRUS VAC 0.5 ML SYR IM ONLY ONE (02:40)
[2017-06-14] MEDS ORDERED: FLUSH 10 ML SYR IVP PRN (02:40)
--- NOTE | 2017-06-14 03:10 | History & Physical ---
History of Present Illness Chief Complaint Shortness of breath. History of Present Illness The patient is a 42 year old female who was diagnosed with breast cancer in 2012. She currently has widespread mets to her liver, lungs and bone. She has been receiving treatment through a clinical trial at the [facility]. She has been restarted on chemotherapy with gemcitabine and carboplatin. She was recently hospitalized 06/11 at [facility] with abdominal pain. CT showed rapidly progressive metastatic involvement of her liver and bases of her lungs. She was evaluated in ER prior to admission and found to have worsening L pleural effusion. WBC was normal. The patient was afebrile. She was recommended for admission. History Problems: (1) Breast cancer, stage 4 Status: Chronic Home Meds Active Scripts Oxycodone Hcl (OXYCONTIN) 10 Mg Tab.er.12h, 10 MG PO BID, #90 TAB Take 10mg or 20 mg (1-2 tablets) every 12 hours for pain management Prov:ANAHI GRAVES [facility], ONC 05/29/17 Prochlorperazine Maleate (Compazine) 10 Mg Tablet, 10 MG PO Q6H, #60 TAB Prov:ANAHI GRAVES [facility], ONC 02/28/17 Oxycodone Hcl (OXYCODONE HCL) 5 Mg Capsule, 5 MG PO Q4-6H for PAIN, #120 CAPSULE Prov:ANAHI GRAVESP-BC, ONC 02/18/17 Zolpidem Tartrate (AMBIEN) 10 Mg Tablet, 1 TAB PO QHS, #30 TAB 2 Refills Prov:ANAHI GRAVES [facility], ONC 02/18/17 Reported Medications Ondansetron (ZOFRAN ODT) 8 Mg Tab.rapdis, 8 MG PO PRN 06/11/17 Ibuprofen (IBUPROFEN) 200 Mg Tablet, 1 TAB PO Q6H, TAB 06/11/17 Sennosides/Docusate Sodium (SENNA LAXATIVE TABLET) 1 Each Tablet, 1 EACH PO DAILY 02/07/17 Denosumab (XGEVA) 120 Mg/1.7 Ml Vial, 120 MG SUBQ Q4WK for breast CA, VIAL 06/01/15 Discontinued Scripts Hydrocodone Bit/Acetaminophen (NORCO 5-325 TABLET) 1 Each Tablet, 1 EACH PO Q4H Y for PAIN, #30 TAB Prov:ZULEYKA WARREN MD 02/11/17 Ondansetron (ZOFRAN ODT) 8 Mg Tab.rapdis, 8 MG PO Q8H, #30 TAB 3 Refills Prov:ANAHI GRAVES [employer]EN[employer]IC[employer]-BC, ONC 02/18/17 Allergies: Coded Allergies: codeine (Verified Adverse Reaction, Intermediate, NAUSEA/VOMITING, ) Patient History: FH: gastric cancer Maternal aunt FH: ovarian cancer aunt Other Social/Family Hx The patient is and lives in [place]. Hx Smoking: Yes (12 YRS 03/25 PPD QUIT 2007) Smoking Status: Former Smoker Caffeine Intake: Tea Caffeine/Cups Per Day: 2 CPD Hx Alcohol Use: Yes (in past/none for past 9 months) Hx Substance Use Disorder: No Social Drug Use: Occasional History of IV Drug Use: No Review of Systems Constitutional: No Fever Respiratory: Shortness of Breath Gastrointestinal: Other (Abdominal fullness.) Musculoskeletal: Pain (Bone pain due to mets.) Exam Vital Signs Vital Signs Date Time Temp Pulse Resp B/P (MAP) Pulse Ox O2 Delivery O2 Flow Rate FiO2 06/14/17 02:22 87 06/14/17 02:12 97.8 120 24 114/71 (85) Nasal Cannula 1.0 General Appearance: Alert, Awake, Other (Mild increased work of breathing.) Eyes: PERRLA Cardiovascular: Other (Tachy, regular.) Respiratory: Other (Decreased BS L lung, bottom 1/2.) GI: Other (Abdomen with markedly enlarged palpable liver.) Extremities: Warm, Perfused, Other (No edema.) Psych: Alert & Oriented X3, Appropriate Mood & Affect Medical Decision Making Data Points Result Diagram: 06/13/17213106/13/172131 Item Value Date Time Total Bilirubin 1.9 mg/dl H 06/13/172131 Aspartate Amino Transf (AST/SGOT) 498 U/L H 06/13/172131 Alanine Aminotransferase (ALT/SGPT) 178 U/L H 06/13/172131 Alkaline Phosphatase 598 U/L H 06/13/172131 Total Protein 5.0 gm/dl L 06/13/172131 Albumin 2.2 g/dl L 06/13/172131 Prothrombin Time 16.5 seconds H 06/13/172131 Prothromb Time International Ratio 1.31 06/13/172131 Activated Partial Thromboplast Time 29 seconds 06/13/172131 D-Dimer Quantitative (PE/DVT) 17.41 ug/ml H 06/13/172131 EKG / Imaging Imaging FACILITY[facility] PATIENT NAME: Kirti Olivares : 1975 MR: [id number] V: [id number] EXAM DATE: ORDERING PHYSICIAN: SHWETA YOUNGER TECHNOLOGIST: Location: Patient: Kirti Olivares : 1975 Visit/Account:[id number] Date of Sevice: 06/13/2017 EXAMINATION: CTA of the chest with IV contrast CT abdomen/pelvis with IV contrast HISTORY: Shortness of breath. History of breast cancer with metastatic disease. TECHNIQUE: Pulmonary embolus protocol - Thin-slice axial imaging of the chest was performed during maximal pulmonary arterial opacification with IV contrast. 3D slab MIPs and 2D reconstructions in the coronal and sagittal planes were performed to aid pulmonary embolus detection. Service Captain images have been stored on PACS. Axial CT images of the abdomen and pelvis were then obtained with IV contrast, with coronal and sagittal 2D reconstructed images. One of the following dose optimization techniques was utilized in the performance of this exam: Automated exposure control; adjustment of the mA and/ or kV according to the patient's size; or use of an iterative reconstruction technique. Specific details can be referenced in the facility's radiology CT exam operational policy. Contrast: 75 mL of IV Isovue-370. COMPARISON: CT abdomen/pelvis 06/11/2017. FINDINGS: Chest: Image quality is partially degraded by respiratory motion artifact. Pulmonary arteries: Subsegmental pulmonary artery branches in the lower lungs are suboptimally visualized due to motion artifact. The pulmonary arteries are otherwise well opacified, without suspicious filling defect. Heart, aorta, and great vessels: Normal caliber thoracic aorta, without aneurysm or dissection. Normal heart size. No pericardial effusion. Right IJ central venous port, with tip in the SVC. Lungs and pleura: There is a moderate layering left pleural effusion, slightly increased in volume from the prior abdominal CT. New small layering right pleural effusion. No pneumothorax. There are multiple pulmonary nodules bilaterally compatible with metastatic disease. Largest discrete nodules include a 1.8 cm nodule in the left upper lobe posteriorly (series 5, image 88), a 1.5 cm nodule in the left lower lobe ( image 109), a 1.7 cm nodule in the lingula (image 134), a 1.5 cm nodule in the right middle lobe (image 141), and masslike opacity in the left lower lobe posteriorly measuring 2.6 cm (image 172). Multiple additional smaller pulmonary nodules are also present. The central airways are patent. No pneumothorax. There is atelectasis in the posterior lung bases. Superimposed infiltrate in the left lower lobe is not excluded. There is enhancing nodular soft tissue along the left pleural space compatible with metastatic disease. Mediastinum and wendy: There are multiple enlarged left hilar and mediastinal lymph nodes compatible with metastatic disease. Largest nodes measure 1.6 cm in the precarinal space, 1.2 cm in the subcarinal region, 1.4 cm at the AP window, and 1.5 cm at the left hilum. Chest wall: Negative. Bones: There are multiple ill-defined sclerotic lesions throughout the visualized bones, compatible with extensive metastatic disease. There is a nonacute fracture of the posterior left eighth rib with callus formation. Abdomen/pelvis: Liver: Extensive metastatic disease throughout the liver as previously described. The liver is diffusely enlarged, measuring up to 29 cm in length. There are innumerable poorly defined masses involving all segments of the liver. The hepatic veins and portal veins remain patent. Gallbladder and bile ducts: Negative. Spleen: Negative. Pancreas: Negative. Adrenal glands: Negative. Kidneys: Negative. No hydronephrosis or urinary calculi. Bowel and peritoneum: The small bowel and colon are normal in caliber. No bowel obstruction. Stable small volume of ascites. No free intraperitoneal air. Pelvic structures: IUD present in the uterus. Stable 2 cm cystic focus n the right ovary, likely a corpus luteum.Lymph node assessment: Multiple enlarged lymph nodes in the abdomen and pelvis as described on the recent prior abdominal CT. Enlarged lymph nodes are present in the periportal region, retroperitoneum, left iliac chain, and left inguinal region. Vessels: Negative. Musculoskeletal: Extensive sclerotic lesions throughout the visualized bones as previously noted, compatible with metastatic disease. No new osseous findings in the abdomen or pelvis. Body wall: Negative. IMPRESSION: 1. No evidence of pulmonary embolism. 2. Moderate left and small right layering pleural effusions, increased from the recent prior abdominal CT. Adjacent atelectasis in the left lung base. Superimposed infiltrate not excluded. 3. Extensive metastatic disease throughout the chest, abdomen, and pelvis. There are numerous pulmonary nodules throughout both lungs with associated left hilar and mediastinal adenopathy. There are nodular metastatic lesions along the left pleural space. Metastatic disease throughout the abdomen and pelvis was described on the recent prior abdominal CT including extensive metastatic disease in the liver and multifocal adenopathy along with diffuse osseous metastatic disease. 4. No acute findings in the abdomen or pelvis. Report Dictated By: Vishnu Flores MD at 06/14/2017 12:41 AM Report E-Signed By: Vishnu Flores MD at 06/14/2017 12:54 AM WSN:[id number] Assessment and Plan Problems: (1) Dyspnea Status: Acute Assessment & Plan: CT shows worsening of her L pleural effusion. She is more comfortable on oxygen. Will consult surgery in am. (2) Pleural effusion Status: Acute Assessment & Plan: Moderate, L sided. Will consult general surgery in am to consider thoracentesis. (3) Breast cancer, stage 4 Status: Chronic Assessment & Plan: Currently receiving chemotherapy as noted above. She has been noted to have rapidly progressive metastatic disease. Continue current pain medications. Time Spent on Plan of Care: < 30 min Copies to: SLAVA STOKES MD Venous Thromboembolism VTE Risk Physician Assess for VTE Risk: Yes Patient's VTE Risk: High VTE Diagnostic Test 2 Days Prior to Admit: Yes Antithrombotics Is Pt On Any Antithrombotics?: No Prophylaxis Tx Contraindicated Pharmacological Contraindicati: Low Platelet Count Exam Sepsis Risk: No Definite Risk Problem Qualifiers (1) Dyspnea: Dyspnea type: unspecified Qualified Codes: R06.00 - Dyspnea, unspecified (2) Breast cancer, stage 4: Laterality: unspecified laterality Qualified Codes: C50.919 - Malignant neoplasm of unspecified site of unspecified female breast IVÁN ARGUELLES MD Jun 14, 2017 03:10
[2017-06-14 06:17] LABS: PLATELET COUNT, AUTOMATED 92 K/uL (150-450)
[2017-06-14] MEDS: IBUPROFEN 200 MG TAB PO SCH ×3 (06:35→17:27)
[2017-06-14 06:50] VITALS: BP 103/66
--- NOTE | 2017-06-14 08:51 | Hospitalist Progress Note ---
Subjective Progress Notes Subjective Some SOB but overall better. Minimal cough without sputum. No hemoptosis. Some pressure with deep breath. No nausea of emesis. Physical Exam Vital Signs Date Time Temp Pulse Resp B/P (MAP) Pulse Ox O2 Delivery O2 Flow Rate FiO2 06/14/17 08:17 93 Nasal Cannula 1.0 06/14/17 06:50 98.1 115 16 103/66 (78) General Appearance: Alert, Awake, No Acute Distress, Afebrile Cardiovascular: Regular Rate and Rhythm Respiratory: Other (Ronchi both lower lobes with L>>R. Decreased BS at right base.) GI: Other (Moderate ascites. Liver is enlarged and approx.6-8 cm below RCM. Mildly tender RUQ.) Psych: Alert & Oriented X3, Appropriate Mood & Affect Result Diagram: 06/14/1755406/14/17 05 Assessment and Plan Problems: (1) Dyspnea Status: Acute Assessment & Plan: CT shows worsening of her L pleural effusion. She is more comfortable on oxygen. Will consult surgery this morning for possible thoracentesis. (2) Pleural effusion Status: Acute Assessment & Plan: Moderate, L sided. (3) Breast cancer, stage 4 Status: Chronic Assessment & Plan: Currently receiving chemotherapy as noted above. She has been noted to have rapidly progressive metastatic disease. Continue current pain medications. WBC's and platelets are lower this morning so will repeat tomorrow. Time Spent on Plan of Care: < 30 min Exam Sepsis Risk: No Definite Risk Problem Qualifiers (1) Dyspnea: Dyspnea type: unspecified Qualified Codes: R06.00 - Dyspnea, unspecified (2) Breast cancer, stage 4: Laterality: unspecified laterality Qualified Codes: C50.919 - Malignant neoplasm of unspecified site of unspecified female breast BALAJI CAMPBELL MD FACP Jun 14, 2017 08:51
[2017-06-14 10:34] VITALS: Ht 167.6 cm; Wt 59.4 kg
--- NOTE | 2017-06-14 11:34 | General Surgery Consultation ---
History of Present Illness Requesting Physician Dr. Cynthia Dodd Reason for Consult Malignant left pleural effusion Chief Complaint SOB History of Present Illness This 42 year old female patient of Dr. Gustavo Wong with triple negative metastatic breast cancer that has been progressive despite therapy was readmitted last evening with SOB. She is now two days from receiving chemotherapy. CT of CAP on admission show a bilateral pleural effusions left much larger than right. Patient reports she currently feels comfortable with more of a feeling of pressure in her abdomen and being bloated, though does experience dyspnea with activity. History Problems: (1) Breast cancer, stage 4 Status: Chronic (2) Dyspnea Status: Acute (3) Pleural effusion Status: Acute Home Meds Active Scripts Oxycodone Hcl (OXYCONTIN) 10 Mg Tab.er.12h, 10 MG PO BID, #90 TAB Take 10mg or 20 mg (1-2 tablets) every 12 hours for pain management Prov:ANAHI GRAVES [employer]-BC, ONC 05/29/17 Prochlorperazine Maleate (Compazine) 10 Mg Tablet, 10 MG PO Q6H, #60 TAB Prov:ANAHI GRAVES [facility], ONC 02/28/17 Oxycodone Hcl (OXYCODONE HCL) 5 Mg Capsule, 5 MG PO Q4-6H for PAIN, #120 CAPSULE Prov:ANAHI GRAVES [facility]-BC, ONC 02/18/17 Zolpidem Tartrate (AMBIEN) 10 Mg Tablet, 1 TAB PO QHS, #30 TAB 2 Refills Prov:ANAHI GRAVES [employer] MATE-BC, ONC 02/18/17 Reported Medications Ondansetron (ZOFRAN ODT) 8 Mg Tab.rapdis, 8 MG PO PRN 06/11/17 Ibuprofen (IBUPROFEN) 200 Mg Tablet, 1 TAB PO Q6H, TAB 06/11/17 Sennosides/Docusate Sodium (SENNA LAXATIVE TABLET) 1 Each Tablet, 1 EACH PO DAILY 02/07/17 Denosumab (XGEVA) 120 Mg/1.7 Ml Vial, 120 MG SUBQ Q4WK for breast CA, VIAL 06/01/15 Discontinued Scripts Hydrocodone Bit/Acetaminophen (NORCO 5-325 TABLET) 1 Each Tablet, 1 EACH PO Q4H Y for PAIN, #30 TAB Prov:ZULEYKA WARREN MD 02/11/17 Ondansetron (ZOFRAN ODT) 8 Mg Tab.rapdis, 8 MG PO Q8H, #30 TAB 3 Refills Prov:ANAHI GRAVES [facility]-BC, ONC 02/18/17 Allergies: Coded Allergies: codeine (Verified Adverse Reaction, Intermediate, NAUSEA/VOMITING, ) Family History: FH: gastric cancer Maternal aunt FH: ovarian cancer aunt Review of Systems Constitutional: No Fever, No Chills Neurological: No Syncope, No Confusion, No Weakness, No Dizziness, No Slurred Speech, No Other Cardiovascular: No Chest Pain, No Palpitations Respiratory: Shortness of Breath, Wheezing, No Cough, No Other Gastrointestinal: No Nausea, No Vomiting, No Diarrhea, No Dysphagia, Constipation, Early Satiety, No Hematemesis, No Hematochezia, No Melena, Abdominal Pain, No Other Genitourinary: No Dysuria Musculoskeletal: Pain Exam Vital Signs Vital Signs Date Time Temp Pulse Resp B/P (MAP) Pulse Ox O2 Delivery O2 Flow Rate FiO2 06/14/17 08:17 93 Nasal Cannula 1.0 06/14/17 06:50 98.1 115 16 103/66 (78) General Appearance: Alert, Awake, No Acute Distress, Afebrile Neuro: No Gross deficits ENT: Moist Mucous Membranes Respiratory: Other (decreased breath sounds in left base) GI: Other (distended with hepatomegaly and ascitic fluid wave) Extremities: Soft and Non Tender Integumentary: Skin Intact without Lesion / Mass Psych: Alert & Oriented X3, Appropriate Mood & Affect Medical Decision Making Data Points Result Diagram: 06/14/17 0555 06/14/17 0555 Assessment and Plan Problems: (1) Pleural effusion Status: Acute Assessment & Plan: Moderate, L sided. I have discussed in detail with Kirti and her sister the potential risks and benefits of thoracentesis versus a tube thoracostomy. I have put a telephone call into her oncologist Dr. Wong as she would appreciate his opinion. As there is no urgency to perform this at this time, I will recheck with her tomorrow am. Time Spent: > 30 min Venous Thromboembolism Antithrombotics Is Pt On Any Antithrombotics?: No EUNICE PEREZ MD Jun 14, 2017 11:34
[2017-06-14 12:13] VITALS: BP 113/74
[2017-06-14 15:33] VITALS: BP 105/67
[2017-06-14] MEDS: oxyCODONE HCL 5 MG CAP PO PRN ×2 (17:27→21:13)
[2017-06-14 18:59] VITALS: BP 107/64
[2017-06-14] MEDS: ZOLPIDEM TARTRATE 10 MG TAB PO SCH (21:13)
[2017-06-15] VITALS (9 sets, daily range): BP systolic 98–121; BP diastolic 60–76
[2017-06-15] MEDS: oxyCODONE HCL 5 MG CAP PO PRN ×3 (01:34→22:51)
[2017-06-15] MEDS: IBUPROFEN 200 MG TAB PO SCH ×4 (05:54→17:14)
[2017-06-15 06:07] LABS: PLATELET COUNT, AUTOMATED 71 K/uL (150-450)
--- NOTE | 2017-06-15 10:05 | General Surgery Progress Note ---
Subjective Progress Notes Subjective Feeling tired, but denies feeling SOB, still with feeling of abdominal pressure. Physical Exam Vital Signs Date Time Temp Pulse Resp B/P (MAP) Pulse Ox O2 Delivery O2 Flow Rate FiO2 06/15/17 07:47 88 Room Air 06/15/17 07:42 98.4 116 14 99/60 (73) 06/14/17 20:11 1.0 Intake and Output 06/16/17 07:00 Intake Total 240 ml Balance 240 ml Intake Oral 240 ml General Appearance: Alert, Awake, No Acute Distress, Afebrile Neuro: No Gross deficits Respiratory: No Respiratory Distress (Dull and decreased left base, no change from yesterday) GI: Other (remains distended, no significant tenderness) Result Diagram: 06/15/17 0532 06/15/17 0532 Assessment and Plan Problems: (1) Pleural effusion Status: Acute Assessment & Plan: 06/14/17; Moderate, L sided malignant pleural effusion. I have discussed in detail with Kirti and her sister the potential risks and benefits of thoracentesis versus a tube thoracostomy. I have put a telephone call into her oncologist Dr. Wong as she would appreciate his opinion. As there is no urgency to perform this at this time, I will recheck with her tomorrow am. 06/15/17: Less symptomatic this am. H&H and platelet count down further today. I again discussed with Kirti and her sister her options. At this time she is comfortable and recognize that thoracentesis should be reserved in her case for symptomatic relief. Recheck CXR and CBC in am. Time Spent: < 30 min Exam Sepsis Risk: No Definite Risk EUNICE PEREZ MD Jun 15, 2017 10:05
--- NOTE | 2017-06-15 10:07 | Hospitalist Progress Note ---
Subjective Progress Notes Subjective She reports abdominal discomfort/pain relatively unchanged. Dyspnea with low levels of exertion. Hgb/Hct have dropped further. Physical Exam Vital Signs Date Time Temp Pulse Resp B/P (MAP) Pulse Ox O2 Delivery O2 Flow Rate FiO2 06/15/17 07:47 88 Room Air 06/15/17 07:42 98.4 116 14 99/60 (73) 06/14/17 20:11 1.0 Intake and Output 06/16/17 07:00 Intake Total 240 ml Balance 240 ml Intake Oral 240 ml General Appearance: Alert, Awake Cardiovascular: Regular Rate and Rhythm Respiratory: Other (diminished breath sounds at bases/no rales/wheezes) Chest: No Tenderness, Other (port site looks good) GI: Other (liver palpable well below costal margin) Extremities: Warm, Perfused Psych: Alert & Oriented X3 Result Diagram: 06/15/17 0532 06/15/17 0532 Assessment and Plan Problems: (1) Dyspnea Status: Acute Assessment & Plan: CT shows worsening of her L pleural effusion. Most likely this is a malignant effusion. She is more comfortable on oxygen. Dr. Horton ( surgery) has seen/evaluated her. They are discussing possible thoracentesis vs. chest tube placement/pleurodesis. (2) Pleural effusion Status: Acute Assessment & Plan: Moderate left sided and smaller on right. Most likely malignant effusions related to her widely metastatic breast cancer. Possible thoracentesis vs.chest tube placement. (3) Breast cancer, stage 4 Status: Chronic Assessment & Plan: Currently receiving chemotherapy (carboplatin/gemcitabine). She has been noted to have rapidly progressive metastatic disease. Hgb/Hct down significantly. She is rather symptomatic with the effusion and is probably compounded by the anemia. Will transfuse 2 units PRBC today. Exam Sepsis Risk: No Definite Risk Problem Qualifiers (1) Dyspnea: Dyspnea type: unspecified Qualified Codes: R06.00 - Dyspnea, unspecified (2) Breast cancer, stage 4: Laterality: unspecified laterality Qualified Codes: C50.919 - Malignant neoplasm of unspecified site of unspecified female breast SHERIE ARGUELLES MD Jun 15, 2017 10:07
[2017-06-15] MEDS ORDERED: BISACODYL 10 MG SUPP PR ONE (11:00)
[2017-06-15] MEDS ORDERED: NS(*) 0.9% 500 ML BAG 500 ML ONE (12:05)
[2017-06-15] MEDS: POLYETHYLENE GLYCOL 17 GM PKT PO SCH (12:12)
[2017-06-15] MEDS: ZOLPIDEM TARTRATE 10 MG TAB PO SCH (21:21)
[2017-06-16] MEDS: IBUPROFEN 200 MG TAB PO SCH ×2 (00:20→06:23)
[2017-06-16] MEDS: oxyCODONE HCL 5 MG CAP PO PRN (03:07)
[2017-06-16 03:08] VITALS: BP 112/67
[2017-06-16] MEDS ORDERED: ONDANSETRON 4 MG/2 ML VIAL IVP PRN (06:20)
[2017-06-16 06:26] LABS: PLATELET COUNT, AUTOMATED 47 K/uL (150-450)
--- NOTE | 2017-06-16 06:56 | RADIOLOGY IMAGING REPORT ---
[place] [facility] [place] NAME: Kirti Olivares : 1975 MR: [id number] V: [id number] EXAM DATE: ORDERING PHYSICIAN: EUNICE PEREZ TECHNOLOGIST: Location: [facility] [place] Patient: Kirti Olivares : 1975 Visit/Account:[id number] Date of Sevice: 06/16/2017 CHEST DECUBS ONLY HISTORY: Reassess left pleural effusion. COMPARISON: Concurrent two-view chest x-ray and studies dating to 07/11/2016. TECHNIQUE: Left decubitus view was performed. FINDINGS: Tubes/lines/hardware: Right port terminates mid superior vena cava. Pulmonary: There is a free-flowing moderate size left pleural effusion. There is a small right free-f lowing pleural effusion. Left basilar opacity is unchanged. No pneumothorax. Cardiomediastinal: Cardiac and mediastinal silhouettes are within normal limits. Bones/soft tissues: No acute osseous abnormality. The visible abdomen is normal. IMPRESSION: 1. Moderate size left pleural effusion. 2. Small right pleural effusion. 3. No change in aeration of the lungs. Report Dictated By: Gracy Shah at 06/16/2017 6:49 AM Report E-Signed By: Gracy Shah at 06/16/2017 6:51 AM WSN:[id number]
--- NOTE | 2017-06-16 07:00 | RADIOLOGY IMAGING REPORT ---
FACILITY: [facility] PATIENT NAME: Kirti Olivares : 1975 MR: [id number] V: [id number] EXAM DATE: ORDERING PHYSICIAN: EUNICE PEREZ TECHNOLOGIST: Location: [facility] Patient: Kirti Olivares : 1975 Visit/Account:[id number] Date of Sevice: 06/16/2017 CHEST PA AND LAT HISTORY: Reassess left pleural effusion. COMPARISON: Concurrent left lateral decubitus view. Prior images 06/13/2017 and studies dating to 07/11. TECHNIQUE: PA and lateral views of the chest. FINDINGS: Tubes/lines/hardware: Right port terminates in the mid superior vena cava. Pulmonary: Moderate left pleural effusion is unchanged. Small right pleural effusion has slightly inc reased in size from prior chest x-ray. There is worsening left basilar opacity. Right basilar opacity is unchanged. No pneumothorax. Pulmonary nodules are better seen on CT. Cardiomediastinal: Cardiac silhouette is within normal limits. There is mediastinal adenopathy, uncha nged. Bones/soft tissues: No acute osseous abnormality. Stable S-shaped scoliosis. The visible abdomen is n ormal. IMPRESSION: 1. Stable left pleural effusion. 2. Small right pleural effusion has mildly increased in size. 3. Worsening left basilar opacity may be worsening atelectasis. 4. Pulmonary nodules and hilar adenopathy, compatible with metastatic disease. Report Dictated By: Gracy Shah at 06/16/2017 6:51 AM Report E-Signed By: Gracy Shah at 06/16/2017 6:57 AM WSN:[id number]
[2017-06-16 07:43] VITALS: BP 106/65
--- NOTE | 2017-06-16 08:04 | General Surgery Progress Note ---
Subjective Progress Notes Subjective no complaints, breathing easy Physical Exam Vital Signs Date Time Temp Pulse Resp B/P (MAP) Pulse Ox O2 Delivery O2 Flow Rate FiO2 06/16/17 07:43 97.9 114 18 106/65 (79) 93 Nasal Cannula 1.0 General Appearance: Alert, Awake, No Acute Distress Result Diagram: 06/16/1751706/16/17517 Assessment and Plan Problems: (1) Pleural effusion Status: Acute Assessment & Plan: 06/14/17; Moderate, L sided malignant pleural effusion. I have discussed in detail with Kirti and her sister the potential risks and benefits of thoracentesis versus a tube thoracostomy. I have put a telephone call into her oncologist Dr. Wong as she would appreciate his opinion. As there is no urgency to perform this at this time, I will recheck with her tomorrow am. 06/15/17: Less symptomatic this am. H&H and platelet count down further today. I again discussed with Kirti and her sister her options. At this time she is comfortable and recognize that thoracentesis should be reserved in her case for symptomatic relief. Recheck CXR and CBC in am. 06/16/17 effusions unchanged, stable. will not do thoracentesis at this point Exam Sepsis Risk: No Definite Risk ZULEYKA WARREN MD Jun 16, 2017 08:04
[2017-06-16] MEDS: POLYETHYLENE GLYCOL 17 GM PKT PO SCH (09:27)
[2017-06-16] MEDS ORDERED: ONDA8TAB94 PO (09:55)
--- NOTE | 2017-06-16 10:01 | Hospitalist Depart ---
Discharge Summary Reason for Hosp/Final Diag: (1) Pleural effusion Status: Acute Hospital Course & Plan: A CT scan did show a left sided pleural effusion, which is likely malignant. It has remained relatively stable, and the current plan is that she will defer thoracentesis unless she becomes more symptomatic. (2) Breast cancer, stage 4 Status: Chronic Hospital Course & Plan: She is followed through the cancer center. (3) Anemia due to chemotherapy Hospital Course & Plan: She did receive 2 units of red cells during this admission. Departure Latest Vital Signs Vital Signs 06/16/17 07:43 Temp 97.9 Pulse 114 Resp 18 B/P (MAP) 106/65 (79) Pulse Ox 93 O2 Delivery Nasal Cannula O2 Flow Rate 1.0 Weight (Pounds): 131 Result Diagram: 06/16/1751706/16/17517 Condition: Improved Discharge: Home, Self Care Discharge Instructions Home Meds Active Scripts Ondansetron (ZOFRAN ODT) 8 Mg Tab.rapdis, 8 MG PO Q4H Y for NAUSEA, #30 TAB Prov:JUAN CARLOS TREVIÑO DO 06/16/17 Oxycodone Hcl (OXYCONTIN) 10 Mg Tab.er.12h, 10 MG PO BID, #90 TAB Take 10mg or 20 mg (1-2 tablets) every 12 hours for pain management Prov:ANAHI GRAVES SOCIAL MEDIA CAMPAIGN MANAGER-BC, ONC 05/29/17 Prochlorperazine Maleate (Compazine) 10 Mg Tablet, 10 MG PO Q6H, #60 TAB Prov:ANAHI GRAVES SOCIAL MEDIA CAMPAIGN MANAGER-BC, ONC 02/28/17 Oxycodone Hcl (OXYCODONE HCL) 5 Mg Capsule, 5 MG PO Q4-6H for PAIN, #120 CAPSULE Prov:ANAHI GRAVES SOCIAL MEDIA CAMPAIGN MANAGER-BC, ONC 02/18/17 Zolpidem Tartrate (AMBIEN) 10 Mg Tablet, 1 TAB PO QHS, #30 TAB 2 Refills Prov:ANAHI GRAVES SOCIAL MEDIA CAMPAIGN MANAGER-BC, ONC 02/18/17 Reported Medications Ibuprofen (IBUPROFEN) 200 Mg Tablet, 1 TAB PO Q6H, TAB 06/11/17 Sennosides/Docusate Sodium (SENNA LAXATIVE TABLET) 1 Each Tablet, 1 EACH PO DAILY 02/07/17 Denosumab (XGEVA) 120 Mg/1.7 Ml Vial, 120 MG SUBQ Q4WK for breast CA, VIAL 06/01/15 Discontinued Scripts Hydrocodone Bit/Acetaminophen (NORCO 5-325 TABLET) 1 Each Tablet, 1 EACH PO Q4H Y for PAIN, #30 TAB Prov:ZULEYKA WARREN MD 02/11/17 Ondansetron (ZOFRAN ODT) 8 Mg Tab.rapdis, 8 MG PO Q8H, #30 TAB 3 Refills Prov:ANAHI GRAVES SOCIAL MEDIA CAMPAIGN MANAGER-BC, ONC 02/18/17 Diet: Regular Activity: As Tolerated Copies to: SLAVA STOKES MD Venous Thromboembolism Antithrombotics Is Pt On Any Antithrombotics?: No Problem Qualifiers (1) Breast cancer, stage 4: Laterality: unspecified laterality Qualified Codes: C50.919 - Malignant neoplasm of unspecified site of unspecified female breast JUAN CARLOS TREVIÑO DO Jun 16, 2017 10:01
== END 2017-06-16 11:15 | disposition home or self-care (01) | DRG 598 ==
LOC: ER 21:00 → MED 06-14 01:35
PROVIDERS: ADMIT Internal Medicine; ATTEND Internal Medicine
PROC: 30233N1 Transfusion of Nonautologous Red Blood Cells into Peripheral Vein, Percutaneous Approach (ICD-10-PCS; principal; 2017-06-15)
DX: C50.919 Malignant neoplasm of unspecified site of unspecified female breast (principal); J91.0 Malignant pleural effusion; C79.51 Secondary malignant neoplasm of bone; C78.7 Secondary malignant neoplasm of liver and intrahepatic bile duct; C78.02 Secondary malignant neoplasm of left lung; C78.01 Secondary malignant neoplasm of right lung; D64.81 Anemia due to antineoplastic chemotherapy; M81.0 Age-related osteoporosis without current pathological fracture; M41.9 Scoliosis, unspecified; Z88.8 Allergy status to other drugs, medicaments and biological substances; Z87.891 Personal history of nicotine dependence; Z92.21 Personal history of antineoplastic chemotherapy
CPT/HCPCS: 36415; 71045; 71046; 71275; 74174; 81001; 82040; 82247; 82310; 82374; 82435; 82565; 82947; 84075; 84132; 84155; 84295; 84450; 84460; 84520; 85025; 85379; 85610; 85730; 86850; 86900; 86901; 86920; 96374; 99285; J1170; J2405; J3490; J7040; P9016; Q9967

== ENCOUNTER → 2017-06-27 | Outpatient (CLI) | payer BC, OTHER ==
[2017-06-14 10:34] VITALS: BMI 21.1
[~2017-06-27] MED LIST changes: +DENOSUMAB 120 MG/1.7 ML VIAL SUBQ ONE; +LORA-1455 PO
[2017-06-27 11:41] VITALS: BP 112/71
== END ==
LOC: SPU 08:13
PROVIDERS: ATTEND Internal Medicine Medical Oncology
DX: C50.919 Malignant neoplasm of unspecified site of unspecified female breast (principal)
CPT/HCPCS: 96372; J0897

== ENCOUNTER 2017-07-08 12:26 | Inpatient (IN) | payer BC, OTHER ==
[~2017-07-08] VITALS: Ht 167.6 cm; Wt 59.0 kg
[~2017-07-08 12:26] MED LIST changes: +CALC-515 PO; -DENOSUMAB 120 MG/1.7 ML VIAL SUBQ ONE; +OMEP-218 PO; +POTA20TA10 PO
--- NOTE | 2017-07-08 12:57 | ER Report ---
History and Physical Time Seen By MD: 12:57 Hx. of Stated Complaint: patient being tx for breast ca, states today she has been confused and just acting different than normal, patient appears jaundices, reports this happens frequently HPI/ROS This is a very pleasant and unfortunate 42-year-old female with known end-stage metastatic breast cancer. Her brought her to the emergency department today for weakness and mild altered mental status. She is currently undergoing a chemotherapy regimen with last chemotherapy on . She is afebrile. She is able to take by mouth. No new or focal pain. No trauma. Noted immediately is that she is jaundice, but her says that she looks like that as a side effect from the chemotherapy. She has no other complaints. Remainder of the 14 system rev: Yes Allergies: Coded Allergies: codeine (Verified Adverse Reaction, Intermediate, NAUSEA/VOMITING, 07/08/17 ) Home Meds Active Scripts Potassium Chloride (Potassium Chloride) 20 Meq Tablet.er, 20 MEQ PO DAILY, #30 PACK 1 Refill Prov:SARAH JENSEN MD 07/07/17 Lorazepam (ATIVAN) 0.5 Mg Tablet, 0.5 MG PO Q4-6H, #30 TAB 0 Refills Prov:SARAH JENSEN MD 06/23/17 Oxycodone Hcl (OXYCONTIN) 10 Mg Tab.er.12h, 20-30 MG PO BID, #120 TAB Take 10mg or 20 mg (1-2 tablets) every 12 hours for pain management Prov:SARAH JENSEN MD 06/23/17 Prochlorperazine Maleate (Compazine) 10 Mg Tablet, 10 MG PO Q6H, #60 TAB Prov:SARAH JENSEN MD 06/23/17 Oxycodone Hcl (OXYCODONE HCL) 5 Mg Capsule, 5 MG PO Q4-6H for PAIN, #120 CAPSULE Prov:SARAH JENSEN MD 06/23/17 Ondansetron (ZOFRAN ODT) 8 Mg Tab.rapdis, 8 MG PO Q4H Y for NAUSEA, #30 TAB Prov:JUAN CARLOS TREVIÑO DO 06/16/17 Zolpidem Tartrate (AMBIEN) 10 Mg Tablet, 1 TAB PO QHS, #30 TAB 2 Refills Prov:ANAHI [employer], ONC 02/18/17 Reported Medications Calcium Carbonate (TUMS) 200 Mg Tab.chew, 200 MG PO Y for HEARTBURN, TAB.CHEW 07/02/17 Omeprazole Magnesium (PRILOSEC OTC) 20 Mg Tablet.dr, 1 TAB PO QDAY, TAB 07/02/17 Ibuprofen (IBUPROFEN) 200 Mg Tablet, 1 TAB PO Q6H, TAB 06/11/17 Sennosides/Docusate Sodium (SENNA LAXATIVE TABLET) 1 Each Tablet, 1 EACH PO DAILY 02/07/17 Denosumab (XGEVA) 120 Mg/1.7 Ml Vial, 120 MG SUBQ Q4WK for breast CA, VIAL 06/01/15 Reviewed Nurses Notes: Yes Old Medical Records Reviewed: Yes Hx Smoking: Yes (12 YRS 03/25 PPD QUIT 2007) Smoking Status: Former Smoker Hx Substance Use Disorder: No Hx Alcohol Use: Yes (in past/none for past 9 months) Physical Exam General Appearance: The patient is alert, has no immediate need for airway protection. SHe is jaundice and appears fatigued, but in no distress. Eyes: Pupils equal and round no injection. Jaundice Respiratory: Chest is non tender, lungs are clear to auscultation. Cardiac: tachycardic and regular rhythm Gastrointestinal: Abdomen is firm without fluid wave. No TTP. Extremities have full range of motion and are non tender. Skin: jaundice. DIFFERENTIAL DIAGNOSIS: After history and physical exam differential diagnosis was considered for brain mets, liver failure, encephalopathy, end of life Medical Decision Making Data Points Result Diagram: 07/08/17 1255 07/08/17 1255 Laboratory Hematology Test 07/08/17 12:35 07/08/17 12:55 07/08/17 13:33 Urine Color Kimmy Urine Clarity Slightly-cloudy Urine pH 6.0 pH (4.8-9.5) Urine Specific [place] 1.013 Urine Protein Negative mg/dL (NEGATIVE) Urine Glucose (UA) Negative mg/dL (NEGATIVE) Urine Ketones Negative mg/dL (NEGATIVE) Urine Blood Small (NEGATIVE) Urine Nitrite Negative (NEGATIVE) Urine Bilirubin Moderate (NEGATIVE) Urine Urobilinogen 4.0 mg/dL (0.2-1.9) Urine Leukocyte Esterase Negative (NEGATIVE) Urine RBC 2 /HPF (0-2/HPF) Urine WBC 1 /HPF (0-5/HPF) Urine Squamous Epithelial Cells Many /LPF (</=FEW) Urine Transitional Epithelial Cells Moderate /LPF (NONE-FEW) Urine Amorphous Crystals Few /HPF Urine Bacteria Few /HPF (NONE-FEW) Urine Mucus None /HPF (NONE-FEW) Red Blood Count 3.47 M/uL (4.17-5.56) Mean Corpuscular Volume 82.1 fL (80.0-96.0) Mean Corpuscular Hemoglobin 28.8 pg (26.0-33.0) Mean Corpuscular Hemoglobin Concent 35.1 g/dL (32.0-36.0) Red Cell Distribution Width 18.7 % (11.5-14.5) Mean Platelet Volume 8.9 fL (7.2-11.1) Neutrophils (%) (Auto) % (39.4-72.5) Lymphocytes (%) (Auto) % (17.6-49.6) Monocytes (%) (Auto) % (4.1-12.4) Eosinophils (%) (Auto) % (0.4-6.7) Basophils (%) (Auto) % (0.3-1.4) Nucleated RBC Relative Count (auto) /100WBC Neutrophils # (Auto) K/uL (2.0-7.4) Lymphocytes # (Auto) K/uL (1.3-3.6) Monocytes # (Auto) K/uL (0.3-1.0) Eosinophils # (Auto) K/uL (0.0-0.5) Basophils # (Auto) K/uL (0.0-0.1) Nucleated RBC Absolute Count (auto) K/uL Neutrophils % (Manual) 74 % (39.4-72.5) Lymphocytes % (Manual) 17 % (17.6-49.6) Atypical Lymphocytes % 2 % Monocytes % (Manual) 5 % (4.1-12.4) Eosinophils % (Manual) 0 % (0.4-6.7) Basophils % (Manual) 0 % (0.3-1.4) Metamyelocytes % 2 % Differential Comment See comment Hypochromasia 1+ Anisocytosis 1+ Peripheral Blood Smear Yes Y/N Sodium Level 131 mmol/L (137-145) Potassium Level 2.4 mmol/L (3.5-5.0) Chloride Level 91 mmol/L (98-107) Carbon Dioxide Level 24 mmol/L (22-31) Blood Urea Nitrogen 13 mg/dl (7-18) Creatinine 0.80 mg/dl (0.52-1.04) Glomerular Filtration Rate Calc > 60.0 Random Glucose 61 mg/dl (75-110) Calcium Level 7.2 mg/dl (8.4-10.2) Total Bilirubin 11.4 mg/dl (0.2-1.3) Aspartate Amino Transf (AST/SGOT) 215 U/L (0-35) Alanine Aminotransferase (ALT/SGPT) 84 U/L (0-56) Alkaline Phosphatase 343 U/L (0-126) Ammonia 23 UMOL/L (9-33) Total Protein 5.0 gm/dl (6.3-8.2) Albumin 2.0 g/dl (3.5-5.0) Blood Gas Patient Temperature Na DEGREES Venous Blood pH 7.39 (7.31-7.41) Venous Blood Partial Pressure CO2 40 mmHg Venous Blood Partial Pressure O2 49 mmHg Venous Blood HCO3 24 mmol/L Venous Blood Oxygen Saturation 84 % Venous Blood Base Excess -1 mmol/L Oxygen Liters/Minute 2l Chemistry Test 07/08/17 12:35 07/08/17 12:55 07/08/17 13:33 Urine Color Kimmy Urine Clarity Slightly-cloudy Urine pH 6.0 pH (4.8-9.5) Urine Specific [place] 1.013 Urine Protein Negative mg/dL (NEGATIVE) Urine Glucose (UA) Negative mg/dL (NEGATIVE) Urine Ketones Negative mg/dL (NEGATIVE) Urine Blood Small (NEGATIVE) Urine Nitrite Negative (NEGATIVE) Urine Bilirubin Moderate (NEGATIVE) Urine Urobilinogen 4.0 mg/dL (0.2-1.9) Urine Leukocyte Esterase Negative (NEGATIVE) Urine RBC 2 /HPF (0-2/HPF) Urine WBC 1 /HPF (0-5/HPF) Urine Squamous Epithelial Cells Many /LPF (</=FEW) Urine Transitional Epithelial Cells Moderate /LPF (NONE-FEW) Urine Amorphous Crystals Few /HPF Urine Bacteria Few /HPF (NONE-FEW) Urine Mucus None /HPF (NONE-FEW) White Blood Count 2.1 k/uL (4.5-11.0) Red Blood Count 3.47 M/uL (4.17-5.56) Hemoglobin 10.0 g/dL (12.0-16.0) Hematocrit 28.4 % (34.0-47.0) Mean Corpuscular Volume 82.1 fL (80.0-96.0) Mean Corpuscular Hemoglobin 28.8 pg (26.0-33.0) Mean Corpuscular Hemoglobin Concent 35.1 g/dL (32.0-36.0) Red Cell Distribution Width 18.7 % (11.5-14.5) Platelet Count 35 K/uL (150-450) Mean Platelet Volume 8.9 fL (7.2-11.1) Neutrophils (%) (Auto) % (39.4-72.5) Lymphocytes (%) (Auto) % (17.6-49.6) Monocytes (%) (Auto) % (4.1-12.4) Eosinophils (%) (Auto) % (0.4-6.7) Basophils (%) (Auto) % (0.3-1.4) Nucleated RBC Relative Count (auto) /100WBC Neutrophils # (Auto) K/uL (2.0-7.4) Lymphocytes # (Auto) K/uL (1.3-3.6) Monocytes # (Auto) K/uL (0.3-1.0) Eosinophils # (Auto) K/uL (0.0-0.5) Basophils # (Auto) K/uL (0.0-0.1) Nucleated RBC Absolute Count (auto) K/uL Neutrophils % (Manual) 74 % (39.4-72.5) Lymphocytes % (Manual) 17 % (17.6-49.6) Atypical Lymphocytes % 2 % Monocytes % (Manual) 5 % (4.1-12.4) Eosinophils % (Manual) 0 % (0.4-6.7) Basophils % (Manual) 0 % (0.3-1.4) Metamyelocytes % 2 % Differential Comment See comment Hypochromasia 1+ Anisocytosis 1+ Peripheral Blood Smear Yes Y/N Glomerular Filtration Rate Calc > 60.0 Calcium Level 7.2 mg/dl (8.4-10.2) Total Bilirubin 11.4 mg/dl (0.2-1.3) Aspartate Amino Transf (AST/SGOT) 215 U/L (0-35) Alanine Aminotransferase (ALT/SGPT) 84 U/L (0-56) Alkaline Phosphatase 343 U/L (0-126) Ammonia 23 UMOL/L (9-33) Total Protein 5.0 gm/dl (6.3-8.2) Albumin 2.0 g/dl (3.5-5.0) Blood Gas Patient Temperature Na DEGREES Venous Blood pH 7.39 (7.31-7.41) Venous Blood Partial Pressure CO2 40 mmHg Venous Blood Partial Pressure O2 49 mmHg Venous Blood HCO3 24 mmol/L Venous Blood Oxygen Saturation 84 % Venous Blood Base Excess -1 mmol/L Oxygen Liters/Minute 2l Urinalysis Test 07/08/17 12:35 Urine Color Kimmy Urine Clarity Slightly-cloudy Urine pH 6.0 pH (4.8-9.5) Urine Specific [place] 1.013 Urine Protein Negative mg/dL (NEGATIVE) Urine Glucose (UA) Negative mg/dL (NEGATIVE) Urine Ketones Negative mg/dL (NEGATIVE) Urine Blood Small (NEGATIVE) Urine Nitrite Negative (NEGATIVE) Urine Bilirubin Moderate (NEGATIVE) Urine Urobilinogen 4.0 mg/dL (0.2-1.9) Urine Leukocyte Esterase Negative (NEGATIVE) Urine RBC 2 /HPF (0-2/HPF) Urine WBC 1 /HPF (0-5/HPF) Urine Squamous Epithelial Cells Many /LPF (</=FEW) Urine Transitional Epithelial Cells Moderate /LPF (NONE-FEW) Urine Amorphous Crystals Few /HPF Urine Bacteria Few /HPF (NONE-FEW) Urine Mucus None /HPF (NONE-FEW) EKG/Imaging Imaging Results: CT scan of the head was obtained. The results of the study are possible edema from possible met vs. small ischemic cva. The study was read by the radiologist. I viewed the images myself on the PACS system. Results: CT scan of the abdomen and pelvis was obtained. The results of the study are mets to liver, ascites, pleural effusions. The study was read by the radiologist. I viewed the images myself on the PACS system. ED Course/Re-evaluation ED Course This is a very unfortunate 42-year-old female with end-stage metastatic breast cancer. She presented to the emergency department for weakness and possible dehydration. Her liver failure is continuing to progress. She is thrombocytopenic but no evidence of bleeding so no platelets were given. CT scan of the brain shows a possible area of edema that could be from an underlying metastases without midline shift. He is extremely pleasant and able to take by mouth. She was given 40 mEq by mouth and 40 mEq IV of potassium for her hypokalemia. I spoke with Dr. Sands at length about this patient. The family wants to continue to pursue treatment including the possibility of chemotherapy this upcoming . An MRI of the brain was ordered to evaluate for possible metastases to the brain. She was given dexamethasone 10 mg IV in the meantime. She will be admitted to the hospital for further stabilization and will be seen by Dr. Sands on when he comes to [place]. Decision to Disposition Date: Jul 08, 2017 Decision to Disposition Time: 18:31 Depart Departure Impression: Primary Impression: Hypokalemia Additional Impressions: Liver failure Thrombocytopenia Metastatic breast cancer Condition: Improved Disposition: Admitted from ER Problem Qualifiers Additional Impressions: Liver failure Liver failure chronicity: acute Hepatic coma status: without hepatic coma Qualified Codes: K72.00 - Acute and subacute hepatic failure without coma ALTAGRACIA KHAN MD Jul 08, 2017 12:57
[2017-07-08] MEDS ORDERED: NS(*) 0.9% 500 ML BAG 500 ML IV ONE (13:12)
[2017-07-08 13:52] LABS: PLATELET COUNT, AUTOMATED 35 K/uL (150-450)
--- NOTE | 2017-07-08 14:35 | RADIOLOGY IMAGING REPORT ---
FACILITY: [facility] PATIENT NAME: Kirti Olivares : 1975 MR: [id number] V: [id number] EXAM DATE: ORDERING PHYSICIAN: ALTAGRACIA KHAN TECHNOLOGIST: Location: [facility] [place] Patient: Kirti Olivares : 1975 Visit/Account:[id number] Date of Sevice: 07/08/2017 CT Head without contrast Indication: Altered mental status. Breast cancer. Comparison: None available Technique: Axial CT images were obtained through the brain from the skull base to the vertex without administration of IV contrast. Reformatted coronal and sagittal images were also obtained. One of the following dose optimization techniques was utilized in the performance of this exam: autom ated exposure control; adjustment of the mA and/or kV according to the patient's size; or use of an i terative reconstruction technique. Specific details can be referenced in the facility's radiology CT exam operational policy. Findings: No intracranial bleed, midline shift, extra-axial fluid collection or hydrocephalus. The left occipit al lobe does show a 2.6 x 2.5 cm area of decreased attenuation without mass effect. A similar finding is seen in the right occipital lobe measuring 1.2 x 1.7 cm. No other abnormal density. Rodrigez/white ma tter differentiation appears normal. Bony structures show no fractures or lesions. The visualized paranasal sinuses and mastoid air cells are clear. IMPRESSION: 1. No acute intracranial hemorrhage. 2. The left occipital lobe and right cerebellar hemisphere show area of decreased attenuation. This i s worrisome for edema from a underlying lesion. Other etiologies would include a recent ischemic even t. Suggest a follow-up MRI of the brain, without and with contrast, for further evaluation. I called report to ALTAGRACIA KHAN at 07/08/2017 2:29 PM. Report Dictated By: Anatoly Sanchez at 07/08/2017 2:23 PM Report E-Signed By: Anatoly Sanchez at 07/08/2017 2:31 PM WSN:[id number]
--- NOTE | 2017-07-08 15:31 | RADIOLOGY IMAGING REPORT ---
[place] [facility] [place] Kirti Olivares : 1975 MR: [id number] V: [id number] EXAM DATE: [id number] ORDERING PHYSICIAN: ALTAGRACIA KHAN TECHNOLOGIST: [place] [facility] [place] Patient: Kirti Olivares : 1975 Visit/Account:[id number] Date of Sevice: 07/08/2017 INDICATION: jaundice. Jaundice. DATE: 07/08/2017 3:18 PM. TECHNIQUE: Grayscale and color ultrasound imaging was performed of the abdomen with attention to the right upper quadrant. COMPARISON: CT of June 13, 2017 FINDINGS: The liver is markedly heterogeneous with multiple ill-defined masses. The liver is markedly enlarged. The imaged portion of the pancreas is unremarkable. The aorta and IVC appear patent within the imaged region. The gallbladder wall is thickened measuring approximately 6 mm in maximal thickness. Echogenic materi al fills the gallbladder, and this appears hyperemic. The right kidney measures 11.6 x 5.4 x 6.1 cm with normal cortical thickness. No hydronephrosis. The left kidney was not imaged. IMPRESSION: 1. Markedly enlarged liver with innumerable heterogeneous masses in keeping with metastatic disease. 2. The gallbladder wall is thickened, and the lumen is filled with hyperechoic, hypovolemic material which may reflect metastatic invasion. Report Dictated By: Nicole Riley MD at 07/08/2017 3:18 PM Report E-Signed By: Nicole Riley MD at 07/08/2017 3:26 PM WSN:[id number]
[2017-07-08] MEDS ORDERED: POTASSIUM CHL 20 MEQ TABCR PO ONE (16:10)
[2017-07-08] MEDS ORDERED: NS(*) 0.9% 500 ML BAG 500 ML ONE (16:47)
[2017-07-08] MEDS ORDERED: IOPAMIDOL 76% 75 ML INFUS BTL 75 ML ONE (16:59)
[2017-07-08] MEDS ORDERED: DEXAMETHASONE SOD PHOS 10MG/ML IVP ONE (17:00)
[2017-07-08] MEDS: KCL (*) 20 MEQ/100 ML PREMIX 100 ML IV SCH ×2 (17:00→21:00)
--- NOTE | 2017-07-08 18:59 | RADIOLOGY IMAGING REPORT ---
[place] [facility] [place] Kirti Olivares : 1975 MR: [id number] V: [id number] EXAM DATE: [id number] ORDERING PHYSICIAN: ALTAGRACIA KHAN TECHNOLOGIST: [place] [facility] [place] Patient: Kirti Olivares : 1975 Visit/Account:[id number] Date of Sevice: 07/08/2017 ADDENDUM #1 In my colleague's absence, I was asked to directly compare the liver metastases between this examinat ion, 07/08/2017 and 06/13/2017. It is difficult to accurately quantify the size and number of liver le sions on today's study and the previous examination, not only because of their sheer number, but marjan use of confluent regions of low density parenchyma in the right and left lobes, which is consistent w ith hepatic steatosis. The amount of hepatic steatosis is difficult to quantify between studies marjan use both studies are contrast-enhanced examinations but visually, it appears that hepatic steatosis h as probably progressed to some degree since the 06/13/2017 study. There is no intra or extrahepatic b ile duct dilatation. There is diffuse gallbladder wall thickening which is probably due to generaliz ed hepatic dysfunction. The craniocaudal length of the liver has decreased since the prior study, cu rrently 25.5 cm craniocaudally in the midclavicular line, previously 28.5 cm. Overall I believe there has been decreased size of many of the bilobar liver metastases since the pre vious exam. Although many of the lesions are not definitively remeasurable between studies, I have s elected the following lesions as evidence of partial treatment response since the previous exam: Right lobe segment (series 3 image 65): 2.6 x 2.9 cm today, compared to 3.2 x 3.5 cm on image 50 o f the prior. Right lobe subcapsular segment VII (series 3 image 38):2.0 x 2.5 cm today, 1.7 x 2.3 cm on image 18 o f the prior. Right lobe anteriorly segment VIII (series 3 image 46):1.6 x 1.9 cm today, 2.4 x 3.1 cm on image 32 o f the prior. Segment IVb (series 3 image 73): 1.6 x 2.0 cm today, 2.2 x 2.7 cm on image 64 of the prior. Segment three (series 3 image 78): 1.7 x 2.1 cm today and 2.4 x 2.7 cm on image 67 of the prior. Discussed with Dr. Wong, 07/15/2017. Report Dictated By: Jonh Posada at 07/15/2017 1:01 PM Report E-Signed By: Jonh Posada at 07/15/2017 1:[address] abdomen and pelvis with IV contrast Indication: Liver failure with metastases to liver. Comparison: 06/13/2017.. Technique: Axial CT images were obtained through the abdomen and pelvis during injection of nonioni c iodinated intravenous contrast. Reformatted coronal and sagittal images were also obtained. One of the following dose optimization techniques was utilized in the performance of this exam: Autom ated exposure control; adjustment of the mA and/or kV according to the patient's size; or use of an i terative reconstruction technique. Specific details can be referenced in the facility's radiology C T exam operational policy. Contrast: 75 ml of Isovue-370 IV contrast. Findings: Lower lung lopez: Bilateral pleural effusions, moderate on the left and small on the right with asso ciated atelectasis, this may have mildly increased from the previous exam. Multiple airspace and pare nchymal nodules are again identified throughout the lung bases. Largest in the right middle lobe noel uring 3.4 x 1.7 cm. Unsure if this is a early area of consolidation. Again bilateral hilar adenopathy . Liver: Innumerable metastatic hypodense lesions are again scattered throughout the liver which is enl arged and lobular. Portal veins are faintly opacified however appear to be patent. The hepatic veins are not well visualized. Biliary: Gallbladder is contracted. Biliary system is unremarkable. Pancreas: No discrete focal abnormality. Spleen: Normal appearance. Adrenal glands: Unremarkable. Kidneys / retroperitoneum: No evidence of nephrolithiasis or hydronephrosis. No focal abnormality [place] el / peritoneum / mesenteries: Edematous wall thickening seen in the ascending colon and cecum withou t focal abnormality. The colon shows no other focal abnormality. The appendix is normal. The small meera wel shows no focal abnormality or obstruction. Stomach is mildly distended without focal abnormality. There is mild ascites present which is new. No fluid collections or free air. No focal areas of infla mmation. Lymph node assessment: There is a prominent lymph node between the IVC and aorta at the level of the right renal hilum. This measures 2.4 x 1.6 cm and appears stable. There are several other smaller per iaortic lymph nodes. Pelvic structures: Pelvic structures visualized within normal limits. IUD is in place in the uteru s and appears to be in good position. Vessels: No significant atherosclerotic calcifications seen throughout a nonaneurysmal abdominal aort a and branches. Musculoskeletal / Body wall: There is diffuse sclerotic foci seen through the visualized bony structu res. No indication of acute fracture or vertebral body compression. Subcutaneous edema is now present. IMPRESSION: 1. There is continued and unchanged diffuse metastatic disease to the liver, lungs, periaortic lymph nodes and bony structures. 2. There is no mild ascites and subcutaneous edema. 3. Moderate left pleural effusion small right pleural effusion with associated atelectasis. This may be mildly increased from the previous exam. Again metastatic lesions to the lungs and hilar regions s how no adenopathy. The right middle lobe opacity may be a enlarging lesion versus area of consolidati on. 4. There is now edematous wall thickening of the ascending colon and cecum. This is nonspecific. This may most likely be due to the ascites. Other etiologies would include colitis. Report Dictated By: Anatoly Sanchez at 07/08/2017 6:43 PM Report E-Signed By: Anatoly Sanchez at 07/08/2017 6:55 PM WSN:[id number]
[2017-07-08 19:51] VITALS: BP 106/68
--- NOTE | 2017-07-08 20:02 | RADIOLOGY IMAGING REPORT ---
FACILITY: [facility] PATIENT NAME: Kirti Olivares : 1975 MR: [id number] V: [id number] EXAM DATE: [id number] ORDERING PHYSICIAN: ALTAGRACIA KHAN TECHNOLOGIST: Location: [facility] Patient: Kirti Olivares : 1975 Visit/Account:[id number] Date of Sevice: 07/08/2017 EXAMINATION: Brain MRI without IV contrast HISTORY: Possible metastasis to brain seen on CT scan. COMPARISON: CT of the head from the same day. TECHNIQUE: Multi-planar, multi-sequence brain MRI was performed without IV contrast administration. FINDINGS: Brain and other intracranial structures: There are lesions in the right cerebellum and left occipita l lobe with surrounding edema. There is a small T2 hyperintense focus with susceptibility in the whit e matter above the atrium of the right lateral ventricle. There is also a small T2 hyperintense lesio n in the right frontal lobe along the rosa-white matter junction. No midline shift or acute infarct. Calvarium / scalp: Negative. Skull base: Negative. Visualized sinuses / orbits: Moderate mucosal thickening in the left maxillary sinus. IMPRESSION: Lesions in the left occipital lobe and right cerebellum with surrounding edema consistent with metast ases. There is also a T2 hyperintense lesion in the right frontal lobe along the rosa-white matter ju nction which is suspicious for a metastatic lesion. Small T2 hyperintense lesion in the right periatrial white matter is nonspecific and could represent a focus of prior microhemorrhage, a small cavernoma, or a small metastatic lesion. No midline shift. Report Dictated By: Gabe Mast MD at 07/08/2017 7:48 PM Report E-Signed By: Gabe Mast MD at 07/08/2017 7:58 PM [id number]
[2017-07-08] MEDS ORDERED: PROMETHAZINE 25 MG/ML 1 ML AMP IVP PRN (20:30)
--- NOTE | 2017-07-08 20:37 | History & Physical ---
History of Present Illness Chief Complaint Confused History of Present Illness 42yo female with widely metastatic breast cancer currently receiving palliative chemotherapy through [facility]. Her last doses of carboplatin and gemcitabine were on 07/03/17. She did receive transfusion of PRBC yesterday. Her reports some confusion and "acting differently". She has been weaker. She has had increased lower extremity edema. She has had some persistent pain in upper abdomen and lower chest in mid-axillary areas. She reports her abdominal distension has been "a little better". She states she may have some low grade fever a few days ago. Her appetite has been marginal. No N/V. No diarrhea. She has had BMs daily recently. She was evaluated in the ER and found to have essentially unchanged metastatic disease involving liver, bones, lungs. Unfortunately, now she has metastatic lesions involving her brain. She was recommended for admission. History Problems: (1) Pleural effusion Status: Chronic (2) Liver failure Status: Chronic (3) Breast cancer, stage 4 Status: Chronic (4) Anemia due to chemotherapy Status: Chronic (5) Thrombocytopenia Status: Chronic Home Meds Active Scripts Potassium Chloride (Potassium Chloride) 20 Meq Tablet.er, 20 MEQ PO DAILY, #30 PACK 1 Refill Prov:SARAH JENSEN MD 07/07/17 Lorazepam (ATIVAN) 0.5 Mg Tablet, 0.5 MG PO Q4-6H, #30 TAB 0 Refills Prov:SARAH JENSEN MD 06/23/17 Oxycodone Hcl (OXYCONTIN) 10 Mg Tab.er.12h, 20-30 MG PO BID, #120 TAB Take 10mg or 20 mg (1-2 tablets) every 12 hours for pain management Prov:SARAH JENSEN MD 06/23/17 Prochlorperazine Maleate (Compazine) 10 Mg Tablet, 10 MG PO Q6H, #60 TAB Prov:SARAH JENSEN MD 06/23/17 Oxycodone Hcl (OXYCODONE HCL) 5 Mg Capsule, 5 MG PO Q4-6H for PAIN, #120 CAPSULE Prov:SARAH JENSEN MD 06/23/17 Ondansetron (ZOFRAN ODT) 8 Mg Tab.rapdis, 8 MG PO Q4H Y for NAUSEA, #30 TAB Prov:JUAN CARLOS TREVIÑO DO 3/26/18 Zolpidem Tartrate (AMBIEN) 10 Mg Tablet, 1 TAB PO QHS, #30 TAB 2 Refills Prov:ANAHI GRAVES [employer], ONC 02/18/17 Reported Medications Calcium Carbonate (TUMS) 200 Mg Tab.chew, 200 MG PO Y for HEARTBURN, TAB.CHEW 07/02/17 Omeprazole Magnesium (PRILOSEC OTC) 20 Mg Tablet.dr, 1 TAB PO QDAY, TAB 07/02/17 Ibuprofen (IBUPROFEN) 200 Mg Tablet, 1 TAB PO Q6H, TAB 06/11/17 Sennosides/Docusate Sodium (SENNA LAXATIVE TABLET) 1 Each Tablet, 1 EACH PO DAILY 02/07/17 Denosumab (XGEVA) 120 Mg/1.7 Ml Vial, 120 MG SUBQ Q4WK for breast CA, VIAL 06/01/15 Allergies: Coded Allergies: codeine (Verified Adverse Reaction, Intermediate, NAUSEA/VOMITING, 07/08/17 ) Patient History: FH: gastric cancer Maternal aunt FH: ovarian cancer aunt Hx Smoking: Yes (12 YRS 03/25 PPD QUIT 2007) Smoking Status: Former Smoker Caffeine Intake: Tea Caffeine/Cups Per Day: 2 CPD Hx Alcohol Use: Yes (in past/none for past 9 months) Hx Substance Use Disorder: No Social Drug Use: Occasional Review of Systems Constitutional: Fever, No Chills Neurological: Confusion, Weakness Eyes: No Vision Change, No Loss of Vision ENT: No Hearing Loss Cardiovascular: Chest Pain Respiratory: Shortness of Breath Gastrointestinal: No Nausea, No Vomiting, No Diarrhea Genitourinary: No Dysuria Musculoskeletal: Pain, Impaired Mobility Exam Vital Signs Vital Signs Date Time Temp Pulse Resp B/P (MAP) Pulse Ox O2 Delivery O2 Flow Rate FiO2 07/08/17 19:51 97.5 112 16 106/68 (81) 95 Nasal Cannula 2.0 General Appearance: Alert, Awake Neuro: Other (no focal motor deficits) ENT: Oropharynx Clear Neck: No Masses Cardiovascular: Regular Rate and Rhythm, No JVD Respiratory: Other (diminished breath sounds at bases) Chest: No Tenderness, Other (port right upper chest) GI: Other (distended/liver edge plapable well below costal margin and is tender to palpation/no obvious fluid wave noted/BS diminished) Extremities: Warm, Perfused, Edema (2-3+ lower extremity edema) Integumentary: Other (no skin lesions noted at this time) Medical Decision Making Data Points Result Diagram: 07/08/17 1255 07/08/17 1255 Item Value Date Time Prothromb Time International Ratio 1.81 07/07/17 1000 Prothrombin Time 21.4 seconds H 07/07/17 1000 Albumin 2.0 g/dl L 07/08/17 1255 Total Protein 5.0 gm/dl L 07/08/17 1255 Ammonia 23 UMOL/L 07/08/17 1255 Alkaline Phosphatase 343 U/L H 07/08/17 1255 Alanine Aminotransferase (ALT/SGPT) 84 U/L H 07/08/17 1255 Aspartate Amino Transf (AST/SGOT) 215 U/L H 07/08/17 1255 Total Bilirubin 11.4 mg/dl H 07/08/17 1255 Calcium Level 7.2 mg/dl L 07/08/17 1255 Urine Mucus None /HPF 07/08/17 1235 Urine Bacteria Few /HPF 07/08/17 1235 Urine Amorphous Crystals Few /HPF 07/08/17 1235 Urine Transitional Epithelial Cells Moderate /LPF H 07/08/17 1235 Urine Squamous Epithelial Cells Many /LPF H 07/08/17 1235 Urine WBC 1 /HPF 07/08/17 1235 Urine RBC 2 /HPF 07/08/17 1235 Urine Leukocyte Esterase Negative 07/08/17 1235 Urine Urobilinogen 4.0 mg/dL H 07/08/17 1235 Urine Bilirubin Moderate 07/08/17 1235 Urine Nitrite Negative 07/08/17 1235 Urine Blood Small 07/08/17 1235 Urine Ketones Negative mg/dL 07/08/17 1235 Urine Glucose (UA) Negative mg/dL 07/08/17 1235 Urine Protein Negative mg/dL 07/08/17 1235 Urine Specific [place] 1.013 07/08/17 1235 Urine pH 6.0 pH 07/08/17 1235 Urine Clarity Slightly-cloudy 07/08/17 1235 Urine Color Kimmy 07/08/17 1235 EKG / Imaging Imaging PATIENT NAME: Kirti Olivares : 1975 MR: [id number] V: [id number] EXAM DATE: ORDERING PHYSICIAN: ALTAGRACIA KHAN TECHNOLOGIST: Location: [facility] Patient: Kirti Olivares : 1975 Visit/Account:[id number] Date of Sevice: 07/08/2017 CT abdomen and pelvis with IV contrast Indication: Liver failure with metastases to liver. Comparison: 06/13/2017.. Technique: Axial CT images were obtained through the abdomen and pelvis during injection of nonionic iodinated intravenous contrast. Reformatted coronal and sagittal images were also obtained. One of the following dose optimization techniques was utilized in the performance of this exam: Automated exposure control; adjustment of the mA and/ or kV according to the patient's size; or use of an iterative reconstruction technique. Specific details can be referenced in the facility's radiology CT exam operational policy. Contrast: 75 ml of Isovue-370 IV contrast. Findings: Lower lung lopez: Bilateral pleural effusions, moderate on the left and small on the right with associated atelectasis, this may have mildly increased from the previous exam. Multiple airspace and parenchymal nodules are again identified throughout the lung bases. Largest in the right middle lobe measuring 3.4 x 1.7 cm. Unsure if this is a early area of consolidation. Again bilateral hilar adenopathy. Liver: Innumerable metastatic hypodense lesions are again scattered throughout the liver which is enlarged and lobular. Portal veins are faintly opacified however appear to be patent. The hepatic veins are not well visualized. Biliary: Gallbladder is contracted. Biliary system is unremarkable. Pancreas: No discrete focal abnormality. Spleen: Normal appearance. Adrenal glands: Unremarkable. Kidneys / retroperitoneum: No evidence of nephrolithiasis or hydronephrosis. No focal abnormality. Bowel / peritoneum / mesenteries: Edematous wall thickening seen in the ascending colon and cecum without focal abnormality. The colon shows no other focal abnormality. The appendix is normal. The small bowel shows no focal abnormality or obstruction. Stomach is mildly distended without focal abnormality. There is mild ascites present which is new. No fluid collections or free air. No focal areas of inflammation. Lymph node assessment: There is a prominent lymph node between the IVC and aorta at the level of the right renal hilum. This measures 2.4 x 1.6 cm and appears stable. There are several other smaller periaortic lymph nodes. Pelvic structures: Pelvic structures visualized within normal limits. IUD is in place in the uterus and appears to be in good position. Vessels: No significant atherosclerotic calcifications seen throughout a nonaneurysmal abdominal aorta and branches. Musculoskeletal / Body wall: There is diffuse sclerotic foci seen through the visualized bony structures. No indication of acute fracture or vertebral body compression. Subcutaneous edema is now present. IMPRESSION: 1. There is continued and unchanged diffuse metastatic disease to the liver, lungs, periaortic lymph nodes and bony structures. 2. There is no mild ascites and subcutaneous edema. 3. Moderate left pleural effusion small right pleural effusion with associated atelectasis. This may be mildly increased from the previous exam. Again metastatic lesions to the lungs and hilar regions show no adenopathy. The right middle lobe opacity may be a enlarging lesion versus area of consolidation. 4. There is now edematous wall thickening of the ascending colon and cecum. This is nonspecific. This may most likely be due to the ascites. Other etiologies would include colitis. Report Dictated By: Anatoly Sanchez at 07/08/2017 6:43 PM Report E-Signed By: Anatoly Sanchez at 07/08/2017 6:55 PM WSN:[id number] PATIENT NAME: Kirti Olivares : 1975 MR: [id number] V: [id number] EXAM DATE: [id number] ORDERING PHYSICIAN: ALTAGRACIA KHAN TECHNOLOGIST: Location: [facility] Patient: Kirti Olivares : 1975 Visit/Account:[id number] Date of Sevice: 07/08/2017 EXAMINATION: Brain MRI without IV contrast HISTORY: Possible metastasis to brain seen on CT scan. COMPARISON: CT of the head from the same day. TECHNIQUE: Multi-planar, multi-sequence brain MRI was performed without IV contrast administration. FINDINGS: Brain and other intracranial structures: There are lesions in the right cerebellum and left occipital lobe with surrounding edema. There is a small T2 hyperintense focus with susceptibility in the white matter above the atrium of the right lateral ventricle. There is also a small T2 hyperintense lesion in the right frontal lobe along the rosa-white matter junction. No midline shift or acute infarct. Calvarium / scalp: Negative. Skull base: Negative. Visualized sinuses / orbits: Moderate mucosal thickening in the left maxillary sinus. IMPRESSION: Lesions in the left occipital lobe and right cerebellum with surrounding edema consistent with metastases. There is also a T2 hyperintense lesion in the right frontal lobe along the rosa-white matter junction which is suspicious for a metastatic lesion. Small T2 hyperintense lesion in the right periatrial white matter is nonspecific and could represent a focus of prior microhemorrhage, a small cavernoma, or a small metastatic lesion. No midline shift. Report Dictated By: Gabe Mast MD at 07/08/2017 7:48 PM Report E-Signed By: Gabe Mast MD at 07/08/2017 7:58 PM [id number] Assessment and Plan Problems: (1) Breast cancer, stage 4 Status: Chronic Assessment & Plan: Widely metastatic with new involvement of brain. Her disease has been progressive despite chemotherapy. At this point, she would like to try to continue therapy, but it appears to be futile. Dr. Wong will be here on and will meet with the patient and her family. Will continue the IV Decadron started in the ER. Will continue the OxyContin and OxyIR as she feels it provides good pain relief. Will continue her Colace as she states it has been effective. Will also continue Ativan for anxiety if needed. (2) Pleural effusion Status: Chronic Assessment & Plan: It is relatively unchanged from last month. Consider thoracentesis if she becomes symptomatic. (3) Hypokalemia Status: Acute Assessment & Plan: Will replace potassium with IV fluids. Watch labs. Copies to: SLAVA STOKES MD Venous Thromboembolism Antithrombotics Is Pt On Any Antithrombotics?: No Prophylaxis Tx Contraindicated Pharmacological Contraindicati: Liver Disease Exam Sepsis Risk: No Definite Risk SHERIE ARGUELLES MD Jul 08, 2017 20:37
[2017-07-08] MEDS: DOCUSATE SODIUM 100 MG CAP PO SCH (21:00)
[2017-07-08] MEDS ORDERED: LORazepam 0.5 MG TAB PO PRN (21:00)
[2017-07-09] VITALS (9 sets, daily range): BP systolic 94–110; BP diastolic 58–77; Ht 167.6 cm; Wt 59.0 kg
[2017-07-09] MEDS: ZOLPIDEM TARTRATE 10 MG TAB PO PRN ×2 (00:56→20:24)
[2017-07-09] MEDS: DEXAMETHASONE SOD 4 MG/ML VIAL IVP SCH ×2 (06:13→17:51)
[2017-07-09 07:02] LABS: PLATELET COUNT, AUTOMATED 18 K/uL (150-450)
[2017-07-09 07:02] LABS: INR 1.64
[2017-07-09] MEDS: DOCUSATE SODIUM 100 MG CAP PO SCH ×2 (08:08→20:19)
[2017-07-09] MEDS ORDERED: NS(*) 0.9% 500 ML BAG 500 ML ONE (15:51)
--- NOTE | 2017-07-09 16:27 | Hospitalist Progress Note ---
Subjective Progress Notes Subjective The patient is reporting that she is comfortable currently. She did get some sleep last night. No reported bleeding from gums or any other sites. Physical Exam Vital Signs Date Time Temp Pulse Resp B/P (MAP) Pulse Ox O2 Delivery O2 Flow Rate FiO2 07/09/17 16:13 98.5 102 18 95/73 07/09/17 15:56 94 Nasal Cannula 2.0 Intake and Output 07/10/17 07:00 Intake Total 0 ml Balance 0 ml Intake Oral 0 ml # Voids 1 General Appearance: Alert, Awake, No Acute Distress Integumentary: Jaundice Result Diagram: 07/09/17 0534 07/09/17 0534 Assessment and Plan Problems: (1) Breast cancer, stage 4 Status: Chronic Assessment & Plan: Widely metastatic with new involvement of brain. Her disease has been progressive despite chemotherapy. At this point, she would like to try to continue therapy. Dr. Wong will be see the patient tomorrow. He will discuss trying radiation treatment for the brain mets. Will continue the IV Decadron. Will continue the OxyContin and OxyIR as she feels it provides good pain relief. Will continue her Colace as she states it has been effective. Will also continue Ativan for anxiety if needed. Total bilirubin, AST, ALT, and alk phos are relatively stable. Ammonia was normal. (2) Thrombocytopenia Status: Chronic Assessment & Plan: Acutely worsened secondary to recent chemotherapy. Will give platelets because she is below 20k. No evidence of bleeding. (3) Anemia due to chemotherapy Status: Chronic Assessment & Plan: She was last transfused on 07/07 with 2 units of PRBC. Not symptomatic. Follow closely. (4) Hypokalemia Status: Acute Assessment & Plan: Resolved with replacement. Will follow. (5) Pleural effusion Status: Chronic Assessment & Plan: It is relatively unchanged from last month. Consider thoracentesis if she becomes symptomatic. Exam Sepsis Risk: No Definite Risk MARYLIN CIFUENTES MD Jul 09, 2017 16:27
[2017-07-09] MEDS ORDERED: KCL/NS* 20 MEQ/1000 ML PREMIX 1,000 ML IV SCH (20:45)
[2017-07-10 02:00] VITALS: BP 113/62
[2017-07-10] MEDS: DEXAMETHASONE SOD 4 MG/ML VIAL IVP SCH ×2 (05:34→18:10)
[2017-07-10 07:16] VITALS: BP 107/78
[2017-07-10 08:14] LABS: PLATELET COUNT, AUTOMATED 42 K/uL (150-450)
[2017-07-10] MEDS: DOCUSATE SODIUM 100 MG CAP PO SCH ×2 (08:18→20:12)
[2017-07-10] MEDS ORDERED: KCL/NS* 20 MEQ/1000 ML PREMIX 1,000 ML IV SCH (10:45)
[2017-07-10 12:00] VITALS: BP 113/79
--- NOTE | 2017-07-10 12:36 | Hospitalist Progress Note ---
Subjective Progress Notes Subjective She reports pain is fairly well controlled. She is having BMs. Physical Exam Vital Signs Date Time Temp Pulse Resp B/P (MAP) Pulse Ox O2 Delivery O2 Flow Rate FiO2 07/10/17 12:00 97.8 101 16 113/79 (90) 96 Nasal Cannula 2.0 Intake and Output 07/11/17 07:00 Intake Total 140 ml Balance 140 ml Intake Oral 140 ml # Voids 1 General Appearance: Alert, Awake, Other (jaundiced) Eyes: Other (scleral icterus) Cardiovascular: Regular Rate and Rhythm Respiratory: Clear to Auscultation Chest: Other (port right upper chest) GI: Other (distended/fairly soft/BS present/some tenderness over upper abdomen) Extremities: Warm, Perfused, Edema Result Diagram: 07/10/1774407/10/17744 Item Value Date Time Albumin 2.2 g/dl L 07/10/17 07 Total Protein 5.5 gm/dl L 07/10/17 0745 Alkaline Phosphatase 421 U/L H 07/10/17 0745 Alanine Aminotransferase (ALT/SGPT) 105 U/L H 07/10/17 0745 Aspartate Amino Transf (AST/SGOT) 224 U/L H 07/10/17 0745 Total Bilirubin 12.9 mg/dl H 07/10/17 0745 Calcium Level 7.0 mg/dl *L 07/10/17 07 Assessment and Plan Problems: (1) Breast cancer, stage 4 Status: Chronic Assessment & Plan: Widely metastatic with new involvement of brain. Her disease has been progressive despite chemotherapy. At this point, she would like to try to continue therapy. Dr. Wong met with the patient and her family. He will talk with radiation oncology/tumor board about options. Will continue the IV Decadron. Will continue the OxyContin and OxyIR as she feels it provides good pain relief. Will continue her Colace as she states it has been effective. Will also continue Ativan for anxiety if needed. (2) Thrombocytopenia Status: Chronic Assessment & Plan: Acutely worsened secondary to recent chemotherapy. We did transfuse platelets yesterday as she was below 20K. No evidence of bleeding. PLT count is 42K today. (3) Anemia due to chemotherapy Status: Chronic Assessment & Plan: She was last transfused on 07/07 with 2 units of PRBC. Not symptomatic. Follow closely. (4) Hypokalemia Status: Acute Assessment & Plan: Resolved with replacement. Will follow. (5) Pleural effusion Status: Chronic Assessment & Plan: It is relatively unchanged from last month. Consider thoracentesis if she becomes symptomatic. Exam Sepsis Risk: No Definite Risk SHERIE ARGUELLES MD Jul 10, 2017 12:35
[2017-07-10 14:59] VITALS: BP 104/91
--- NOTE | 2017-07-10 18:59 | ONCOLOGY FOLLOW UP NOTE ---
EVENT DATE: July 10, 2017 Dr. Sands requested that I look at the imaging on this patient and advise regarding radiotherapy options. I also discussed the case with Dr. Shira Thomas, who has been very familiar with the patient's history at the [facility]. Patient has metastatic breast carcinoma with new findings of isolated brain metastasis. Cancer was originally diagnosed in July of 2012 (grade 3 invasive ductal carcinoma, triple negative), biopsy proven bone metastasis. Ongoing systemic therapy directed by Dr. Sands. Radiographic studies were notable for a head CT scan on July 08, demonstrating a 2.6 x 2.5 cm area of decreased attenuation in the left occipital lobe. There is a second suspected lesion in the right occipital lobe measuring 1.2 x 1.7 cm. That was a noncontrast CT. MRI scan was recommended, also performed on the say day without IV contrast. That study confirmed lesions in the right cerebellum with surrounding edema in the left occipital lobe with surrounding edema. There is a ill-defined possible lesion in the right frontal lobe, which will be further evaluated at a later point with a contrast MRI scan of the brain. That study can wait, however, at this time. Patient's clinical status has improved on Decadron since admission. Dr. Sands saw the patient and contacted me for radiotherapy considerations. CT simulation was performed with aquaplast mask fabrication today. Radiation lopez were designed to cover the cerebellum and the occipital lobe lesions, which will be treated to 20 Gy in five fractions at 4 Gy per fraction. Treatments will start within 24 hours, as soon as computer programming is completed. My plan is to treat the patient with five fractions to the site, then explore contrast-enhanced MRI scan in approximately seven to 14 days, if clinical status is stable, for possible stereotactic boost. Breast carcinoma is typically sensitive to radiotherapy and should respond at that location. MTDD
[2017-07-10] MEDS: oxyCODONE HCL 5 MG CAP PO PRN (19:08)
[2017-07-10 19:09] VITALS: BP 113/79
[2017-07-10] MEDS: ZOLPIDEM TARTRATE 10 MG TAB PO PRN (20:12)
[2017-07-11] VITALS (9 sets, daily range): BP systolic 114–123; BP diastolic 79–89
[2017-07-11] MEDS: oxyCODONE HCL 5 MG CAP PO PRN ×2 (05:22→12:12)
[2017-07-11] MEDS: DEXAMETHASONE SOD 4 MG/ML VIAL IVP SCH ×2 (05:23→18:10)
[2017-07-11 06:32] LABS: INR 1.45
[2017-07-11 06:58] LABS: PLATELET COUNT, AUTOMATED 25 K/uL (150-450)
[2017-07-11] MEDS: KCL (*) 20 MEQ/100 ML PREMIX 100 ML IV SCH ×2 (08:30→10:30)
[2017-07-11] MEDS: DOCUSATE SODIUM 100 MG CAP PO SCH ×2 (09:00→20:47)
[2017-07-11] MEDS ORDERED: NS(*) 0.9% 500 ML BAG 500 ML ONE (11:31)
--- NOTE | 2017-07-11 11:53 | Hospitalist Progress Note ---
Subjective Progress Notes Subjective This patient was admitted for anemia. She had no acute changes overnight. Patient Complains of: Cardiovascular: No: Chest Pain Respiratory: No: Shortness of Breath Physical Exam Vital Signs Date Time Temp Pulse Resp B/P (MAP) Pulse Ox O2 Delivery O2 Flow Rate FiO2 07/11/17 11:36 97.7 92 16 118/82 (94) 96 Nasal Cannula 2.0 Intake and Output 07/12/17 07:00 Intake Total 240 ml Balance 240 ml Intake Oral 240 ml # Voids 1 Cardiovascular: Regular Rate and Rhythm Respiratory: Clear to Auscultation Integumentary: Pallor Result Diagram: 07/11/17 0549 07/11/17 0549 Assessment and Plan Problems: (1) Breast cancer, stage 4 Status: Chronic Assessment & Plan: She does have widely metastatic disease with new involvement of brain. Dr. Wong met with the patient and her family. He will talk with radiation oncology/tumor board about options. She is currently on IV Decadron, OxyContin, and OxyIR. (2) Thrombocytopenia Status: Chronic Assessment & Plan: She did receive platelets earlier in the admission. Her counts are beginning to drift back down. (3) Anemia due to chemotherapy Status: Chronic Assessment & Plan: She is scheduled to receive 2 units of red cells today. (4) Hypokalemia Status: Acute Assessment & Plan: She is scheduled to receive a K-ridder today. (5) Pleural effusion Status: Chronic Assessment & Plan: It is relatively unchanged from last month. Exam Sepsis Risk: No Definite Risk JUAN CARLOS TREVIÑO DO Jul 11, 2017 11:53
[2017-07-11] MEDS: IBUPROFEN 600 MG TAB PO PRN (16:34)
[2017-07-12] VITALS (12 sets, daily range): BP systolic 101–120; BP diastolic 67–88
[2017-07-12] MEDS: DEXAMETHASONE SOD 4 MG/ML VIAL IVP SCH ×2 (05:46→17:25)
[2017-07-12] MEDS: ONDANSETRON 4 MG/2 ML VIAL IVP PRN ×2 (05:47→16:32)
[2017-07-12 06:11] LABS: PLATELET COUNT, AUTOMATED 14 K/uL (150-450)
[2017-07-12] MEDS: DOCUSATE SODIUM 100 MG CAP PO SCH ×2 (08:42→20:24)
[2017-07-12] MEDS ORDERED: KCL (*) 20 MEQ/100 ML PREMIX 100 ML IV ONE ×3 (09:00→12:30)
[2017-07-12] MEDS ORDERED: NS(*) 0.9% 500 ML BAG 500 ML ONE ×3 (09:36→18:11)
--- NOTE | 2017-07-12 12:28 | Medical Nutrition Therapy ---
Nutrition Anthropometrics Height (Inches): 66.00 Height (Calculated Centimeters: 167.260133 Weight (Pounds): 130 Weight (Calculated Kilograms): 58.967 BMI Calculated: 20.98 Abhijit Nutrition Score: Probably Inadequate Abhijit Nutrition Risk Score: 16 Dietary Referral Nutrition Risk Factors: Unplanned Loss >10lbs Nutrition Risk Comment: DECREASED APPETITE Physical Findings Physical Appearance: BMI 21 Skin Appearance Skin Appearance: Edema Edema Location Modifier: Both Edema Location: Lower Extremity Type of Edema: Degree of Edema: 3+ Gastrointestinal Symptoms GI Symtoms: Bloating Tube Present: Bowel Sounds: Recent Bowel Pattern: Stool Characteristics: Nutritional Diagnosis Nutritional Risk Acuity 2: Head/Neck/GI Cancer Nutritional Risk Acuity 3: Weight Loss Past Medical History: Breast cancer stage 4 with mets, liver failure, anemia due to chemotherapy Nutritional Acuity: 2-Moderate Nutrition Diagnosis: Increased Nutrient Needs Nutrition Etiology: Physiological Causes Nutrition Problem/Etiology/Sym: Increased nutrient needs related to physiological causes as evidenced by advanced breast cancer with mets, recent wt loss Energy Requirement: 1650 ([id number]) Protein Requirement: 70 (70-75 (1.2-1.3 g/kg)) Fluid Requirement: 1740 (30 ml/kg) Diet Type: Diet as Tolerated JUAN/REG Nutrition Intervention: Cont diet as ordered, Encourage intake Nutrition Monitoring & Eval RD Patient Assessment Time: [address] Assessment Type: RD Assessment Patient Nutrition Acuity: 2-Moderate Follow Up Date: Jul 16, 2017 Nutritional Comment: 07/09 Pt admitted with widely metastatic stage 4 breast cancer with pleural effusion. Per physician note pt has been recieving palliative chemotherapy through [facility]. Pt diet as tolerated with no meals recorded. Hct 25.8, alb 1.9. Continue to monitor pt progress and intakes. 07/12 Pt eating 81% of JUAN and per RD interview doing well with food. She prefers healthier food to fried foods and has been having a decent appetite. Not reporting N/V. Notable labs include low H/H, Na 135, K 3.3, BUN 20, creatinine .5, bilirubin 15.4, elevated liver enz, alk phos 397, tot pro 4.6 and alb 1.8. Will offer nutr suppl and encourage intake. -JOHN HIU Jul 12, 2017 12:28
[2017-07-12] MEDS: oxyCODONE HCL 5 MG CAP PO PRN (13:02)
--- NOTE | 2017-07-12 16:14 | Hospitalist Progress Note ---
Subjective Progress Notes Subjective Mrs. Olivares is a 42 y.o female with widely metastatic breast cancer with Liver Failure, Anemia and Thrombocytopenia, currently receiving palliative chemotherapy through [facility]. Her last doses of carboplatin and gemcitabine were on 07/03/17. She did receive transfusion of PRBC and Platelets. She c/o rectal bleed today. Her Platelets were 14K and K level was 3.3. Patient Complains of: Neurological: No: Confusion, Weakness, Dizziness Cardiovascular: No: Chest Pain, Palpitations Respiratory: No: Cough, Congestion, Shortness of Breath Gastrointestinal: Bowel Movement, No Nausea, No Vomiting Genitourinary: No Dysuria, No Hematuria Musculoskeletal: No: Pain, Sprain, Strain Physical Exam Vital Signs Date Time Temp Pulse Resp B/P (MAP) Pulse Ox O2 Delivery O2 Flow Rate FiO2 07/12/17 13:32 98.5 95 16 106/73 07/12/17 07:48 96 Nasal Cannula 2.0 Intake and Output 07/13/17 07:00 Intake Total 760 ml Balance 760 ml Intake Oral 360 ml Blood Product 400 ml # Voids 3 # Bowel Movements 3 General Appearance: Alert, Awake, No Acute Distress, Afebrile, Other (pleasant) Neuro: No Gross deficits Eyes: PERRLA, Other (Jaundice) ENT: Normal Cardiovascular: Normal Rhythm & Peripheral Pulses Chest: Other (yellow discoloration) GI: Soft and Non-Tender (with ascitis) Extremities: Edema Integumentary: Generalized Fragile Skin, Jaundice Psych: Alert & Oriented X3, Appropriate Mood & Affect Result Diagram: 07/12/17 0535 07/12/17 0535 Assessment and Plan Problems: (1) Breast cancer, stage 4 Status: Chronic Assessment & Plan: She does have widely metastatic disease with new involvement of brain. Dr. Wong met with the patient and her family. He will talk with radiation oncology/tumor board about options. She is currently on IV Decadron, OxyContin, and OxyIR. 07/12: I will continue her current management and transfuse 2 units of platelets. I will get CBC and BMP later and in am (2) Thrombocytopenia Status: Chronic Assessment & Plan: She did receive platelets earlier in the admission. Her counts are beginning to drift back down. 07/12: She odom s14K platelets and rectal bleed and I will transfuse 2U platelets. (3) Anemia due to chemotherapy Status: Chronic Assessment & Plan: She is scheduled to receive 2 units of red cells today. (4) Hypokalemia Status: Acute Assessment & Plan: She is scheduled to receive a K-ridder today. 07/12: I will give her 2 KCL riders today and check her BMP (5) Pleural effusion Status: Chronic Assessment & Plan: It is relatively unchanged from last month. Time Spent on Plan of Care: < 30 min Copies to: SLAVA STOKES MD; SWETHA GEE MD Exam Sepsis Risk: No Definite Risk ALIZA HITCHCOCK MD Jul 12, 2017 16:14
[2017-07-12 16:57] LABS: PLATELET COUNT, AUTOMATED 106 K/uL (150-450)
[2017-07-12] MEDS ORDERED: NS(*) 0.9% 250 ML BAG 250 ML ONE (21:11)
[2017-07-12] MEDS: IBUPROFEN 600 MG TAB PO PRN (21:27)
[2017-07-12] MEDS: ZOLPIDEM TARTRATE 10 MG TAB PO PRN (21:32)
[2017-07-13 01:01] VITALS: BP 124/87
[2017-07-13] MEDS: DEXAMETHASONE SOD 4 MG/ML VIAL IVP SCH (05:21)
[2017-07-13 05:40] VITALS: BP 117/75
[2017-07-13 05:47] LABS: PLATELET COUNT, AUTOMATED 64 K/uL (150-450)
[2017-07-13 07:41] VITALS: BP 117/80
[2017-07-13] MEDS: DOCUSATE SODIUM 100 MG CAP PO SCH (09:00)
[2017-07-13] MEDS ORDERED: SPIR25TA76 PO (10:58)
[2017-07-13] MEDS ORDERED: FURO-47 PO (10:58)
[2017-07-13] MEDS ORDERED: HEPARIN FLSH (PORT) 500 UN/5ML ONE (11:19)
--- NOTE | 2017-07-13 12:04 | Hospitalist Depart ---
Discharge Summary Reason for Hosp/Final Diag: (1) Breast cancer, stage 4 Status: Chronic Hospital Course & Plan: She does have widely metastatic disease with new involvement of brain. Dr. Wong met with the patient and her family. He will talk with radiation oncology/tumor board about options. She is currently on IV Decadron, OxyContin, and OxyIR. 07/12: I will continue her current management and transfuse 2 units of platelets. I will get CBC and BMP later and in am 07/13: Mrs. Olivares is a 42 y.o female with widely metastatic breast cancer with Liver Failure, Anemia and Thrombocytopenia, currently receiving palliative chemotherapy through [facility]. Her last doses of carboplatin and gemcitabine were on 07/03/17. She did receive transfusion of PRBC and Platelets. She c/o rectal bleed today. Her Platelets were 14K and K level was 3.3. Today she is hemodynamically stable and afebrile. She is in pleasant mood and wants to go home. Her Hb has improved to 10gm after transfusion and platelets improved to >100K after 2U platelet infusion yesterday but today dropped to 67K. She denies any rectal bleed today. She is DNR and DNI. She is receiving Radiation and chemotherapy for her breast cancer. She still has significant jaundice with T.bili 17.7 and sig. ascites. I have recommended her Paracentesis if her respiratory status gets compromised. She will be d/c'd home today with f/u at cancer center on Friday with prescribed blood work. (2) Thrombocytopenia Status: Chronic Hospital Course & Plan: She did receive platelets earlier in the admission. Her counts are beginning to drift back down. 07/12: She odom s14K platelets and rectal bleed and I will transfuse 2U platelets. 07/13: Platelets improved to 67K without any obvious bleed (3) Anemia due to chemotherapy Status: Chronic Hospital Course & Plan: She is scheduled to receive 2 units of red cells today. 07/13: Hb improved to 10gm (4) Hypokalemia Status: Acute Hospital Course & Plan: She is scheduled to receive a K-ridder today. 07/12: I will give her 2 KCL riders today and check her BMP 07/13: K level is normal (5) Pleural effusion Status: Chronic Hospital Course & Plan: It is relatively unchanged from last month. Departure Weight (Pounds): 130 Result Diagram: 07/13/1751707/13/17517 Condition: Improved Discharge: Home, Home Health PT/OT Follow Up For: PT For Strengthening, OT For ADL's Discharge Code Status: DNR, DNI Time Spent: < 30 min Discharge Instructions Home Meds Active Scripts Spironolactone (ALDACTONE) 25 Mg Tablet, 25 MG PO QDAY for 30 Days, #30 TAB Prov:ALIZA HITCHCOCK MD 07/13/17 Furosemide (FUROSEMIDE) 40 Mg Tablet, 1 TAB PO QDAY for 30 Days, #30 TAB Prov:ALIZA HITCHCOCK MD 07/13/17 Potassium Chloride (Potassium Chloride) 20 Meq Tablet.er, 20 MEQ PO DAILY, #30 PACK 1 Refill Prov:SARAH JENSEN MD 07/07/17 Lorazepam (ATIVAN) 0.5 Mg Tablet, 0.5 MG PO Q4-6H, #30 TAB 0 Refills Prov:SARAH JENSEN MD 06/23/17 Oxycodone Hcl (OXYCONTIN) 10 Mg Tab.er.12h, 20-30 MG PO BID, #120 TAB Take 10mg or 20 mg (1-2 tablets) every 12 hours for pain management Prov:SARAH JENSEN MD 06/23/17 Prochlorperazine Maleate (Compazine) 10 Mg Tablet, 10 MG PO Q6H, #60 TAB Prov:SARAH JENSEN MD 06/23/17 Oxycodone Hcl (OXYCODONE HCL) 5 Mg Capsule, 5 MG PO Q4-6H for PAIN, #120 CAPSULE Prov:SARAH JENSEN MD 06/23/17 Ondansetron (ZOFRAN ODT) 8 Mg Tab.rapdis, 8 MG PO Q4H Y for NAUSEA, #30 TAB Prov:JUAN CARLOS TREVIÑO DO 06/16/17 Zolpidem Tartrate (AMBIEN) 10 Mg Tablet, 1 TAB PO QHS, #30 TAB 2 Refills Prov:ANAHI GRAVES LINE THERAPIST-BC, ONC 02/18/17 Reported Medications Calcium Carbonate (TUMS) 200 Mg Tab.chew, 200 MG PO Y for HEARTBURN, TAB.CHEW 07/02/17 Omeprazole Magnesium (PRILOSEC OTC) 20 Mg Tablet., 1 TAB PO QDAY, TAB 07/02/17 Ibuprofen (IBUPROFEN) 200 Mg Tablet, 1 TAB PO Q6H, TAB 06/11/17 Sennosides/Docusate Sodium (SENNA LAXATIVE TABLET) 1 Each Tablet, 1 EACH PO DAILY 02/07/17 Denosumab (XGEVA) 120 Mg/1.7 Ml Vial, 120 MG SUBQ Q4WK for breast CA, VIAL 06/01/15 Diet: Regular Special Instructions: Follow up with cancer center on Friday Blood work as prescribed Tums 1 tab po qid Copies to: SLAVA STOKES MD; SWETHA GEE MD Venous Thromboembolism Antithrombotics Is Pt On Any Antithrombotics?: No ALIZA HITCHCOCK MD Jul 13, 2017 12:04
== END 2017-07-13 11:35 | disposition home health service (06) | DRG 640 ==
LOC: ER 12:40 → MED 18:21
PROVIDERS: ADMIT Internal Medicine; ATTEND Internal Medicine
PROC: 6A550Z2 Pheresis of Platelets, Single (ICD-10-PCS; principal; 2017-07-09)
PROC: 30233N1 Transfusion of Nonautologous Red Blood Cells into Peripheral Vein, Percutaneous Approach (ICD-10-PCS; 2017-07-11)
PROC: 30233N1 Transfusion of Nonautologous Red Blood Cells into Peripheral Vein, Percutaneous Approach (ICD-10-PCS; 2017-07-12)
PROC: 6A550Z2 Pheresis of Platelets, Single (ICD-10-PCS; 2017-07-12)
DX: E87.6 Hypokalemia (principal); K72.00 Acute and subacute hepatic failure without coma; C79.81 Secondary malignant neoplasm of breast; C79.31 Secondary malignant neoplasm of brain; C79.51 Secondary malignant neoplasm of bone; C78.7 Secondary malignant neoplasm of liver and intrahepatic bile duct; C77.3 Secondary and unspecified malignant neoplasm of axilla and upper limb lymph nodes; K62.5 Hemorrhage of anus and rectum; R18.8 Other ascites; J91.0 Malignant pleural effusion; C78.02 Secondary malignant neoplasm of left lung; C78.01 Secondary malignant neoplasm of right lung; D64.81 Anemia due to antineoplastic chemotherapy; D69.6 Thrombocytopenia, unspecified; R41.82 Altered mental status, unspecified; R10.9 Unspecified abdominal pain; R50.9 Fever, unspecified; R53.1 Weakness; Z66 Do not resuscitate; Z88.9 Allergy status to unspecified drugs, medicaments and biological substances; Z87.891 Personal history of nicotine dependence; M41.9 Scoliosis, unspecified; Z92.21 Personal history of antineoplastic chemotherapy
CPT/HCPCS: 36415; 70450; 70551; 74177; 76705; 81001; 82040; 82140; 82247; 82310; 82374; 82435; 82565; 82803; 82947; 83735; 84075; 84132; 84155; 84295; 84450; 84460; 84520; 85025; 85610; 86850; 86900; 86901; 86920; 87040; 87088; 97163; 97165; 99285; J1100; J1642; J2405; J3480; J3490; J7040; P9016; P9035; Q9967

== ENCOUNTER → 2017-07-25 | Outpatient (CLI) | payer BC, OTHER ==
[2017-07-09 11:04] VITALS: BMI 21.0
[~2017-07-25] MED LIST changes: +DENOSUMAB 120 MG/1.7 ML VIAL SUBQ ONE; +FURO-47 PO; +SPIR25TA76 PO
== END ==
LOC: SPU 08:27
PROVIDERS: ATTEND Internal Medicine Medical Oncology
DX: C50.919 Malignant neoplasm of unspecified site of unspecified female breast (principal)
CPT/HCPCS: 96372; J0897

== ENCOUNTER → 2017-08-06 | Outpatient (CLI) | payer BC, OTHER ==
[2017-07-09 11:04] VITALS: BMI 21.0
[~2017-08-06] MED LIST changes: -DENOSUMAB 120 MG/1.7 ML VIAL SUBQ ONE
== END ==
LOC: LAB 17:10
PROVIDERS: ATTEND Surgery
DX: R18.8 Other ascites (principal)
CPT/HCPCS: 88104

== ENCOUNTER → 2017-08-06 | Outpatient (CLI) | payer BC, OTHER ==
[2017-07-09 11:04] VITALS: BMI 21.0
[~2017-08-06] MED LIST changes: +IOPAMIDOL 76% 75 ML INFUS BTL 75 ML ONE
--- NOTE | 2017-08-06 15:54 | RADIOLOGY IMAGING REPORT ---
FACILITY: [facility] [place] PATIENT NAME: Kirti Olivares : 1975 MR: [id number] V: [id number] EXAM DATE: ORDERING PHYSICIAN: JUAN CARLOS ELI TECHNOLOGIST: Location: [facility] [place] Patient: Kirti Olivares : 1975 Visit/Account:[id number] Date of Sevice: 08/06/2017 Exam type: US GUIDANCE FOR THORA/PARA History: liver failure Comparison: July 31, 2017. Findings: Five sonographic images of the abdomen were submitted demonstrating at least moderate amount of ascit es. The patient's skin was marked for a paracentesis to be performed by the patient's healthcare pro vider IMPRESSION: 1. As above Report Dictated By: Sonia Heath MD at 08/06/2017 3:49 PM Report E-Signed By: Sonia Heath MD at 08/06/2017 3:50 PM WSN:[email or web address]
== END ==
LOC: RAD 14:33
PROVIDERS: ATTEND Surgery
DX: K72.90 Hepatic failure, unspecified without coma (principal)

== ENCOUNTER 2017-08-12 10:25 | Outpatient (RCR) | payer BC, OTHER ==
[2017-07-09 11:04] VITALS: BMI 21.0
--- NOTE | 2017-07-16 16:13 | ONCOLOGY CONSULTATION ---
EVENT DATE: July 15, 2017 REASON FOR REFERRAL Newly diagnosed brain metastasis. ONCOLOGY HISTORY This is a pleasant 42-year-old female who was referred to me by Dr. Sands for radiotherapy recommendations related to a newly diagnosed brain metastasis. Patient was acutely hospitalized this past week at [facility] with severe fatigue and altered mental status. During her assessment she underwent a CT of the brain which revealed suspicious lesions for metastasis. She subsequently had a noncontrast MRI scan in the hospital which revealed edema in the occipital lobe as well as edema in the left cerebellum, which would be consistent with metastatic foci. She had an additional lesion which was too small to characterize. Patient's status improved with initiation of IV Decadron after [address] Sands saw the patient in the hospital and contacted me to initiate therapy. Patient was interviewed on the phone and she was brought down to the Radiation Therapy Department for subsequent treatment. She has received three of five fractions to date with excellent tolerance. She has been out of the hospital for the last three days. She was feeling moderately lethargic for the last two days, but felt considerably better today. She received a platelet transfusion yesterday. She received RBCs in the hospital. A valid signed consent for treatment was obtained over the phone during initial visit with the patient and her . At this time I am completing a formal consultation. Patient is new to me. An extensive oncology history was reviewed and patient interviewed and examined today. Patient presently is experiencing some intermittent frontal headaches. She denies any significant imbalance today. She is not aware of any significant visual changes. Patient is complaining of some lower back pain. She states the pain can be present both with standing as well as when lying supine. She does have a history of scoliosis and she is uncertain whether the back pain is related to her cancer or to her curvature. Patient has known hepatic metastasis along with an elevated bilirubin for the last four to eight weeks. She has been receiving ongoing systemic therapy directed by Dr. Sands. Patent stats she had an immunotherapy program via trial in March of this past year. She was started on Gemzar/carbo on May. 1. 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 Tumor was left sided. Biopsy of a rib lesion confirmed metastatic disease. 2. AC+T. 3. Xgeva with enzalutamide, 2013. 4. Xgeva with enzalutamide, 2016. 5. Stereotactic radiosurgery at 50 Gy in five fractions to solitary liver metastasis, August 2016. 6. November 2016: REXAHN clinical trial. 7. February 2017: Carboplatin and gemcitabine. 8. 2017: Gemzar and carboplatin. MEDICATIONS 1. Oxycodone 20 mg b.i.d. extended release. 2. Oxycodone 5 mg q.6 hours p.r.n. breakthrough pain. 3. Calcium carbonate. 4. Potassium chloride 20 mEq q.day. 5. Lasix 40 mg q.day. 6. Spironolactone 25 mg q.day. 7. Ambien 10 mg at bedtime. 8. Zofran 8 mg q.4 hours p.r.n. nausea. ALLERGIES CODEINE. FAMILY HISTORY [*] Notable for maternal aunt who had ovarian carcinoma, and a maternal aunt with gastric carcinoma history. SOCIAL HISTORY The patient is , has one child. Nonsmoker. Lives in [place]. REVIEW OF SYSTEMS Notable for minor fatigue. Some shortness of breath with exertion, but improving. Known pleural effusions. Dry skin, but denies pruritus. Intermittent nose bleeds when platelets are low. PHYSICAL EXAMINATION GENERAL: A pleasant and alert 42-year-old female who is currently jaundiced, but otherwise stable. VITAL SIGNS: BP 119/86, pulse 92, respirations 16, O2 sat 92% on 2L nasal cannula, respirations 16. LYMPH NODES: No peripheral lymphadenopathy detected. LUNGS: Reveal diminished breath sounds at the bases bilaterally, otherwise clear. HEART: Sounds are regular with no audible murmur. ABDOMEN: Soft with mild distention. Palpable hepatomegaly is noted. EXTREMITIES: Reveal 2+ pitting edema. NEUROLOGIC: Cranial nerves intact. Normal [id number] testing. Normal strength in all extremities. Gait reasonably stable. Patient does use a walker , however, to improve stability over the last four weeks. IMPRESSION This is a pleasant 42-year-old female with metastatic breast carcinoma, newly metastatic to brain. She has had a five year history with metastatic disease requiring multiple systemic therapy treatments over that timeframe. Her present problem list includes hepatic metastasis, pleural effusions and the newly diagnosed brain lesions. The brain lesions are relatively small in my opinion. I reviewed the radiographic studies carefully. I think we will have a better visualization of the lesions with IV contrast. She was also treated for four to five days with IV Decadron and is now off the steroids. An updated study would determine if there is any evidence of residual brain edema at this time that would warrant treatment. Patient and and I reviewed her radiographic studies on the computer today including her most recent CT scan of the thorax and abdomen. Patient was symptomatic on light palpation/percussion over the lumbar spine, and this also will be worked up later this week to determine if there is a significant bone-destructive lesion at that location. If tumor is visible, I would like to deliver a potential stereotactic boost to individual small lesions either at this time or the near future for complete response. Patient asked me if I could treat the liver at this time and I said that would not be possible due to the extensive nature of her disease. There is significant hepatomegaly and a mottled appearance of the liver diffusely including the right and left lobe. I did hear verbally that Dr. Sands has compared the known studies with Radiology in [place] and there has actually been a positive response, which is encouraging. Patient's goals are to extend her survival in any and all forms. She did sign a DNR statement earlier this week, and intubation and ventilatory support would not be warranted. See exact wording of the DNR in the electronic EMR. This was the POLST form. Dr. Sands is conferring with his colleagues in [place] to determine next best steps for additional systemic treatment for this young lady. I will follow up with the patient in one week. ADDENDUM Most recent CBC on July 14, 2017 reveals hemoglobin of 12.2, hematocrit 34, white count 9.8, platelets 42,000 post transfusion. BUN 15, creatinine 0.6. AST 215, ALT 135, alk phos 433, total bilirubin 19. Addendum: 2 07/29/17: tolerated tx well 20Gy in 5 fxs to Cb and occiipital lesions, no other significant patient svcs mgr lesions at this time; palliative xrt in next planned to T12-L4 vertebrae for symptomatic pain palliation 30Gy/10fxs to start next week if blood counts stable-RT) MTDD
--- NOTE | 2017-07-18 14:32 | RADIOLOGY IMAGING REPORT ---
[place] [facility] [place] NAME: Kirti Olivares : 1975 MR: [id number] V: [id number] EXAM DATE: ORDERING PHYSICIAN: SWETHA GEE TECHNOLOGIST: Location: [facility] Patient: Kirti Olivares : 1975 Visit/Account:[id number] Date of Sevice: 07/18/2017 BRAIN W W/O CONTRAST ADDITIONAL PERTINENT HISTORY: Breast cancer with metastases COMPARISON STUDIES: MR brain July 08, 2017 TECHNIQUE: Multi-planar, multi-sequence brain MRI was performed with and without IV contrast adminis tration. Contrast: 13 mL MultiHance FINDINGS: Ventricles / sulci / fissures: Negative. Masses / hemorrhage / midline shift: There is a subtle 3 mm focus of contrast enhancement in the rig ht frontal lobe at the rodrigez-white matter junction with no significant surrounding edema consistent wi th a metastatic focus. There is a 5 mm ovoid area of contrast-enhancement in the left occipital lobe with surrounding white matter edema consistent with a metastatic focus. The degree of surrounding white matter edema is le ss when compared to the prior study. Air is a 5 mm rounded area of enhancement in the right cerebellum with minimal edema also consistent with a metastatic focus. There is significantly less edema when compared to the prior study.. There Is a tiny focus of increased T2 signal intensity in the white matter just above the atrium of the right lateral ventricle that appears relatively unchanged. There is no associated contrast enhan cement or mass effect. There is blooming on the gradient echo images consistent with an old tiny hem orrhage possibly an incidental cavernoma. No new intracranial lesions are identified when compared the prior study White matter: As above Rodrigez-white differentiation: Normal. Extra-axial fluid collections: Negative. Intracranial vasculature and dural sinuses: Negative. Skull base / calvarium: There are patchy areas of contrast-enhancement seen throughout the calvarium concerning for possible osseous metastases. Visualized mastoid air cells / paranasal sinuses: There Is mild mucosal thickening in the ethmoid sin uses extensive mucosal thickening in the left maxillary sinus and small air-fluid levels in the maxil michael sinuses bilaterally Orbits: Negative. Upper neck: There is decreased signal intensity seen in C2 and C3. Metastatic disease in this locati on not entirely ruled out IMPRESSION: Enhancing intracranial metastases are identified in the right frontal lobe left occipital lobe and ri ght cerebellum. There is less surrounding white matter edema. No new metastatic foci are identified within the brain parenchyma. Probable old tiny hemorrhage in the white matter just above the atria of the right lateral ventricle. Differential diagnosis would include an incidental cavernoma Patchy areas of contrast-enhancement throughout the calvarium are concerning for osseous metastases. Abnormal decreased signal in C3 and C2 may represent additional metastatic foci although MR the cerv ical spine may be helpful for further evaluation depending upon the clinical presentation Report Dictated By: Sonia Heath MD at 07/18/2017 2:13 PM Report E-Signed By: Sonia Heath MD at 07/18/2017 2:28 PM WSN:[id number]
--- NOTE | 2017-07-22 12:42 | RADIOLOGY IMAGING REPORT ---
FACILITY: [facility] PATIENT NAME: Kirti Olivares : 1975 MR: [id number] V: [id number] EXAM DATE: ORDERING PHYSICIAN: SWETHA GEE TECHNOLOGIST: Location: [facility] Patient: Kirti Olivares : 1975 Visit/Account:[id number] Date of Sevice: 07/22/2017 EXAMINATION: L SPINE W W/O CONTRAST INDICATION: Metastatic breast cancer COMPARISON: CT June 13, 2017 TECHNIQUE: Multiplane MR imaging was performed through the lumbar spine without and with contrast. 1 3 ml multihance injected. FINDINGS: Vertebral body height: Normal vertebral body heights. Conus position/signal: Normal Marrow signal: Diffuse low T1 marrow signal. Marrow heterogeneity on the additional sequences and he terogeneous marrow enhancement on postcontrast acquisitions within the vertebral bodies and posterior elements as well as the sacrum and iliac bones. Small enhancing lesion within the posterior aspect of the T12 spinous process in keeping with a focal metastatic lesion. The otherwise heterogeneous ma rrow enhancement is concerning for diffuse infiltrative metastatic disease. Extraspinal structures including psoas muscles/paraspinal soft tissues: Metastatic disease in the clara er is partially imaged. Other: No pathologic enhancement in the canal. L1-2: Normal L2-3: Normal. L3-4: Normal L4-5: Normal L5 S1: Normal IMPRESSION: Diffuse infiltrative metastatic disease throughout the vertebral bodies and posterior elements as wel l as within the visualized sacrum and iliac bones. No soft tissue extension into the canal. No canal narrowing or cord compression. No wedge compression deformities or pathologic fracture. Report Dictated By: George Sorensen MD at 07/22/2017 12:28 PM Report E-Signed By: George Sorensen MD at 07/22/2017 12:37 PM WSN:[id number]
--- NOTE | 2017-07-23 16:23 | ONCOLOGY FOLLOW UP NOTE ---
EVENT DATE: July 22, 2017 REASON FOR EVALUATION Persistent back pain. Radiographic findings of significant tumor involvement of the T12 vertebra. INTERVAL HISTORY A complete H and P was recently dictated two weeks ago on this patient. She is a 42-year-old female with metastatic breast carcinoma to liver and bone. Today's visit was for the purpose of reviewing an MRI of the brain with IV contrast. The study reveals there are no new lesions that were outside of the radiation field. She has two small lesions that have been covered with the first course of radiotherapy at 20 Gy in five fractions. These lesions are in the right cerebellum at 5 mm, left occipital lobe at 5 mm. Edema has decreased compared to the prior study. There is a subtle 3 mm abnormality along the right fontal lobe at the philip white matter junction of uncertain significance. This area will be followed. The MRI scan of the L-spine reveals a mottled appearance of the bone at multiple levels including the sacrum. There is a significant edema of bone as well as signal abnormality involving the spinous process in the body of the T12. Fortunately there are no signs of impending spinal cord impingement. Patient is recovering her bone marrow function fairly well. CBC on July 17 reveals a hemoglobin of 9.1, white count of 4.7, platelets 59,000. CMP was also performed this week, with a bilirubin remaining high at 14-15. Electrolytes appear to be in balance after replacement of magnesium earlier today. BUN and creatinine are normal at 12 and 0.6. For pain the patient is taking OxyContin 10 mg tablets two tablets p.o. q.12 hours. She does have immediate-release Oxycodone, but prefers to hold that most of the time. Clinical examination was notable for focal tenderness on light percussion over the L-spine. No sensory level was identified. No motor weakness. Lungs are clear bilaterally. No peripheral lymphadenopathy. Patient has moderate abdominal distention from hepatomegaly. Extremities reveal 3+ pitting edema. IMPRESSION AND PLAN 1. Metastatic breast carcinoma to liver and bone. Patient has successfully completed a five-day course of radiotherapy to the occipital lobe and cerebellum. I feel this is adequate at this time. The lesion should continue to get smaller over the next eight to 12 weeks. I would recommend a follow-up MRI scan of the brain in 12 weeks. 2. Patient is having persistent back pain, both with exertion and at rest. Pain appears to be related to the T12 vertebral body with significant signal abnormality on recent MRI. My plan is to deliver an abbreviated course of radiotherapy to this site. I initially was considering an 800 cGy times one fraction. I decided against this as the liver is directly anterior as well as the stomach at that location and there would be a risk of gastritis. I will decrease the radiation dose to a standard palliative fractionation of 30 Gy in 10 fractions. Tentatively with an APPA technique to the mid vertebral body. Simulation and treatments will start within seven days. All questions were answered to the patient's satisfaction as well as her 's over a 60-minute appointment. I also added hydroxyzine 10 mg one to two tablets at bedtime p.r.n pruritus as a therapeutic trial. (addendum 07-29-17 field adjusted based on bone windows and pain correlation to include T12-L2 30Gy in 10 fxs). MTDD
[~2017-08-12 10:25] MED LIST changes: +GADOBENATE 529MG/1ML 15ML VIAL IVP ONE; -IOPAMIDOL 76% 75 ML INFUS BTL 75 ML ONE
[2017-08-21] MEDS ORDERED: LAC10L PO (14:52)
[2017-08-21] MEDS ORDERED: OXYC-823 PO (21:28)
== END 2017-08-20 13:10 | disposition home or self-care (01) ==
LOC: RAON 10:25
PROVIDERS: ATTEND Radiology Radiation Oncology
DX: Z51.0 Encounter for antineoplastic radiation therapy (principal); C50.919 Malignant neoplasm of unspecified site of unspecified female breast; C79.31 Secondary malignant neoplasm of brain; J90 Pleural effusion, not elsewhere classified; E87.6 Hypokalemia; Z17.1 Estrogen receptor negative status [ER-]; C79.51 Secondary malignant neoplasm of bone
CPT/HCPCS: 70553; 72158; 77280; 77290; 77295; 77300; 77334; 77336; 77412; 99212; A9577

== ENCOUNTER 2017-08-21 09:00 | Outpatient (RCR) | payer BC, OTHER ==
[2017-05-29 12:16] LABS: PLATELET COUNT, AUTOMATED 312 K/uL (150-450)
[2017-06-12] MEDS: NS(*) 0.9% 500 ML BAG 500 ML IV PRN (11:45)
[2017-06-12 12:27] VITALS: BP 137/82
[2017-06-12] MEDS: DEXAMETHASONE SOD PHOS 10MG/ML IVP PRN (12:56)
[2017-06-12] MEDS: PALONOSETRON 0.25 MG/5 ML VIAL IVP PRN (12:56)
[2017-06-12] MEDS: FOSAPREPITANT DIM 150 MG/5 ML 150 MG in NS(*) 0.9% 250 ML BAG 245 ML IVPB PRN (13:22)
[2017-06-12] MEDS: HEPARIN FLSH (PORT) 500 UN/5ML IVP PRN (16:07)
[2017-06-12 16:08] VITALS: BP 106/72
[2017-06-13 09:34] VITALS: BP 126/78
[2017-06-13] MEDS: LIDOCAINE/SOD BICARB 8.4% SYR ID PRN (09:55)
[2017-06-13] MEDS: NS(*) 0.9% 500 ML BAG 500 ML IV PRN ×2 (09:55→10:36)
[2017-06-13] MEDS: HEPARIN FLSH (PORT) 500 UN/5ML IVP PRN (09:56)
[2017-06-18 08:25] VITALS: BP 123/76
[2017-06-18 09:03] LABS: PLATELET COUNT, AUTOMATED 27 K/uL (150-450)
--- NOTE | 2017-06-18 15:33 | ONCOLOGY FOLLOW UP NOTE ---
EVENT DATE: June 18, 2017 REASON FOR FOLLOWUP Metastatic triple negative breast cancer. CHIEF COMPLAINT Fatigue, shortness of breath. INTERIM HISTORY Kirti returns to clinic for a follow-up visit today. She is accompanied by her . Since our last visit, she had been taking part in a clinical trial at the [facility], but unfortunately there were signs of progression of disease, with imaging to confirm progression. She has since returned to [place]. She was just discharged from the hospital here in [place] , and she is known at this time to have a significant burden of metastatic disease in the liver, as well as development of new pleural effusions. She is currently on supplemental oxygen, and she has been requiring pain medications at home to keep things controlled. Because of the rapid progression of her triple negative breast cancer, the decision was made to have her receive carboplatin and gemcitabine, as she had received previously with good response. She received her day one chemotherapy six days ago. She reports that things have gone okay in this regard, but she is not able to tell much difference overall in the way that she feels. She has had labs drawn today. The tentative plan has been to have her move forward with day eight gemcitabine tomorrow. REVIEW OF SYSTEMS Otherwise negative, with the exception of lower extremity swelling, as well as abdominal pain and distention. ONCOLOGY HISTORY ONCOLOGY HISTORY Triple negative breast cancer. * Initial diagnosis in July of 2012 with biopsy of a left breast 7 o'clock lesion. Pathology showed a grade III invasive ductal carcinoma, triple negative , Ki-67=30%. Staging scans revealed a bone metastasis involving rib. Biopsy of the rib lesion was consistent with metastatic breast cancer. She was initially treated with dose-dense AC followed by Taxol for a total of eight cycles with reported good clinical response, but increased bone metastasis. She was started on Xgeva and enzalutamide at that time as part of the DISHA 3100- 11 clinical trial (April 2013). She has tolerated enzalutamide remarkably well at 160 mg p.o. daily. * August 2014: CT of chest, abdomen and pelvis and bone scan showed stable findings. * In 2014, the patient moved to [place]. * November 22, 2014: CT of chest, abdomen and pelvis showed stable findings in comparison to August 2014 study. * July 10, 2016: CT scan reportedly shows new liver lesion measured at 11 mm and a 6 mm right lower lobe lung nodule. CT-PET scan was ordered. * Recent CT-PET scan reportedly shows hypermetabolic activity of this solitary liver lesion. * Current plan is for ablative procedure in Interventional Radiology with continuation of enzalutamide and Xgeva. * Focal therapy to liver metastasis via Interventional Radiology methods felt to be less than optimal, external beam radiotherapy recommended. * September 03, 2016 to October 01, 2016: Stereotactic body radiation therapy to solitary liver metastasis performed, 5000 cGy in five fractions. * October 07 017: Nuclear Medicine bone scan reveals multifocal bony metastatic disease with progression from prior study, concern for lesion in mid shaft of femur notable. * November 22, 2016: Enrollment on Rexahn clinical trial (p68 RNA helicase inhibitor). * January 10, 2017: CT scan reveals evidence of progression of disease. * February 21, 2017: Patient begins palliative carboplatin and gemcitabine. * April 11, 2016: Plan is to begin immunotherapy trial at [facility] with Dr. Christian Kidd. * Follow-up imaging in the [facility] revealing evidence of significant progression of disease. Patient stops clinical trial. CURRENT MEDICATIONS 1. Zofran p.r.n. 2. Ibuprofen p.r.n. 3. OxyContin. 4. Compazine p.r.n. 5. Oxycodone p.r.n. 6. Ambien. 7. Senna p.r.n. 8. Xgeva. ALLERGIES CODEINE. SOCIAL HISTORY The patient is a nonsmoker. There is no history of alcohol abuse or illicit drug use. She lives here in [place]. FAMILY HISTORY There is a history of gastric cancer in a maternal aunt and another maternal aunt was diagnosed with ovarian cancer. VITAL SIGNS Temperature is 98.8, blood pressure 123/76, heart rate is 125, respirations 116 , oxygen saturation is 93% on 1L nasal cannula. PHYSICAL EXAMINATION GENERAL: Patient is alert and oriented times three, in no apparent distress, sitting in the exam room chair. She does appear quite tired, and is at times sleepy. HEENT: Exam reveals slightly anicteric sclerae. NEUROLOGIC: Exam is grossly nonfocal, although I did not test her gait today. EXTREMITIES: Exam reveals edema of the bilateral lower extremities, but no particular erythema or tenderness to palpation. SKIN: Exam reveals no concerning rash or lesion. LABORATORY STUDIES From this morning reveal of pertinence: Sodium of 129, creatinine 0.6, calcium 9.8, total bilirubin 4.3, AST 647, ALT 230, albumin 2.4, alk phos 711. INR is currently pending. White blood cell count 3200, hemoglobin 11.5, platelet count 27,000. IMAGING Reviewed per the [facility] record. ASSESSMENT AND PLAN Progressive metastatic triple negative breast cancer. I had a lengthy, in depth , and very difficult discussion with Kirti and her today. We spent time discussing recent events, to include progression of her breast cancer while on clinical trial, chemotherapy six days ago with carboplatin and gemcitabine, recent hospitalization, as well as blood transfusion for symptomatic anemia. Kirti currently is on supplemental oxygen, but her breathing is comfortable. She has known bilateral pleural effusions. She has been on a fairly stable regimen of pain medication, and is somewhat sleepy today, but her pain is controlled. She was able to be an active part of today's discussion. Today, we discussed the very serious situation that she faces. She has received chemotherapy once again in an effort to try to gain semblance of control of the progression of her cancer. Unfortunately although she is only one week into her chemotherapy, we are seeing progressive worsening of her liver function. Her bilirubin is rising, as are her transaminases and alkaline phosphatase. Her INR is currently pending. Her performance status at this point is good enough to allow for chemotherapy, but as discussed, I will need to review her situation with Pharmacy, as well as colleagues to review dosing of her chemotherapy. She is aware with today's discussion that are therapeutic window is narrow, but that if she does not have response to her current chemotherapy, I am quite concerned that her liver function will worsen to the point that her performance status will dwindle substantially, and that she will no longer be a candidate for chemotherapy. In addition, for any kind of switch in her systemic therapy, I would be concerned for preauthorization delays, and inability to give chemotherapy in an effective window of time. We also discussed today that quality of life should remain of high priority, and we discussed that hospice care unfortunately may have to be considered if we do not see any response to her chemotherapy moving forward. This was understandably extraordinarily difficult for Kirti to hear. We also moved on to discuss code status, and we were able to get into very significant detail. DNR status is certainly reasonable, and I have recommended that she give this serious thought today. She understands, however, that this will not necessarily directly impact any decisions made from a chemotherapy standpoint. Our capacity to administer chemo will depend on her performance status, and what is happening with her liver function and other labs. In addition, she has developed cytopenias, with a platelet count of 27,000 this morning. She does not have signs or symptoms to suggest bleeding. It is quite possible and likely that she would require additional blood products, with further chemotherapy. I have recommended that Kirti have very regular followup here in the Cancer Center, at least Friday, Friday and Friday to touch base and check her labs. Once we have her plans finalized from the standpoint of chemotherapy, I would hope to have her receive an infusion again tomorrow. I will plan to have her followup with me during my next visit to [place], and as discussed with she and her today, I will be available by phone in the meantime. Kirti and her had several insightful and appropriate questions for me today, I believe I answered all of their questions to their satisfaction. I spent a total of 50 minutes of time face to face with the patient today. Of this time, 45 minutes was spent in direct counseling and coordination of care. JENNIFER
[2017-06-19 12:42] VITALS: BP 110/80
[2017-06-19] MEDS: DEXAMETHASONE SOD PHOS 10MG/ML IVP PRN (13:29)
[2017-06-19] MEDS: PALONOSETRON 0.25 MG/5 ML VIAL IVP PRN (13:29)
[2017-06-19 16:24] VITALS: BP 101/60
[2017-06-19 16:41] VITALS: BP 107/71
[2017-06-19 17:06] VITALS: BP 100/66
[2017-06-19] MEDS: HEPARIN FLSH (PORT) 500 UN/5ML IVP PRN (17:12)
[2017-06-20 10:10] VITALS: BP 116/72
[2017-06-20] MEDS: LIDOCAINE/SOD BICARB 8.4% SYR ID PRN (10:57)
[2017-06-20 11:12] LABS: INR 1.26
[2017-06-20] MEDS: HEPARIN FLSH (PORT) 500 UN/5ML IVP PRN (12:42)
[2017-06-23 12:58] VITALS: BP 108/42
[2017-06-23 13:20] LABS: INR 1.36
[2017-06-23 14:10] LABS: PLATELET COUNT, AUTOMATED 15 K/uL (150-450)
[2017-06-23] MEDS: LIDOCAINE/SOD BICARB 8.4% SYR ID PRN (14:19)
[2017-06-23 15:59] VITALS: BP 107/98
[2017-06-23 16:12] VITALS: BP 96/48
[2017-06-23 16:53] VITALS: BP 102/64
[2017-06-23] MEDS: HEPARIN FLSH (PORT) 500 UN/5ML IVP PRN (17:00)
--- NOTE | 2017-06-24 19:38 | ONCOLOGY FOLLOW UP NOTE ---
EVENT DATE: June 23, 2017 CHIEF COMPLAINT/REASON FOR VISIT Mrs. Olivares is a 42-year-old female with metastatic triple negative breast cancer, here for followup. INTERIM HISTORY Kirti and her return. The patient is currently on palliative carboplatin and gemcitabine and received the last dose last . She was previously treated with good response, however, we are seeing an increasing bilirubin, which may be due to progressive disease or toxicity. At the visit with Dr. Sands last week they wanted to continue, after discussion about goals of care, pursuing hospice versus aggressive therapy. They continue to wish to manage side effects and then see how her disease and treatment evolve. We spent an extensive amount of time discussing nausea and pain control and made adjustments to her regimen. ONCOLOGY HISTORY Triple negative breast cancer. * Initial diagnosis in July of 2012 with biopsy of a left breast 7 o'clock lesion. Pathology showed a grade III invasive ductal carcinoma, triple negative , Ki-67=30%. Staging scans revealed a bone metastasis involving rib. Biopsy of the rib lesion was consistent with metastatic breast cancer. She was initially treated with dose-dense AC followed by Taxol for a total of eight cycles with reported good clinical response, but increased bone metastasis. She was started on Xgeva and enzalutamide at that time as part of the 3100- 11 clinical trial (April 2013). She has tolerated enzalutamide remarkably well at 160 mg p.o. daily. * August 2014: CT of chest, abdomen and pelvis and bone scan showed stable findings. * In 2014, the patient moved to [place]. * November 22, 2014: CT of chest, abdomen and pelvis showed stable findings in comparison to August 2014 study. * July 10, 2016: CT scan reportedly shows new liver lesion measured at 11 mm and a 6 mm right lower lobe lung nodule. CT-PET scan was ordered. * Recent CT-PET scan reportedly shows hypermetabolic activity of this solitary liver lesion. * Current plan is for ablative procedure in Interventional Radiology with continuation of enzalutamide and Xgeva. * Focal therapy to liver metastasis via Interventional Radiology methods felt to be less than optimal, external beam radiotherapy recommended. * September 03, 2016 to October 01, 2016: Stereotactic body radiation therapy to solitary liver metastasis performed, 5000 cGy in five fractions. * October 07 017: Nuclear Medicine bone scan reveals multifocal bony metastatic disease with progression from prior study, concern for lesion in mid shaft of femur notable. * November 22, 2016: Enrollment on Rexahn clinical trial (p68 RNA helicase inhibitor). * January 10, 2017: CT scan reveals evidence of progression of disease. * February 21, 2017: Patient begins palliative carboplatin and gemcitabine. * April 11, 2016: Plan is to begin immunotherapy trial at [facility] with Dr. Christian Kidd. * Follow-up imaging in the [facility] revealing evidence of significant progression of disease. Patient stops clinical trial. CURRENT MEDICATIONS 1. Zofran p.r.n. 2. Ibuprofen p.r.n. 3. OxyContin. 4. Compazine p.r.n. 5. Oxycodone p.r.n. 6. Ambien. 7. Senna p.r.n. 8. Xgeva. ALLERGIES CODEINE. SOCIAL HISTORY The patient is a nonsmoker. There is no history of alcohol abuse or illicit drug use. She lives here in [place]. FAMILY HISTORY There is a history of gastric cancer in a maternal aunt and another maternal aunt was diagnosed with ovarian cancer. REVIEW OF SYSTEMS CONSTITUTIONAL: Positive fatigue, positive weight change. Poor p.o. intake. HEENT: Positive headache, mild. No visual changes. CARDIOVASCULAR: No chest pain, dyspnea on exertion, edema. RESPIRATORY: No shortness of breath, wheeze or cough. ABDOMEN: Positive distention, pain, palpable masses. EXTREMITIES: No edema SKIN: No concerning rashes. Positive jaundice and scleral icterus. NEUROLOGIC: No focal deficits currently. MUSCULOSKELETAL: Positive global weakness, fatigue. ENDOCRINE: No heat or cold intolerance. PSYCHIATRIC: No anxiety or depression currently. She is grieving this diagnosis as expected though. Remainder of 14-point review of systems otherwise negative. PHYSICAL EXAMINATION VITAL SIGNS: Blood pressure 108/42, pulse 114, respiratory rate 20, oxygen saturation 92% on 2L. Temperature 98 Fahrenheit. Pain 6/10, fatigue significant. GENERAL: In stable condition hemodynamically. Chronically ill-appearing female. HEENT: Positive scleral icterus. SKIN: Positive jaundice. No significant bruising currently. CARDIOVASCULAR: Borderline tachycardia. ABDOMEN: Soft, distended. Diffusely tender, mild. Palpable masses I believe and hepatomegaly. Probable splenomegaly as well, although this may be the liver. EXTREMITIES: Significant edema. ECOG performance status of 2 today. Remainder of physical exam deferred. IMPRESSION AND PLAN Kirti is a pleasant 42-year-old female with the followin. Aggressive progressive metastatic triple negative breast cancer. 2. Acute liver failure, likely due to cancer, but also may be related to chemotherapy as well. 3. Goals of care discussion. 4. Nausea. Will add as-needed Compazine and Ativan. 5. Pain due to cancer. We will increase her OxyContin to 20-30 mg twice daily , as well as refill her other pain medication. Discussed constipation management as well, and encouraged her to bring back the MiraLax. After her labs returned I went back to advise them regarding the elevated bilirubin and we will need to see how this progresses later this week. Discussed the case with Dr. Sands on the phone today as well. I answered all of their questions. Billing: Total time 50 minutes. Counseling time and coordination of care time 30 minutes. High risk, high complexity. MTDD
[2017-06-25] MEDS: LIDOCAINE/SOD BICARB 8.4% SYR ID PRN (09:30)
[2017-06-25 09:37] VITALS: BP 108/76
[2017-06-25] MEDS: NS(*) 0.9% 500 ML BAG 500 ML IV PRN ×2 (09:45→10:15)
[2017-06-25 10:09] LABS: INR 1.31
[2017-06-25] MEDS: HEPARIN FLSH (PORT) 500 UN/5ML IVP PRN (13:45)
[2017-06-27 12:02] LABS: INR 1.35
[2017-06-27] MEDS: LIDOCAINE/SOD BICARB 8.4% SYR ID PRN (12:30)
[2017-06-27] MEDS: NS(*) 0.9% 500 ML BAG 500 ML IV PRN (15:30)
[2017-06-27 15:52] VITALS: BP 104/60
[2017-06-27 16:11] VITALS: BP 109/71
[2017-06-27 16:56] VITALS: BP 101/69
[2017-06-27] MEDS: HEPARIN FLSH (PORT) 500 UN/5ML IVP PRN (17:08)
[2017-06-30] MEDS: LIDOCAINE/SOD BICARB 8.4% SYR ID PRN (11:32)
[2017-06-30 12:12] VITALS: BP 102/68
[2017-06-30 12:15] LABS: PLATELET COUNT, AUTOMATED 80 K/uL (150-450)
[2017-06-30 12:33] LABS: INR 1.48
[2017-06-30] MEDS: NS(*) 0.9% 500 ML BAG 500 ML IV PRN (15:00)
[2017-06-30] MEDS: HEPARIN FLSH (PORT) 500 UN/5ML IVP PRN (17:04)
[2017-07-02 10:19] VITALS: BP 112/74
[2017-07-02] MEDS: LIDOCAINE/SOD BICARB 8.4% SYR ID PRN (10:34)
[2017-07-02 10:55] LABS: INR 1.57
[2017-07-02] MEDS: HEPARIN FLSH (PORT) 500 UN/5ML IVP PRN (12:00)
[2017-07-03] MEDS: NS(*) 0.9% 500 ML BAG 500 ML IV PRN (09:15)
[2017-07-03] MEDS: LIDOCAINE/SOD BICARB 8.4% SYR ID PRN (09:34)
[2017-07-03] MEDS: DEXAMETHASONE SOD PHOS 10MG/ML IVP PRN (09:35)
[2017-07-03] MEDS: PALONOSETRON 0.25 MG/5 ML VIAL IVP PRN (09:35)
[2017-07-03] MEDS: FOSAPREPITANT DIM 150 MG/5 ML 150 MG in NS(*) 0.9% 250 ML BAG 245 ML IVPB PRN (09:53)
[2017-07-03] MEDS: HEPARIN FLSH (PORT) 500 UN/5ML IVP PRN (12:14)
[2017-07-03 12:15] VITALS: BP 108/75
[2017-07-04 09:44] VITALS: BP 122/79
[2017-07-04 10:05] LABS: PLATELET COUNT, AUTOMATED 197 K/uL (150-450)
[2017-07-04 10:26] LABS: INR 1.89
[2017-07-07] VITALS (7 sets, daily range): BP systolic 99–116; BP diastolic 65–85
[2017-07-07] MEDS: NS(*) 0.9% 500 ML BAG 500 ML IV PRN (09:30)
[2017-07-07] MEDS: LIDOCAINE/SOD BICARB 8.4% SYR ID PRN (09:30)
[2017-07-07 10:08] LABS: PLATELET COUNT, AUTOMATED 84 K/uL (150-450)
[2017-07-07 10:53] LABS: INR 1.81
[2017-07-07] MEDS: HEPARIN FLSH (PORT) 500 UN/5ML IVP PRN (17:00)
--- NOTE | 2017-07-08 18:34 | ONCOLOGY FOLLOW UP NOTE ---
EVENT DATE: July 07, 2017 CHIEF COMPLAINT/REASON FOR VISIT Ms. Olivares is a pleasant 42-year-old female on carboplatin and gemcitabine for metastatic triple negative breast cancer. HISTORY OF PRESENT ILLNESS/INTERIM HISTORY Kirti and her return. She continues the palliative carboplatin and gemcitabine and received her last dose last , July 03. Her bilirubin has increased to around 10 and remains stable there. We discussed at the last visit with me as well as with the last visit with Dr. Sands that they want to continue aggressive therapy instead of pursuing hospice. We continue to manage side effects aggressively. After he last treatment she felt better for about 10 days, but then is now at the low in terms of her side effects. She requires blood today and also potassium. She is going to need potassium at home and we will arrange for this. Again discussed their goals, and they would like to proceed with therapy, and they believe her next dose is scheduled for this . I would like her to see Dr. Sands at his next visit here. ONCOLOGY HISTORY Triple negative breast cancer. * Initial diagnosis in July of 2012 with biopsy of a left breast 7 o'clock lesion. Pathology showed a grade III invasive ductal carcinoma, triple negative , Ki-67=30%. Staging scans revealed a bone metastasis involving rib. Biopsy of the rib lesion was consistent with metastatic breast cancer. She was initially treated with dose-dense AC followed by Taxol for a total of eight cycles with reported good clinical response, but increased bone metastasis. She was started on Xgeva and enzalutamide at that time as part of the [facility] 3100- 11 clinical trial (April 2013). She has tolerated enzalutamide remarkably well at 160 mg p.o. daily. * August 2014: CT of chest, abdomen and pelvis and bone scan showed stable findings. * In 2014, the patient moved to [place]. * November 22, 2014: CT of chest, abdomen and pelvis showed stable findings in comparison to August 2014 study. * July 10, 2016: CT scan reportedly shows new liver lesion measured at 11 mm and a 6 mm right lower lobe lung nodule. CT-PET scan was ordered. * Recent CT-PET scan reportedly shows hypermetabolic activity of this solitary liver lesion. * Current plan is for ablative procedure in Interventional Radiology with continuation of enzalutamide and Xgeva. * Focal therapy to liver metastasis via Interventional Radiology methods felt to be less than optimal, external beam radiotherapy recommended. * September 03, 2016 to October 01, 2016: Stereotactic body radiation therapy to solitary liver metastasis performed, 5000 cGy in five fractions. * October 07 017: Nuclear Medicine bone scan reveals multifocal bony metastatic disease with progression from prior study, concern for lesion in mid shaft of femur notable. * November 22, 2016: Enrollment on [employer] clinical trial (p68 RNA helicase inhibitor). * January 10, 2017: CT scan reveals evidence of progression of disease. * February 21, 2017: Patient begins palliative carboplatin and gemcitabine. * April 11, 2016: Plan is to begin immunotherapy trial at [facility] with Dr. Christian Kidd. * Follow-up imaging in the [facility] revealing evidence of significant progression of disease. Patient stops clinical trial. CURRENT MEDICATIONS 1. Zofran p.r.n. 2. Ibuprofen p.r.n. 3. OxyContin. 4. Compazine p.r.n. 5. Oxycodone p.r.n. 6. Ambien. 7. Senna p.r.n. 8. Xgeva. ALLERGIES CODEINE. SOCIAL HISTORY The patient is a nonsmoker. There is no history of alcohol abuse or illicit drug use. She lives here in [place]. FAMILY HISTORY There is a history of gastric cancer in a maternal aunt and another maternal aunt was diagnosed with ovarian cancer. REVIEW OF SYSTEMS CONSTITUTIONAL: Positive fatigue, positive weight change. Poor p.o. intake. HEENT: Positive headache, mild. No visual changes. CARDIOVASCULAR: No chest pain, dyspnea on exertion, edema. RESPIRATORY: No shortness of breath, wheeze or cough. ABDOMEN: Positive distention, pain, palpable masses. EXTREMITIES: No edema SKIN: No concerning rashes. Positive jaundice and scleral icterus. NEUROLOGIC: No focal deficits currently. MUSCULOSKELETAL: Positive global weakness, fatigue. ENDOCRINE: No heat or cold intolerance. PSYCHIATRIC: No anxiety or depression currently. She is grieving this diagnosis as expected though. Remainder of 14-point review of systems otherwise negative. PHYSICAL EXAMINATION VITAL SIGNS: Blood pressure 105/79, pulse 123, respiratory rate 16, temperature 98.1 Fahrenheit, oxygen saturation 98% on 3L. Pain 0/10, fatigue significant. GENERAL: In stable condition resting comfortably in the chair. Chronically ill -appearing female. ECOG performance status of 2. HEENT: Positive scleral icterus. SKIN: Positive jaundice. CARDIOVASCULAR: Tachycardic. ABDOMEN: Soft and distended. Mild diffuse tenderness. EXTREMITIES: With 3+ edema, and will give Lasix between her transfusions, as well as add potassium. Remainder of physical exam deferred. IMPRESSION AND PLAN Kirti is a pleasant 42-year-old female with the followin. Aggressive, progressive metastatic triple negative breast cancer. 2. Acute liver failure due to cancer and chemotherapy. Overall stable. Hopeful that we can treat the cancer sufficiently to turn this around. 3. Goals of care discussion. 4. The nausea and pain seem to be better controlled. We will continue the regimen outlined on my note on June 23 with as-needed Compazine, Ativan and Zofran for nausea, as well as an increase in the OxyContin. Billing: Return visit level 3. Total time 20 minutes, counseling time 15. MTDD
[2017-07-09 11:04] VITALS: Ht 167.6 cm; Wt 64.1 kg
--- NOTE | 2017-07-10 21:10 | ONCOLOGY FOLLOW UP NOTE ---
EVENT DATE: July 10, 2017 SUBJECTIVE Kirti reports that she is feeling a little better today, and her family has noticed some improvement over the past couple of days in the hospital. To review, Kirti had presented with altered mental status, and given concern for possible hepatic encephalopathy, she was admitted to the hospital. She has undergone imaging with CT scan of the abdomen and pelvis, and she has also had a CT scan and MRI of the brain. The CT of the abdomen and pelvis shows relative stability of her known significant hepatic metastatic disease from her triple negative breast cancer. Her brain MRI has revealed three, perhaps four metastatic lesions in the brain. She has been appropriately started on dexamethasone with improvement in her overall status. This morning, Kirti reports that she is quite tired. Pain seems to be well controlled. She ate breakfast this morning, and she has not been nauseated. She denies fever. She is significantly jaundiced. VITAL SIGNS Patient is afebrile and vital signs are stable. PHYSICAL EXAMINATION GENERAL: Patient is alert and oriented times three lying in the hospital bed, although she does appear sleepy at times. She is interactive and pleasant. She is answering questions appropriately. HEENT: Exam reveals very icteric sclerae. No significant oropharyngeal lesions. NEUROLOGIC: Exam is grossly normal, although I did not test her gait today. EXTREMITIES: Exam reveals some edema of the lower extremities. SKIN: Exam reveals no rash, but she is jaundiced. LABORATORY STUDIES Reviewed per the [facility] record. IMAGING Please see history of present illness. ASSESSMENT AND PLAN 1. Metastatic triple negative breast cancer. I had a good visit with Kirti, her , and her sister at bedside today. We spent time going back over our last visit in the clinic, at which time we had urgently restarted her on carboplatin and gemcitabine due to concerns for very substantial progression of her triple negative breast cancer. She has received her first cycle of gemcitabine and carboplatin, and she has tolerated it remarkably well. She has had cytopenias, both preexisting and due to her chemotherapy. She has obvious ongoing evidence of liver dysfunction. She received a unit of platelets due to concern for thrombocytopenia and the new lesions in the brain. She seems to have shown some improvement over the past couple of days, and this is likely due to corticosteroid effect, and decrease in vasogenic edema surrounding her metastatic brain lesions. I have reviewed her situation with Radiation Oncology , and given her improvement in performance status with corticosteroid, I would hope that we could entertain the possibility of palliative radiation to these lesions. In terms of plans for systemic therapy, this will largely depend on her performance status. If she does have ongoing improvement to the point where she can return home, if her labs will allow, I do think we can proceed with her second cycle of chemotherapy, given the stability noted on her follow- up CT scan. I am concerned, however, in the worsening of her liver function studies. There does not seem to be an obvious biliary obstruction on the CT scan. I have recommended that we review her situation at multidisciplinary conference on Friday. I will be back in touch with Kirti and her family after the recommendations from the conference are known. We also discussed issues pertaining end of life today. She has not discussed anything further beyond our initial discussion in the clinic a few weeks ago. I have implored her family to do so. Our certified social workers in health care was present for today's visit. We discussed the utility of the Five Wishes and the Most Form. We discussed her code status again, and initially during our visit she expressed the interest in being full code, and to have one resuscitative effort, but none further. We again discussed that with any resuscitative effort, or with Kirti on a ventilator, or with any type of cardiovascular instability, we will have zero options when it comes to treating her for her cancer. This does translate into a lack of capacity to improve her situation at all to the point where she could be liberated from such intensive support. I do think that DNR status is quite appropriate for her. The patient's sister does seem motivated to discuss things further with Kirti and her . Kirti and her family had several further questions for me today, and I believe I answered all of their questions to their satisfaction. I will tentatively plan to see her during my next trip to [place]. Please do not hesitate to call if any questions or concerns. My cell phone number is [phone]. [facility]
[2017-07-14 10:23] LABS: INR 1.47
[2017-07-14 10:35] LABS: PLATELET COUNT, AUTOMATED 42 K/uL (150-450)
[2017-07-16] MEDS: LIDOCAINE/SOD BICARB 8.4% SYR ID PRN (10:00)
[2017-07-16 10:17] LABS: PLATELET COUNT, AUTOMATED 25 K/uL (150-450)
[2017-07-16 10:23] VITALS: BP 115/81
[2017-07-16 10:24] VITALS: BP 115/81
[2017-07-16 10:29] LABS: INR 1.64
[2017-07-16] MEDS: NS(*) 0.9% 100 ML BAG 100 ML IVPB PRN (13:02)
[2017-07-16 16:01] VITALS: BP 130/86
[2017-07-16 16:19] VITALS: BP 121/91
[2017-07-16] MEDS: HEPARIN FLSH (PORT) 500 UN/5ML IVP PRN (17:06)
[2017-07-16 17:08] VITALS: BP 120/85
--- NOTE | 2017-07-16 18:30 | ONCOLOGY FOLLOW UP NOTE ---
EVENT DATE: July 16, 2017 REASON FOR FOLLOWUP Metastatic triple negative breast cancer. CHIEF COMPLAINT Fatigue, leg swelling, nose bleed, shortness of breath. INTERIM HISTORY Kirti returns to clinic for a follow-up visit today. She is accompanied by her . Since our last visit when she was hospitalized, she has seen pretty significant improvement. She remains very jaundiced, however. She continues to report fatigue and some abdominal bloating, although her appetite has improved and she has been able to eat more. She reports that her pain is controlled for the most part. She has developed some leg swelling without redness of pain. She has been taking Lasix and spironolactone at home with some effect. She reports no new bowels or bladder habits. She has been wearing oxygen due to hypoxemia caused by pleural effusions. She also reports some epistaxis, likely related to her supplemental oxygen. Since our last visit in the hospital, she has begun radiation therapy with Dr. Maldonado, and her dexamethasone has been discontinued. Her thickening has cleared substantially. She has had intensive followup with the nursing staff here at [facility], with regular laboratory studies, electrolyte repletion, and blood transfusions as needed, including platelets. The patient has also undergone a follow-up CT scan , and she is here to discuss the results after review with [facility] at the [facility] Multidisciplinary Conference. REVIEW OF SYSTEMS Otherwise negative, and all systems were reviewed. ONCOLOGY HISTORY Triple negative breast cancer. * Initial diagnosis in July of 2012 with biopsy of a left breast 7 o'clock lesion. Pathology showed a grade III invasive ductal carcinoma, triple negative , Ki-67=30%. Staging scans revealed a bone metastasis involving rib. Biopsy of the rib lesion was consistent with metastatic breast cancer. She was initially treated with dose-dense AC followed by Taxol for a total of eight cycles with reported good clinical response, but increased bone metastasis. She was started on Xgeva and enzalutamide at that time as part of the B 3100- 11 clinical trial (April 2013). She has tolerated enzalutamide remarkably well at 160 mg p.o. daily. * August 2014: CT of chest, abdomen and pelvis and bone scan showed stable findings. * In 2014, the patient moved to [place]. * November 22, 2014: CT of chest, abdomen and pelvis showed stable findings in comparison to August 2014 study. * July 10, 2016: CT scan reportedly shows new liver lesion measured at 11 mm and a 6 mm right lower lobe lung nodule. CT-PET scan was ordered. * Recent CT-PET scan reportedly shows hypermetabolic activity of this solitary liver lesion. * Current plan is for ablative procedure in Interventional Radiology with continuation of enzalutamide and Xgeva. * Focal therapy to liver metastasis via Interventional Radiology methods felt to be less than optimal, external beam radiotherapy recommended. * September 03, 2016 to October 01, 2016: Stereotactic body radiation therapy to solitary liver metastasis performed, 5000 cGy in five fractions. * October 07 017: Nuclear Medicine bone scan reveals multifocal bony metastatic disease with progression from prior study, concern for lesion in mid shaft of femur notable. * November 22, 2016: Enrollment on Rexahn clinical trial (p68 RNA helicase inhibitor). * January 10, 2017: CT scan reveals evidence of progression of disease. * February 21, 2017: Patient begins palliative carboplatin and gemcitabine. * April 11, 2016: Plan is to begin immunotherapy trial at [facility] with Dr. Christian Kidd. * Follow-up imaging in the [facility] revealing evidence of significant progression of disease. Patient stops clinical trial. * Follow-up imaging at [facility] during hospitalization: CT of the abdomen and pelvis reveals substantial hepatic metastatic disease, but upon Radiology review independently, five to six of these lesions are reducing significantly in size, indicative of treatment response. Also, at this time, the patient had an MRI of the brain revealing three, perhaps four metastatic lesions in the brain. * Carboplatin and gemcitabine held after cycle one due to concern for elevated bilirubin/abnormal liver function tests. Patient initiates radiation therapy to brain metastases. CURRENT MEDICATIONS 1. Spironolactone. 2. Lasix p.r.n. 3. Potassium chloride. 4. Calcium carbonate. 5. Prilosec. 6. Ativan. 7. OxyContin. 8. Compazine. 9. Oxycodone. 10. Zofran. 11. Ibuprofen p.r.n. 12. Ambien p.r.n. 13. Senna/docusate. 14. Xgeva. ALLERGIES CODEINE. SOCIAL HISTORY The patient is a nonsmoker. There is no history of alcohol abuse or illicit drug use. She lives here in [place]. FAMILY HISTORY There is a history of gastric cancer in a maternal aunt and another maternal aunt was diagnosed with ovarian cancer. VITAL SIGNS Temperature is 97.6, blood pressure 115/81, heart rate is 88, respirations 16, oxygen saturation is 100% on 2L. PHYSICAL EXAMINATION GENERAL: Patient is alert and oriented times three, in no apparent distress, sitting in the exam room chair. She is interactive and pleasant. She appears tired and jaundiced. HEENT: Exam reveals icteric sclerae. NEUROLOGIC: Exam is grossly nonfocal, and although her gait is slow and deliberate walking with a walker, she appears stable. SKIN: Exam reveals no concerning rash or lesion, but she is generally jaundiced. EXTREMITIES: Exam reveals edema of the bilateral lower extremities. LABORATORY STUDIES Reviewed per the [facility] record. IMAGING Please see oncology history. ASSESSMENT AND PLAN Triple negative breast cancer. I had a good discussion with Kirti and her today. We were accompanied by Cecelia Cisneros RN for the entirety of today' s visit. We discussed that her abdominal imaging was recently reviewed in comparison to her prior study from May. There has been evidence of response to chemotherapy. They were happy to hear this. There are about five to six lesions within the liver that appear to be getting smaller, and the liver dimensions appear to be improved, as well. Kirti has had an improvement in her overall status since starting on radiation therapy and having received initial dexamethasone for vasogenic edema due to NET APPLICATION ARCHITECT metastases. She is eating more, and this is encouraging. We spent time today reviewing her laboratory studies. She did have a concerning trend for the worse in her total bilirubin, and as discussed today, I would be more concerned about chemotherapy effect causing this change, as opposed to the hepatic metastatic disease, which again seems to be regressing. I have strongly recommended that she hold off on additional chemotherapy for the time being to allow her liver to recover. She has had a fall in her bilirubin since the last check (19 to 15), and her transaminase levels have been relatively stable. She is almost done with her radiation therapy with Dr. Maldonado. I have given her a prescription today for dexamethasone if she gets headaches or any focal neurologic symptoms in the next week or two. It is fine for her to continue on the diuretics, but I have warned her about the possibility of intravascular volume depletion/dehydration. She will use these carefully. She has no signs or symptoms to suggest infection. As discussed, I would prefer to wait until her bilirubin is at the minimum level it had been when we started her first cycle several weeks ago, and preferably a bit lower. I would anticipate ongoing response to carboplatin and gemcitabine, and we will not change or plans in this regard for the time being. I will plan to see Kirti back at the time of my next visit to [facility], and the [facility] nursing staff will keep me posted of her status and laboratory studies over time. She will receive a unit of platelets today. Of note, her INR has been relatively stable. Kirti does understand that it is possible she will need additional blood products in the future. She is concerned that she may be "resistant" to platelets previously received. As discussed, we will do a one-day posttransfusion platelet check. If there is no response, we will look into HLA match or single donor platelets. I spent a total of 30 minutes of [id number] time with the patient and her today, and 25 minutes of this was spent in direct counseling and coordination of care. JENNIFER
[2017-07-17 12:57] VITALS: BP 139/87
[2017-07-17 13:21] LABS: PLATELET COUNT, AUTOMATED 59 K/uL (150-450)
[2017-07-18 10:15] VITALS: BP 128/90
[2017-07-18 10:43] LABS: PLATELET COUNT, AUTOMATED 63 K/uL (150-450)
[2017-07-18 10:50] LABS: INR 1.6
[2017-07-18] MEDS: LIDOCAINE/SOD BICARB 8.4% SYR ID PRN (10:53)
[2017-07-18] MEDS: HEPARIN FLSH (PORT) 500 UN/5ML IVP PRN (10:53)
[2017-07-21 11:58] VITALS: BP 121/77
[2017-07-21 12:02] LABS: PLATELET COUNT, AUTOMATED 116 K/uL (150-450)
[2017-07-21 12:05] LABS: INR 1.69
[2017-07-21] MEDS: KCL (*) 20 MEQ/100 ML PREMIX 100 ML IVPB SCH ×2 (15:56→15:58)
[2017-07-21] MEDS: LIDOCAINE/SOD BICARB 8.4% SYR ID PRN (16:00)
[2017-07-21] MEDS: NS(*) 0.9% 100 ML BAG 100 ML IVPB PRN (16:01)
[2017-07-21] MEDS: HEPARIN FLSH (PORT) 500 UN/5ML IVP PRN (16:01)
[2017-07-22 09:28] VITALS: BP 113/83
[2017-07-22] MEDS: LIDOCAINE/SOD BICARB 8.4% SYR ID PRN (10:48)
[2017-07-22] MEDS: HEPARIN FLSH (PORT) 500 UN/5ML IVP PRN (10:48)
[2017-07-22] MEDS: NS(*) 0.9% 100 ML BAG 100 ML IVPB PRN (10:48)
[2017-07-23 10:28] VITALS: BP 122/82
[2017-07-23 10:48] LABS: PLATELET COUNT, AUTOMATED 144 K/uL (150-450)
[2017-07-23 10:52] LABS: INR 1.61
[2017-07-24] VITALS (7 sets, daily range): BP systolic 109–120; BP diastolic 64–90
[2017-07-24] MEDS: LIDOCAINE/SOD BICARB 8.4% SYR ID PRN (09:05)
[2017-07-24] MEDS: NS(*) 0.9% 500 ML BAG 500 ML IV PRN (09:05)
[2017-07-24] MEDS: HEPARIN FLSH (PORT) 500 UN/5ML IVP PRN (13:43)
[2017-07-25 10:18] LABS: PLATELET COUNT, AUTOMATED 146 K/uL (150-450)
[2017-07-25 10:27] LABS: INR 1.62
[2017-07-25 10:39] VITALS: BP 128/86
[2017-07-25] MEDS: HEPARIN FLSH (PORT) 500 UN/5ML IVP PRN (10:51)
[2017-07-25] MEDS: LIDOCAINE/SOD BICARB 8.4% SYR ID PRN (10:51)
[2017-07-28 09:30] VITALS: BP 115/80
[2017-07-28 09:56] LABS: PLATELET COUNT, AUTOMATED 133 K/uL (150-450)
[2017-07-28 10:04] LABS: INR 1.44
[2017-07-30 08:58] VITALS: BP 121/84
[2017-07-30 09:08] LABS: PLATELET COUNT, AUTOMATED 142 K/uL (150-450)
[2017-07-30 09:15] LABS: INR 1.46
--- NOTE | 2017-07-30 17:08 | ONCOLOGY FOLLOW UP NOTE ---
EVENT DATE: July 30, 2017 REASON FOR FOLLOWUP Metastatic triple negative breast cancer. CHIEF COMPLAINT Fatigue, abdominal bloating, leg swelling. INTERIM HISTORY Kirti returns to clinic for a follow-up visit today. She is accompanied by her . She reports that she has been getting along as well as can be expected since our last visit. She does have ongoing fatigue. She has had more abdominal distention, and she wonders whether she may be developing ascites. She denies fever. Her appetite has been fair. Pain control is pretty good at this point. She will be receiving palliative radiation soon with Dr. Maldonado. She had labs drawn today, and she is curious about the results. She continues to be quite jaundiced. REVIEW OF SYSTEMS Otherwise negative, and all systems were reviewed. ONCOLOGY HISTORY Triple negative breast cancer. * Initial diagnosis in July of 2012 with biopsy of a left breast 7 o'clock lesion. Pathology showed a grade III invasive ductal carcinoma, triple negative , Ki-67=30%. Staging scans revealed a bone metastasis involving rib. Biopsy of the rib lesion was consistent with metastatic breast cancer. She was initially treated with dose-dense AC followed by Taxol for a total of eight cycles with reported good clinical response, but increased bone metastasis. She was started on Xgeva and enzalutamide at that time as part of the DISHA 3100- 11 clinical trial (April 2013). She has tolerated enzalutamide remarkably well at 160 mg p.o. daily. * August 2014: CT of chest, abdomen and pelvis and bone scan showed stable findings. * In 2014, the patient moved to [place]. * November 22, 2014: CT of chest, abdomen and pelvis showed stable findings in comparison to August 2014 study. * July 10, 2016: CT scan reportedly shows new liver lesion measured at 11 mm and a 6 mm right lower lobe lung nodule. CT-PET scan was ordered. * Recent CT-PET scan reportedly shows hypermetabolic activity of this solitary liver lesion. * Current plan is for ablative procedure in Interventional Radiology with continuation of enzalutamide and Xgeva. * Focal therapy to liver metastasis via Interventional Radiology methods felt to be less than optimal, external beam radiotherapy recommended. * September 03, 2016 to October 01, 2016: Stereotactic body radiation therapy to solitary liver metastasis performed, 5000 cGy in five fractions. * October 07 017: Nuclear Medicine bone scan reveals multifocal bony metastatic disease with progression from prior study, concern for lesion in mid shaft of femur notable. * November 22, 2016: Enrollment on Rexahn clinical trial (p68 RNA helicase inhibitor). * January 10, 2017: CT scan reveals evidence of progression of disease. * February 21, 2017: Patient begins palliative carboplatin and gemcitabine. * April 11, 2016: Plan is to begin immunotherapy trial at [facility] with Dr. Christian Kidd. * Follow-up imaging in the [facility] revealing evidence of significant progression of disease. Patient stops clinical trial. * Follow-up imaging at [facility] during hospitalization: CT of the abdomen and pelvis reveals substantial hepatic metastatic disease, but upon Radiology review independently, five to six of these lesions are reducing significantly in size, indicative of treatment response. Also, at this time, the patient had an MRI of the brain revealing three, perhaps four metastatic lesions in the brain. * Carboplatin and gemcitabine held after cycle one due to concern for elevated bilirubin/abnormal liver function tests. Patient initiates radiation therapy to brain metastases. CURRENT MEDICATIONS 1. Spironolactone. 2. Lasix p.r.n. 3. Potassium chloride. 4. Calcium carbonate. 5. Prilosec. 6. Ativan. 7. OxyContin. 8. Compazine. 9. Oxycodone. 10. Zofran. 11. Ibuprofen p.r.n. 12. Ambien p.r.n. 13. Senna/docusate. 14. Xgeva. ALLERGIES CODEINE. SOCIAL HISTORY The patient is a nonsmoker. There is no history of alcohol abuse or illicit drug use. She lives here in [place]. FAMILY HISTORY There is a history of gastric cancer in a maternal aunt and another maternal aunt was diagnosed with ovarian cancer. VITAL SIGNS Temperature is 98.2, blood pressure 121/84, heart rate is 113, respirations 16, oxygen saturation is 97% on 2L nasal cannula. PHYSICAL EXAMINATION GENERAL: Patient is alert and oriented times three, in no apparent distress, sitting in the exam room chair. She is severely jaundiced. She is interactive and pleasant. HEENT: Exam reveals icteric sclerae. No significant oropharyngeal lesions. NEUROLOGIC: Exam is grossly nonfocal, although I did not test her gait today. ABDOMEN: Distended, but only slightly tender to palpation. Hepatomegaly is noted. EXTREMITIES: Exam reveals significant edema of the bilateral lower extremities without overlying tenderness or erythema. LABORATORY STUDIES Reviewed per the [facility] record. ASSESSMENT AND PLAN Metastatic triple negative breast cancer. I had a good visit with Kirti and her today in the infusion room. We spent time discussing her ongoing symptoms that have been present since our last visit. She does have more abdominal distention today. I an concerned that she may be developing ascites, and this would not be a good prognostic sign. She remains severely jaundiced and icteric. The rest of her labs were pending at the time of our visit today, but her bilirubin did return at 16.7. This is basically stable from prior. Unfortunately, we are not yet seeing any type of improvement in her total bilirubin. We discussed that if this trend continues, we will not have options for additional therapy for her breast cancer. She understands this. We turned the rest of our attention to symptom management today. We discussed the pros and cons of diuretic therapy. She did have a rash with one of the diuretics before, and I have asked her to try only one at a time to see which one is culprit. She has not required intervention during her most recent visits to the Infusion Center. Her counts have improved. She is afebrile today. She requests a refill in her OxyContin, and I would be more than happy to do this today. Kirti very much wants to continue following her laboratories closely, and hopes that her bilirubin will improve. For now, I think this is reasonable. I will plan to see her back in clinic during my next visit to [place]. RODRIGUEZ
[2017-07-31 11:39] VITALS: BP 116/77
--- NOTE | 2017-07-31 13:15 | RADIOLOGY IMAGING REPORT ---
FACILITY: [facility] PATIENT NAME: Kirti Olivares : 1975 MR: [id number] V: [id number] EXAM DATE: ORDERING PHYSICIAN: SLAVA STOKES TECHNOLOGIST: Location: [facility] [place] Patient: Kirti Olivares : 1975 Visit/Account:[id number] Date of Sevice: 07/31/2017 Exam type: US GUIDANCE FOR THORA/PARA History: Acities Comparison: July 08, 2017. Findings: Two sonographic images of the right upper quadrant were submitted for interpretation. Images demonst rate extensive hepatic metastases and a moderate amount of abdominal ascites. The patient's skin was marked for paracentesis to be performed by the patient's healthcare provider IMPRESSION: 1. As above Report Dictated By: Sonia Heath MD at 07/31/2017 1:10 PM Report E-Signed By: Sonia Heath MD at 07/31/2017 1:11 PM WSN:[email or web address]
--- NOTE | 2017-07-31 13:20 | Post Operative Progress Note ---
Post Operative Progress Note Date: July 31, 2017 Time: 13:20 Surgeon: alma Anesthesia: local Pre-Op Diagnosis: symptomatic ascites Post-Op Diagnosis: same Procedure(s): paracentesis Specimen Removed:(July N/A): 5100 cc ZULEYKA WARREN MD July 31, 2017 13:20
--- NOTE | 2017-07-31 13:22 | RADIOLOGY IMAGING REPORT ---
FACILITY: [facility] PATIENT NAME: Kirti Olivares : 1975 MR: [id number] V: [id number] EXAM DATE: ORDERING PHYSICIAN: SLAVA STOKES TECHNOLOGIST: Location: [facility] [place] Patient: Kirti Olivares : 1975 Visit/Account:[id number] Date of Sevice: 07/31/2017 EXAMINATION: Abdominal ultrasound complete HISTORY: Ascites COMPARISON: CT abdomen pelvis July 08, 2017 FINDINGS: Gallbladder: The gallbladder is contracted with a markedly thickened wall measuring 6.8 mm in thickne ss. There is nonshadowing echogenic material filling the gallbladder lumen. Liver: The liver is diffusely heterogeneous containing innumerable nodules. The liver contour is nod ular as well. The liver length appears to decrease in size when compared the prior study now measuri ng 19.5 cm as opposed to 25.5 cm although given the difference in imaging modalities differences only approximated. Common duct: Normal measuring 5.6 mm. Pancreas: Grossly unremarkable as imaged Spleen: Normal in size and echogenicity measuring 10.4 cm in length. Kidneys: Normal in size and echogenicity, the right measures 10.9 cm in length, and the left 11.8 cm . No hydronephrosis. Upper abdominal aorta and IVC: Negative. Ascites: A moderate amount of abdominal ascites IMPRESSION: Normal abdominal ultrasound. Gallbladder is contracted with a markedly thickened wall measuring 6.8 mm in thickness. Gallbladder lumen is filled with nonshadowing echogenic material of uncertain etiol ogy. Differential diagnosis would include sludge or mass lesion Moderate amount of abdominal ascites The liver is diffusely heterogeneous containing innumerable nodules consistent with metastases. The overall length of the liver appears slightly decreased when compared to the prior CT now measuring 19 .5 cm as opposed to 25.5 cm although given the difference in imaging modalities the difference is onl y approximated. Report Dictated By: Sonia Heath MD at 07/31/2017 1:11 PM Report E-Signed By: Sonia Heath MD at 07/31/2017 1:18 PM WSN:[email or web address]
[2017-07-31 13:35] VITALS: BP 109/73
--- NOTE | 2017-07-31 17:15 | PROCEDURE NOTE ---
EVENT DATE: July 31, 2017 SURGEON: Stevie Ojeda MD ANESTHESIA: Local. PREOPERATIVE DIAGNOSIS Symptomatic abdominal ascites. POSTOPERATIVE DIAGNOSIS Symptomatic abdominal ascites. PROCEDURE PERFORMED Paracentesis. DESCRIPTION OF PROCEDURE The patient placed in the supine position. Area in the right side of the abdomen was found with the ultrasound in a nice place for aspiration. The area was then marked. We then prepped and draped in sterile fashion, made a delfina in the skin with a #11 blade, passed the paracentesis catheter into position. We returned 5100 mL of brownish serous fluid. After the flow ceased, the catheter was removed. Op-Site was placed. Patient tolerated the procedure well. No apparent complications. MTDD
[2017-08-01 10:44] LABS: PLATELET COUNT, AUTOMATED 150 K/uL (150-450)
[2017-08-01 10:51] LABS: INR 1.41
[2017-08-04 09:55] VITALS: BP 114/82
[2017-08-04 10:03] LABS: PLATELET COUNT, AUTOMATED 157 K/uL (150-450)
[2017-08-05 09:28] VITALS: BP 117/80
[2017-08-05] MEDS: NS(*) 0.9% 100 ML BAG 100 ML IVPB PRN (09:42)
[2017-08-05] MEDS: LIDOCAINE/SOD BICARB 8.4% SYR ID PRN (09:42)
[2017-08-05] MEDS: HEPARIN FLSH (PORT) 500 UN/5ML IVP PRN (11:01)
[2017-08-06 12:33] VITALS: BP 109/84
[2017-08-06 12:45] LABS: PLATELET COUNT, AUTOMATED 148 K/uL (150-450)
[2017-08-06 12:57] LABS: INR 1.44
[2017-08-07 10:01] VITALS: BP 107/74
[2017-08-07] MEDS: HEPARIN FLSH (PORT) 500 UN/5ML IVP PRN ×2 (10:01→16:18)
[2017-08-07] MEDS: LIDOCAINE/SOD BICARB 8.4% SYR ID PRN ×2 (10:01→14:54)
--- NOTE | 2017-08-07 11:46 | RADIOLOGY IMAGING REPORT ---
FACILITY: [facility] [place] PATIENT NAME: Kirti Olivares : 1975 MR: [id number] V: [id number] EXAM DATE: ORDERING PHYSICIAN: SLAVA STOKES TECHNOLOGIST: Location: [facility] Patient: Kirti Olivares : 1975 Visit/Account:[id number] Date of Sevice: 08/07/2017 CHEST/AB/PELV W/WO CONTRAST HISTORY: Metastatic breast cancer ADDITIONAL HISTORY: None. TECHNIQUE: Pre and post administration of IV contrast axial images acquired through the chest abdome n and pelvis during the portal venous phase. Coronal and sagittal reformatting was also performed. D ose Lowering Technique One of the following dose optimization techniques was utilized in the performance of this exam: Autom ated exposure control; adjustment of the mA and/or kV according to the patient's size; or use of an i terative reconstruction technique. Specific details can be referenced in the facility's radiology C T exam operational policy. CONTRAST: 75 mL Isovue-370 COMPARISON: CTA chest abdomen and pelvis June 13, [address] abdomen pelvis July 08, 2017 FINDINGS: CHEST: Lungs/Pleura: Again noted are multiple pulmonary nodules throughout the lungs consistent with known pulmonary metastases. There has however been a dramatic improvement in both size and number of the p erceptible nodules. The previously described largest discrete nodule in the left upper lobe now measures 1 cm in diamete r as opposed 1.8 cm previously and is best seen on image 94 of series 4 The previously described 1.5 cm left lower lobe nodule is barely perceptible at this time. The previously described 1.7 cm nodule in the lingula now measures 1.1 cm in diameter and is best see n on image 148. The previously described 1.5 cm nodule in the right middle lobe now measures 1.1 cm best seen on imag e 160 Previously noted 2.6 cm masslike opacity in the left lower lobe now measures 1.8 cm in diameter best seen on image 198. The moderate to large posterior layering left pleural effusion has decreased in size now appears smal l to moderate. Less nodular enhancement is identified along the posterior aspect of the left pleural space. Small right pleural effusion also partially decreased in size. There is a small amount of by basilar atelectasis Mediastinum/lymph nodes: There has been a reduction in the size of the mediastinal and left hilar ly mph nodes. The AP window node now measures 1.5 x 1.3 cm as opposed to 2.1 x 1.6 cm previously. Subcarinal lymph node previously measured 1.2 x 1.2 cm is now barely perceptible. Previous left hilar lymph node measures 1.5 cm and is now barely perceptible. The precarinal lymph node previously measured 1.6 x 1.6 cm and now measures 1.5 x 1.4 cm Heart/vessels: There is an implanted right-sided port distal tip in superior vena cava. There is no evidence of pericardial effusion. Bones/soft tissues: There is an S-shaped scoliosis of the thoracolumbar spine. Numerous sclerotic m etastases again seen diffusely throughout the visualized bones ABDOMEN AND PELVIS: Hepatobiliary: Liver has decreased in size now measuring 22.4 cm in length and 26.1 cm in width as o pposed to 25.7 cm in length and 29.3 cm in width is a marked lobular contour to the liver. There has been a decrease in size of the numerous hepatic metastases. Right lobe segment six ( series 7 image 95) now measures 1.8 x 1.8 cm as opposed to 2.6 x 2.9 cm. Right lobe subcapsular lesion segment seven (series 7 image 70) now measures 1.7 x 1.1 cm as opposed to 2 x 2.5 cm previously Right lobe anteriorly segment eight (series 7 image 77) now measures 1.3 x 1.3 cm as opposed to 1.6 x 1.9 cm. Segment IVb (series 7 image 102) now measures 1.3 x 1.1 cm as opposed to 1.6 x 2 cm previously Segment three (series 7 image 103) previously measured 1.7 x 2.1 cm now measures 1.9 x 1 cm Spleen: Spleen is mildly enlarged measuring 14.1 cm in length. Previously measuring 12.3 cm Pancreas: Negative. Adrenals: Ne ative. Kidneys ureters and bladder : Negative. Genitalia: There is an IUD within the uterusGI: The stomach is moderately distended with fluid and pa rticulate material. This could be related to recent meal. There is no evidence of bowel obstruction . Vessels/spaces/nodes: There has been a decrease in the retroperitoneal adenopathy. The previously d escribed 2.4 x 1.6 cm aortocaval lymph node now measures 1.7 x 1.1 cm. Bones/soft tissues: Diffuse sclerotic metastases again seen throughout the bones Additional findings: None pertinent. IMPRESSION: There has been marked improvement of the pulmonary and hepatic metastases as detailed above. Interval decrease in the right peroneal adenopathy Diffuse osseous metastases again noted appearing similar to the prior study Spleen is mildly enlarged measuring 14.1 cm in length as opposed to 12.3 cm Report Dictated By: Sonia Heath MD at 08/07/2017 10:34 AM Report E-Signed By: Sonia Heath MD at 08/07/2017 11:41 AM
[2017-08-07] MEDS: NS(*) 0.9% 100 ML BAG 100 ML IVPB PRN (15:25)
[2017-08-07 15:28] VITALS: BP 111/73
[2017-08-07 16:18] VITALS: BP 114/75
[2017-08-08] MEDS: LIDOCAINE/SOD BICARB 8.4% SYR ID PRN (12:19)
[2017-08-08] MEDS: NS(*) 0.9% 100 ML BAG 100 ML IVPB PRN (12:25)
[2017-08-08] MEDS: SODIUM CHLORIDE 0.9% IVPB PRN (12:28)
[2017-08-08] MEDS: METHYLPREDNISOLONE IVPB PRN (12:28)
[2017-08-08 12:36] VITALS: BP 112/74
[2017-08-08 13:10] LABS: INR 1.54
[2017-08-08 13:16] VITALS: BP 114/76
[2017-08-08] MEDS: HEPARIN FLSH (PORT) 500 UN/5ML IVP PRN (13:38)
[2017-08-09 12:33] VITALS: BP 116/76
[2017-08-09] MEDS: SODIUM CHLORIDE 0.9% IVPB PRN (12:45)
[2017-08-09] MEDS: LIDOCAINE/SOD BICARB 8.4% SYR ID PRN (12:45)
[2017-08-09] MEDS: METHYLPREDNISOLONE IVPB PRN (12:45)
[2017-08-09 13:53] VITALS: BP 113/72
[2017-08-09] MEDS: HEPARIN FLSH (PORT) 500 UN/5ML IVP PRN (14:01)
[2017-08-09] MEDS: NS(*) 0.9% 100 ML BAG 100 ML IVPB PRN (14:02)
[2017-08-10 11:27] VITALS: BP 119/81
[2017-08-10] MEDS: METHYLPREDNISOLONE IVPB PRN (11:37)
[2017-08-10] MEDS: SODIUM CHLORIDE 0.9% IVPB PRN (11:37)
[2017-08-10] MEDS: NS(*) 0.9% 100 ML BAG 100 ML IVPB PRN (11:37)
[2017-08-10] MEDS: LIDOCAINE/SOD BICARB 8.4% SYR ID PRN (11:39)
[2017-08-10 12:16] VITALS: BP 116/78
[2017-08-11 10:30] VITALS: BP 110/70
[2017-08-11 10:45] LABS: PLATELET COUNT, AUTOMATED 199 K/uL (150-450)
[2017-08-11 10:55] LABS: INR 1.52
[2017-08-11] MEDS: SODIUM CHLORIDE 0.9% IVPB PRN (10:56)
[2017-08-11] MEDS: METHYLPREDNISOLONE IVPB PRN (10:56)
[2017-08-11] MEDS: LIDOCAINE/SOD BICARB 8.4% SYR ID PRN (11:00)
[2017-08-11] MEDS: HEPARIN FLSH (PORT) 500 UN/5ML IVP PRN (11:31)
[2017-08-12] MEDS: HEPARIN FLSH (PORT) 500 UN/5ML IVP PRN (10:51)
[2017-08-12] MEDS: LIDOCAINE/SOD BICARB 8.4% SYR ID PRN (10:51)
[2017-08-12] MEDS: NS(*) 0.9% 100 ML BAG 100 ML IVPB PRN (10:52)
[2017-08-12] MEDS: METHYLPREDNISOLONE IVPB PRN (10:52)
[2017-08-12] MEDS: SODIUM CHLORIDE 0.9% IVPB PRN (10:52)
[2017-08-12 11:59] VITALS: BP 117/79
[2017-08-13 10:18] LABS: PLATELET COUNT, AUTOMATED 169 K/uL (150-450)
[2017-08-13 10:19] VITALS: BP 119/77
[2017-08-13] MEDS: LIDOCAINE/SOD BICARB 8.4% SYR ID PRN (10:41)
[2017-08-13] MEDS: METHYLPREDNISOLONE IVPB PRN (10:42)
[2017-08-13] MEDS: SODIUM CHLORIDE 0.9% IVPB PRN (10:42)
[2017-08-13 11:37] LABS: INR 1.42
[2017-08-15 08:56] LABS: PLATELET COUNT, AUTOMATED 143 K/uL (150-450)
[2017-08-15 09:02] LABS: INR 1.54
[2017-08-15] MEDS: LIDOCAINE/SOD BICARB 8.4% SYR ID PRN (14:01)
[2017-08-15] MEDS: HEPARIN FLSH (PORT) 500 UN/5ML IVP PRN (14:02)
--- NOTE | 2017-08-19 10:38 | RADIOLOGY IMAGING REPORT ---
FACILITY: PATIENT NAME: Kirti Olivares : 1975 MR: [id number] V: [id number] EXAM DATE: ORDERING PHYSICIAN: SLAVA STOKES TECHNOLOGIST: Location: [facility] Patient: Kirti Olivares : 1975 Visit/Account:[id number] Date of Sevice: 08/19/2017 Exam type: US GUIDANCE FOR THORA/PARA History: Marking for paracentesis Comparison: August 06, 2017. Findings: Multiple sonographic images of the abdomen were submitted demonstrating a large amount of ascites. T he patient's skin was marked for paracentesis to be performed by the patient's health care provider IMPRESSION: 1. As above Report Dictated By: Sonia Heath MD at 08/19/2017 10:18 AM Report E-Signed By: Sonia Heath MD at 08/19/2017 10:33 AM WSN:[email or web address]
[2017-08-19 10:59] LABS: PLATELET COUNT, AUTOMATED 75 K/uL (150-450)
[2017-08-19 11:05] LABS: INR 2.05
--- NOTE | 2017-08-19 11:13 | Post Operative Progress Note ---
Post Operative Progress Note Date: August 19, 2017 Time: 11:54 Surgeon: alma Anesthesia: local Pre-Op Diagnosis: symptomatic ascites Post-Op Diagnosis: same Procedure(s): paracentesis Specimen Removed:(May be N/A): 6000 cc fluid removed ZULEYKA WARREN MD August 19, 2017 11:13
[2017-08-19 13:14] VITALS: BP 95/69
[2017-08-19] MEDS: HEPARIN FLSH (PORT) 500 UN/5ML IVP PRN (13:18)
[2017-08-19] MEDS: LIDOCAINE/SOD BICARB 8.4% SYR ID PRN (16:56)
--- NOTE | 2017-08-19 17:20 | PROCEDURE NOTE ---
EVENT DATE: August 19, 2017 SURGEON: Stevie Ojeda MD ANESTHESIA: Local. PREOPERATIVE DIAGNOSIS Symptomatic ascites. POSTOPERATIVE DIAGNOSIS Symptomatic ascites. PROCEDURE PERFORMED Abdominal paracentesis. DESCRIPTION OF PROCEDURE Patient placed in the reclining position. Ultrasound identified a nice area of fluid in the right lower quadrant with no surrounding bowel. This area was then marked. It was prepped and draped in a sterile fashion. Duncan was made in the skin with a #11 blade. The paracentesis catheter was entered at an angle. Fluid was returned. We returned 6 L of deanna acetic fluid. Flow then ceased. We tried positioning the patient. It did not seem to make any difference. Catheter was removed. Op-Site was placed. Patient tolerated the procedure well. No apparent complication. [facility]
[2017-08-20 12:36] VITALS: BP 98/63
[~2017-08-21] VITALS: Ht 167.6 cm; Wt 64.1 kg
[~2017-08-21 09:00] MED LIST changes: +ALTEPLASE RECOMB 2 MG VIAL IVP PRN; +CALCIUM GLUC 1 GM/NS 100 ML IVPB ONE; +CALCIUM GLUC(*)10% 100MG/ML VL 2,000 MG in NS(*) 0.9% 100 ML BAG 100 ML IVPB ONE; +CARBOPLATIN IVPB ONE; +DEXTROSE 5%(*) 100 ML BAG 100 ML IVPB PRN; +FUROSEMIDE 20 MG/2 ML VIAL IVP ONE; +GEMCITABINE IVPB ONE; +KCL (*) 20 MEQ/100 ML PREMIX 100 ML IVPB ONE; -LAC10L PO; +LIDOCAINE 2% MDV 400MG/20ML VL INFIL PRN; +MAGNESIUM SULF 4 GM/100 ML BAG 100 ML IVPB ONE; +NS 0.9% IVPB ONE; +WATER FOR INJ,STERILE 20 ML IVP PRN; +[UNRECOGNIZED DRUG - OTHER] IVPB ONE; +methylPREDNIS SUCC 125 MG/2ML IVP PRN
[2017-08-21 09:39] VITALS: BP 87/52
[2017-08-21] MEDS ORDERED: GADOBENATE 529MG/1ML 15ML VIAL IVP ONE (10:19)
--- NOTE | 2017-08-21 11:39 | RADIOLOGY IMAGING REPORT ---
[facility] PATIENT NAME: Kirti Olivares : 1975 MR: [id number] V: [id number] EXAM DATE: ORDERING PHYSICIAN: SLAVA STOKES TECHNOLOGIST: Location: [facility] Patient: Kirti Olivares : 1975 Visit/Account:[id number] Date of Sevice: 08/21/2017 EXAMINATION: MRI Brain without IV contrast MRI Brain with IV contrast History: History of breast cancer. COMPARISON STUDIES: 07/18/2017 TECHNIQUE: Multi-planar, multi-sequence brain MRI was performed before and after IV gadolinium. Contrast: 14 mL of IV MultiHance FINDINGS: Paranasal sinuses / mastoid air cells: Progression of extensive mucosal thickening throughout the par anasal sinuses. Right mastoid effusion. Calvarium and scalp: negative White matter: Significant improvement in left occipital lobe and left cerebellar metastatic lesions w hich remain barely discernible. A 3 mm right frontal lobe lesion is unchanged. A punctate lesion slig htly more anterior on the same image, series 9 image 17 is slightly more conspicuous and and retrospe ct was probably present on the prior study. Punctate focus of gradient susceptibility on the right un changed. Mild dural enhancement bilaterally is nonspecific and unchanged. Ventricles / sulci / fissures: negative Masses / hemorrhage / midline shift: negative Extra-axial spaces: Normal for age. Enhancement pattern: As above Vascular structures: negative Sagittal midline structures: negative Orbits: negative Visualized upper neck: negative IMPRESSION: 1. Significant improvement in left cerebellar and left occipital lobe metastatic lesions which remain barely discernible. A 3 mm metastatic lesion in the right frontal lobe appears stable. An adjacent p unctate metastatic lesion is slightly more conspicuous and in retrospect was probably present on the prior study. 2. Progression of extensive paranasal sinus disease and new right mastoid effusion. Report Dictated By: Hay Reyes MD at 08/21/2017 11:22 AM Report E-Signed By: Hay Reyes MD at 08/21/2017 11:35 AM WSN:[email or web address]
[2017-08-21] MEDS: HEPARIN FLSH (PORT) 500 UN/5ML IVP PRN (12:34)
[2017-08-21] MEDS: LIDOCAINE/SOD BICARB 8.4% SYR ID PRN (12:34)
[2017-08-21] MEDS ORDERED: LAC10L PO (14:52)
[2017-08-21] MEDS ORDERED: OXYC-823 PO (21:28)
== END 2017-08-27 ==
LOC: SPU 09:00
PROVIDERS: ATTEND Internal Medicine Medical Oncology
DX: Z51.11 Encounter for antineoplastic chemotherapy (principal); C50.312 Malignant neoplasm of lower-inner quadrant of left female breast; Z17.1 Estrogen receptor negative status [ER-]; C79.51 Secondary malignant neoplasm of bone; C78.7 Secondary malignant neoplasm of liver and intrahepatic bile duct; Z92.21 Personal history of antineoplastic chemotherapy; D75.9 Disease of blood and blood-forming organs, unspecified; K72.00 Acute and subacute hepatic failure without coma; R11.0 Nausea; G89.3 Neoplasm related pain (acute) (chronic); R53.1 Weakness; R53.83 Other fatigue; R18.8 Other ascites
CPT/HCPCS: 36415; 36591; 36592; 49083; 70553; 71270; 72194; 74170; 76700; 81001; 82248; 82330; 83010; 83735; 84100; 85007; 85025; 85027; 85045; 85610; 85730; 86850; 86880; 86900; 86901; 86920; 88104; 96360; 96361; 96365; 96366; 96367; 96368; 96374; 96375; 96413; 96417; 99212; A7048; A9577; J0610; J1100; J1453; J1642; J1940; J2001; J2469; J2930; J3475; J3480; J7040; J7050; J9045; J9201; P9016; P9035; Q9967; 36430; 74178; 82040; 82247; 82310; 82374; 82435; 82565; 82947; 84075; 84132; 84155; 84295; 84450; 84460; 84520

== ENCOUNTER 2017-08-21 20:17 | Emergency (ER) | payer BC, OTHER ==
[2017-07-09 11:04] VITALS: BMI 21.0
[~2017-08-21 20:17] MED LIST changes: -ALTEPLASE RECOMB 2 MG VIAL IVP PRN; -CALCIUM GLUC 1 GM/NS 100 ML IVPB ONE; -CALCIUM GLUC(*)10% 100MG/ML VL 2,000 MG in NS(*) 0.9% 100 ML BAG 100 ML IVPB ONE; -CARBOPLATIN IVPB ONE; -DEXTROSE 5%(*) 100 ML BAG 100 ML IVPB PRN; -FUROSEMIDE 20 MG/2 ML VIAL IVP ONE; -GEMCITABINE IVPB ONE; -KCL (*) 20 MEQ/100 ML PREMIX 100 ML IVPB ONE; +LAC10L PO; -LIDOCAINE 2% MDV 400MG/20ML VL INFIL PRN; -MAGNESIUM SULF 4 GM/100 ML BAG 100 ML IVPB ONE; -NS 0.9% IVPB ONE; -WATER FOR INJ,STERILE 20 ML IVP PRN; -[UNRECOGNIZED DRUG - OTHER] IVPB ONE; -methylPREDNIS SUCC 125 MG/2ML IVP PRN
--- NOTE | 2017-08-21 20:30 | ER Report ---
History and Physical Time Seen By MD: 20:29 Hx. of Stated Complaint: PATIENT AND EMS STATE THAT SHE HAS BEEN REALLY CONFUSED TODAY AND LETHARGIC HPI/ROS CHIEF COMPLAINT: lethargy and confusion HISTORY OF PRESENT ILLNESS: This is a 42 year old female. She has been very lethargic and weak for several days and today she has been confused. She has a history of breast cancer metastatic to her liver, bone and brain. She sees Dr. Sands at the cancer center here in [place]. She saw him yesterday, and according to the patient and reading his note, he is going to be looking at further chemotherapy. She has radiation as well. It sounds like the cancer lesions have been responding to the treatments recently. They were going to be talking to [facility], Dr. Kidd, about further options and possible liver biopsy. Some of her confusion may be due to ammonia levels as well they were going to be looking into that. Today, EMS arrived at her home and she was lethargic and confused. Her blood sugar was undetectable, so they gave an amp of D50. On arrival they said that she did perk up a little, but still some confusion. Her says that she tends to be in and out of confusion. She is jaundiced and icteric. She has not been drinking much fluid. They drained 5 liters of fluid on a paracentesis done on 08/19. She has had no fevers or chills. She has been urinating less. No problems noted with bowels. No cough, but she has been feeling short of breath. She is on her usual 3 liters of oxygen by nasal canula at this time. REVIEW OF SYSTEMS: Constitutional: No fever or chills. Eyes: No report of vision changes. ENT: No report of sore throat or congestion. Cardiovascular: No chest pain. Respiratory: As above. Gastrointestinal: Always has some abdominal pain, this seems stable. Having some nausea. Genitourinary: As above. Musculoskeletal: No report of musculoskeletal pain. Skin: As above. Neurological: As above. Allergies: Coded Allergies: codeine (Verified Adverse Reaction, Intermediate, NAUSEA/VOMITING, 07/08/17 ) Home Meds Active Scripts Potassium Chloride (Potassium Chloride) 20 Meq Tablet.er, 20 MEQ PO DAILY, #30 PACK 1 Refill Prov:SARAH JENSEN MD 07/07/17 Lorazepam (ATIVAN) 0.5 Mg Tablet, 0.5 MG PO Q4-6H, #30 TAB 0 Refills Prov:SARAH JENSEN MD 06/23/17 Oxycodone Hcl (OXYCODONE HCL) 5 Mg Capsule, 5 MG PO Q4-6H for PAIN, #120 CAPSULE Prov:SARAH JENSEN MD 06/23/17 Ondansetron (ZOFRAN ODT) 8 Mg Tab.rapdis, 8 MG PO Q4H Y for NAUSEA, #30 TAB Prov:JUAN CARLOS TREVIÑO DO 06/16/17 Zolpidem Tartrate (AMBIEN) 10 Mg Tablet, 1 TAB PO QHS, #30 TAB 2 Refills Prov:ANAHI [employer] ENG[employer]ER-BC, ONC 02/18/17 Reported Medications Oxycodone Hcl (OXYCONTIN) 10 Mg Tab.er.12h, 10 MG PO 1-2XD Y for PAIN, TAB 08/21/17 Lactulose (LACTULOSE) 20 Gm/30 Ml Soln, 20 GM PO BID 08/21/17 Denosumab (XGEVA) 120 Mg/1.7 Ml Vial, 120 MG SUBQ Q4WK for breast CA, VIAL 06/01/15 Discontinued Scripts Oxycodone Hcl (OXYCONTIN) 10 Mg Tab.er.12h, 20-30 MG PO BID, #120 TAB Take 10mg or 20 mg (1-2 tablets) every 12 hours for pain management Prov:SARAH JENSEN MD 06/23/17 Reviewed Nurses Notes: Yes Hx Smoking: Yes (12 YRS 1/2 PPD QUIT 2007) Smoking Status: Former Smoker Exposure to Second Hand Smoke?: No Hx Substance Use Disorder: No Hx Alcohol Use: Yes (in past/none for past 9 months) Constitutional Vital Sign - Last 24 Hours 08/21/17 08/21/17 08/21/17 08/21/17 20:15 20:17 20:30 20:32 Temp 97.6 Pulse 112 111 113 Resp 30 27 B/P (MAP) 104/57 86/56 (66) Pulse Ox 96 95 O2 Delivery Room Air 08/21/17 08/21/17 08/21/17 08/21/17 20:47 21:00 21:02 21:17 Pulse 113 112 114 Resp 36 29 37 B/P (MAP) 96/57 (70) Pulse Ox 95 95 94 08/21/17 08/21/17 08/21/17 08/21/17 21:30 21:32 21:47 22:00 Pulse 115 Resp 35 39 B/P (MAP) 97/61 (73) 104/65 (78) Pulse Ox 97 08/21/17 08/21/17 08/21/17 22:02 22:10 22:25 Pulse 117 117 119 Resp 17 41 Pulse Ox 88 93 Physical Exam General Appearance: The patient is confused. No acute distress. Eyes: Pupils are equal, round. No pallor or infection. Very icteric. ENT: Mucous membranes are dry, otherwise normal. Neck: Supple and non tender. Respiratory: Lungs are clear to auscultation. Cardiovascular: Regular rate and rhythm. No murmurs, gallops or rubs. Normal capillary refill. Gastrointestinal: Abdomen is soft. Diffuse discomfort. Distended with slight fluid wave. Guarding, but no rebound. Normal active bowel sounds. No costovertebral angle tenderness with percussion. Neurological: Alert at times, oriented to self and place. No focal deficits noted. Skin: Warm and dry. Severe jaundice. Musculoskeletal: Extremities are nontender. No tenderness in palpation of the cervical, thoracic and lumbar spine. DIFFERENTIAL DIAGNOSIS: After history and physical exam, differential diagnosis was considered for confusion and weakness with lethargy of uncertain etiology. Suspect this could be due to renal dysfunction, dehydration, her ongoing kidney disease. MRI done just yesterday shows actual shrinkage of lesions that have been present in the brain with no edema or problems so I don't think problems with the masses would be causing her confusion today. With the liver dysfunction would consider possibly have a problem with ammonia levels. Blood pressures are running just a little bit low at this time and she is dehydrated, this could be from the recent paracentesis. We will go ahead and start with a liter of normal saline. We have also need to recheck her blood sugars as the blood sugars could be contributing to her confusion as well. Medical Decision Making Data Points Result Diagram: 08/21/17210908/21/172109 Laboratory Hematology Test 08/21/17 21:10 08/21/17 23:43 08/22/17 00:02 Red Blood Count 2.49 M/uL (4.17-5.56) Mean Corpuscular Volume 100.2 fL (80.0-96.0) Mean Corpuscular Hemoglobin 33.9 pg (26.0-33.0) Mean Corpuscular Hemoglobin Concent 33.9 g/dL (32.0-36.0) Red Cell Distribution Width 30.9 % (11.5-14.5) Mean Platelet Volume 8.2 fL (7.2-11.1) Neutrophils (%) (Auto) % (39.4-72.5) Lymphocytes (%) (Auto) % (17.6-49.6) Monocytes (%) (Auto) % (4.1-12.4) Eosinophils (%) (Auto) % (0.4-6.7) Basophils (%) (Auto) % (0.3-1.4) Nucleated RBC Relative Count (auto) /100WBC Neutrophils # (Auto) K/uL (2.0-7.4) Lymphocytes # (Auto) K/uL (1.3-3.6) Monocytes # (Auto) K/uL (0.3-1.0) Eosinophils # (Auto) K/uL (0.0-0.5) Basophils # (Auto) K/uL (0.0-0.1) Nucleated RBC Absolute Count (auto) K/uL Neutrophils % (Manual) 75 % (39.4-72.5) Band Neutrophils % 16 % Lymphocytes % (Manual) 6 % (17.6-49.6) Monocytes % (Manual) 1 % (4.1-12.4) Eosinophils % (Manual) 1 % (0.4-6.7) Basophils % (Manual) 0 % (0.3-1.4) Myelocytes % 1 % Differential Comment Toxic Granulation Pres Anisocytosis 3+ Prothrombin Time 46.3 seconds (12.0-14.4) Prothromb Time International Ratio 4.69 Activated Partial Thromboplast Time 70 seconds (23-35) Sodium Level 127 mmol/L (137-145) Potassium Level 5.6 mmol/L (3.5-5.0) Chloride Level 94 mmol/L (98-107) Carbon Dioxide Level 10 mmol/L (22-31) Blood Urea Nitrogen 43 mg/dl (7-18) Creatinine 2.90 mg/dl (0.52-1.04) Glomerular Filtration Rate Calc 18.0 Random Glucose 41 mg/dl (75-110) Calcium Level 6.6 mg/dl (8.4-10.2) Magnesium Level 1.8 mg/dl (1.7-2.2) Total Bilirubin 15.7 mg/dl (0.2-1.3) Aspartate Amino Transf (AST/SGOT) 389 U/L (0-35) Alanine Aminotransferase (ALT/SGPT) 95 U/L (0-56) Alkaline Phosphatase 320 U/L (0-126) Total Protein 4.4 gm/dl (6.3-8.2) Albumin 1.8 g/dl (3.5-5.0) Lactate 14.7 mmol/L (0.7-2.1) Ammonia 9 UMOL/L (9-33) Whole Blood Glucose 116 mg/DL (75-110) Chemistry Test 08/21/17 21:10 08/21/17 23:43 08/22/17 00:02 White Blood Count 4.8 k/uL (4.5-11.0) Red Blood Count 2.49 M/uL (4.17-5.56) Hemoglobin 8.5 g/dL (12.0-16.0) Hematocrit 25.0 % (34.0-47.0) Mean Corpuscular Volume 100.2 fL (80.0-96.0) Mean Corpuscular Hemoglobin 33.9 pg (26.0-33.0) Mean Corpuscular Hemoglobin Concent 33.9 g/dL (32.0-36.0) Red Cell Distribution Width 30.9 % (11.5-14.5) Platelet Count 67 K/uL (150-450) Mean Platelet Volume 8.2 fL (7.2-11.1) Neutrophils (%) (Auto) % (39.4-72.5) Lymphocytes (%) (Auto) % (17.6-49.6) Monocytes (%) (Auto) % (4.1-12.4) Eosinophils (%) (Auto) % (0.4-6.7) Basophils (%) (Auto) % (0.3-1.4) Nucleated RBC Relative Count (auto) /100WBC Neutrophils # (Auto) K/uL (2.0-7.4) Lymphocytes # (Auto) K/uL (1.3-3.6) Monocytes # (Auto) K/uL (0.3-1.0) Eosinophils # (Auto) K/uL (0.0-0.5) Basophils # (Auto) K/uL (0.0-0.1) Nucleated RBC Absolute Count (auto) K/uL Neutrophils % (Manual) 75 % (39.4-72.5) Band Neutrophils % 16 % Lymphocytes % (Manual) 6 % (17.6-49.6) Monocytes % (Manual) 1 % (4.1-12.4) Eosinophils % (Manual) 1 % (0.4-6.7) Basophils % (Manual) 0 % (0.3-1.4) Myelocytes % 1 % Differential Comment Toxic Granulation Pres Anisocytosis 3+ Prothrombin Time 46.3 seconds (12.0-14.4) Prothromb Time International Ratio 4.69 Activated Partial Thromboplast Time 70 seconds (23-35) Glomerular Filtration Rate Calc 18.0 Calcium Level 6.6 mg/dl (8.4-10.2) Magnesium Level 1.8 mg/dl (1.7-2.2) Total Bilirubin 15.7 mg/dl (0.2-1.3) Aspartate Amino Transf (AST/SGOT) 389 U/L (0-35) Alanine Aminotransferase (ALT/SGPT) 95 U/L (0-56) Alkaline Phosphatase 320 U/L (0-126) Total Protein 4.4 gm/dl (6.3-8.2) Albumin 1.8 g/dl (3.5-5.0) Lactate 14.7 mmol/L (0.7-2.1) Ammonia 9 UMOL/L (9-33) Whole Blood Glucose 116 mg/DL (75-110) Coagulation Test 08/21/17 21:10 Prothrombin Time 46.3 seconds Prothromb Time International Ratio 4.69 Activated Partial Thromboplast Time 70 seconds EKG/Imaging EKG Interpretation 12 lead EKG: Rhythm: Sinus tachycardia, rate 113 [place]: normal QRS: normal ST segments: normal Monitor Interpretation: Normal Sinus Rhythm Imaging Examination: CHEST SINGLE AP Comparison: 08/17/2017 and earlier. History: fatigue Findings: Small left pleural effusion. Right more so than left perihilar and infrahilar ill-defined groundglass and consolidation. No pneumothorax. Cardiac and hilar contour size is within normal limits and unchanged. Infusion port as before. No acute osseous abnormality. IMPRESSION: 1. Increased right greater than left perihilar and infrahilar ill-defined groundglass and consolidation. Depending upon the clinical setting this could either be pulmonary edema or pneumonia. 2. Small left pleural effusion. Report Dictated By: Javy Ortega MD at 08/21/2017 10:02 PM ED Course/Re-evaluation Clinical Indication for ER IV: Hydration, IV Access ED Course I reviewed her recent labs and she has some chronic changes including a severe elevated bilirubin, hyponatremia, and renal insufficiency as well as her ongoing elevation of her liver function tests in addition to the bilirubin. A liter of NS was started initially to help support blood pressure and see if dehydration could be a part of the problem but I wanted to exercise some caution given her third spacing of fluids in the abdomen and recent paracentesis. Repeat blood glucose was 41 so another amp of D50 was given. However labs started coming back with lactic acid of 13.9. She is still anemic and still having hyponatremia but her bicarbonate has worsened and her renal problems have worsened as well. Liver function tests appear to be stable. EKG was obtained which was negative. Her white count is normal however she does have a left shift associated with this. X-ray came back showing what appears to be a right middle lobe infiltrate. Blood pressures have dipped a little bit but respond to the fluid boluses so far. It appears that she likely has sepsis in addition to her other chronic problems contributing to her mental status. We have given a dose of Primaxin 500mg IV after blood cultures were obtained. She still has not been able to provide a urine sample. I called and spoke with our hospitalist and after discussion with him, called and spoke with Dr. Baldwin at [facility] who accepted the patient for transfer there to the ICU. We are currently on a second liter of normal saline and will be giving her third as well. Will watch for the need for pressors, although, she does not appear to need pressors at this time. We are also going to give a stress dose of hydrocortisone 100 mg IV. Repeat blood glucose was again low and another amp of D50 was given. Discussed the plans with the family. We have called for helicopter for transfer. The flight paramedics have arrived and discussed the case with them. Second lactate is back and is slightly more elevated. She is on her 3rd liter of normal saline. Blood pressures a little lower, but still not seeing need for pressors at this time. She is having more abdominal pain, but based on pressures and confusion, we would like to try to hold off. Discussed this with fight crew and Fentanyl could be used if needed. Decision to Disposition Date: August 21, 2017 Decision to Disposition Time: 23:16 Critical Care Time I spent a total of 120 minutes of critical care time in obtaining history, performing a physical exam, bedside monitoring of interventions, collecting and interpreting tests and discussion with consultants but not including time spent performing procedures. Transfer Facility Patient was transferred to [facility] via helicopter. The transfer was emergent, and was required because the capabilities of the receiving hospital. Consent for transfer was obtained from the patient and her . See EMTALA for transfer orders. Depart Departure Latest Vital Signs Vital Signs Date Time Temp Pulse Resp B/P (MAP) Pulse Ox O2 Delivery O2 Flow Rate FiO2 08/21/17 22:25 119 41 93 08/21/17 22:00 104/65 (78) 08/21/17 20:15 97.6 Room Air Impression: Primary Impression: Sepsis Additional Impression: Pneumonia Condition: Critical Disposition: XFER TO [facility] Problem Qualifiers Primary Impression: Sepsis Sepsis type: sepsis due to unspecified organism Qualified Codes: A41.9 - Sepsis, unspecified organism Additional Impression: Pneumonia Pneumonia type: due to unspecified organism Laterality: right Lung location : middle lobe of lung Qualified Codes: J18.1 - Lobar pneumonia, unspecified organism SHWETA YOUNGER MD August 21, 2017 20:29
[2017-08-21] MEDS ORDERED: EMS NS 0.9%(*) 1000 ML BAG 1,000 ML IV ONE (20:40)
--- NOTE | 2017-08-21 20:53 | EKG ---
FACILITY: [facility] [place] PATIENT NAME: GAYLE SNELL : [id number] MR: [id number] V: [id number] EXAM DATE: ORDERING PHYSICIAN: SHWETA YOUNGER TECHNOLOGIST: KARMA Test Reason : FATIGUE Blood Pressure : / mmHG Vent. Rate : 113 BPM Atrial Rate : 113 BPM P-R Int : 138 ms QRS Dur : 086 ms QT Int : 366 ms P-R-T Axes : 057 051 056 degrees QTc Int : 502 ms Sinus tachycardia Anterior infarct (cited on or before 11-FEB-2017) No ST-T abnormalities QTc prolonged When compared with ECG of 11-FEB-2017 10:55, Relatively unchanged Confirmed by MARYLIN CIFUENTES ([id number]) on 08/21/2017 10:50:38 PM Referred By: CARISA Confirmed By:MARYLIN CIFUENTES
[2017-08-21 21:20] LABS: PLATELET COUNT, AUTOMATED 67 K/uL (150-450)
[2017-08-21] MEDS ORDERED: OXYC-823 PO (21:28)
[2017-08-21] MEDS ORDERED: DEXTROSE 50% 50 ML SYR IVP ONE ×2 (21:30→23:35)
[2017-08-21 22:00] VITALS: BP 104/65
--- NOTE | 2017-08-21 22:08 | RADIOLOGY IMAGING REPORT ---
FACILITY: [facility] PATIENT NAME: Kirti Olivares : 1975 MR: [id number] V: [id number] EXAM DATE: ORDERING PHYSICIAN: SHWETA YOUNGER TECHNOLOGIST: Location: [facility] [place] Patient: Kirti Olivares : 1975 Visit/Account:[id number] Date of Sevice: 08/21/2017 Examination: CHEST SINGLE AP Comparison: 08/17/2017 and earlier. History: fatigue Findings: Small left pleural effusion. Right more so than left perihilar and infrahilar ill-defined g roundglass and consolidation. No pneumothorax. Cardiac and hilar contour size is within normal limits and unchanged. Infusion port as before. No acute osseous abnormality. IMPRESSION: 1. Increased right greater than left perihilar and infrahilar ill-defined groundglass and consolidati on. Depending upon the clinical setting this could either be pulmonary edema or pneumonia. 2. Small left pleural effusion. Report Dictated By: Javy Ortega MD at 08/21/2017 10:02 PM Report E-Signed By: Javy Ortega MD at 08/21/2017 10:04 PM WSN:[id number]
[2017-08-21] MEDS ORDERED: NS(*) 0.9% 1000 ML BAG 1,000 ML IV ONE ×2 (22:15→23:05)
[2017-08-21] MEDS ORDERED: IMIPENEM/CILASTA(*) 500MG VIAL 500 MG in NS(*) 0.9% 100 ML BAG 100 ML IVPB ONE (22:30)
[2017-08-21 22:36] LABS: INR 4.69
[2017-08-21] MEDS ORDERED: HYDROCORTISONE 100 MG/2 ML IVP ONE (23:05)
== END 2017-08-22 00:22 | disposition short-term general hospital (02) ==
LOC: ER 20:28
DX: A41.9 Sepsis, unspecified organism (principal); J18.1 Lobar pneumonia, unspecified organism
CPT/HCPCS: 36415; 36416; 71045; 82140; 82948; 83605; 83735; 85025; 85610; 85730; 87040; 87077; 87186; 93005; 96361; 96374; 96375; 96376; 99291; 99292; J0743; J1720; J7030; J7050; 82040; 82247; 82310; 82374; 82435; 82565; 82947; 84075; 84132; 84155; 84295; 84450; 84460; 84520; 99285

== ENCOUNTER → 2017-08-21 | Outpatient (CLI) | payer BC, OTHER ==
[2017-07-09 11:04] VITALS: BMI 21.0
[~2017-08-21] MED LIST changes: -GADOBENATE 529MG/1ML 15ML VIAL IVP ONE; +LAC10L PO
== END ==
LOC: AMB 19:31
PROVIDERS: ATTEND Nurse Practitioner
DX: R09.02 Hypoxemia (principal); I95.9 Hypotension, unspecified; E16.2 Hypoglycemia, unspecified; C50.919 Malignant neoplasm of unspecified site of unspecified female breast; K72.90 Hepatic failure, unspecified without coma
CPT/HCPCS: A0425; A0427

== ENCOUNTER → 2017-08-21 | Outpatient (REF) ==
[2017-07-09 11:04] VITALS: BMI 21.0
== END ==
LOC: AMB 23:40
PROVIDERS: ATTEND Nurse Practitioner
DX: Z02.9 Encounter for administrative examinations, unspecified (principal)